=== PATIENT | female | born 1960 | race Caucasian/White ===

== ENCOUNTER 2024-03-28 07:46 | Outpatient (OUT) | payer OTHER, SELFPAY ==
[2024-03-28 08:34] LABS: Basophils Percent Auto 0.3 % (0.2-2.0); Eosinophils Absolute Auto 0.3 10^3/uL (0.0-0.7); Eosinophils Percent Auto 3.8 % (0.9-7.0); Hematocrit 40.8 % (36.0-48.0); Hemoglobin 13.3 g/dL (12.0-16.0); Immature Granulocytes Abs Auto 0.04 10^3/uL (0.00-0.03); Immature Granulocytes Pct Auto 0.6 % (0.0-0.5); Lymphocytes Absolute Auto 1.6 10^3/uL (1.2-3.8); Lymphocytes Percent Auto 22.5 % (20.5-60.0); Mean Corpuscular HGB Conc 32.6 g/dL (29.9-35.2); Mean Corpuscular Hemoglobin 29.2 pg (26.7-34.0); Mean Corpuscular Volume 89.5 fL (81.0-99.0); Mean Platelet Volume 13.5 fL (9.5-13.5); Monocytes Absolute Auto 0.8 10^3/uL (0.3-0.8); Monocytes Percent Auto 11.2 % (1.7-12.0); Neutrophils Absolute Auto 4.4 10^3/uL (1.4-6.5); Neutrophils Percent Auto 61.6 % (43.0-75.0); Platelet Count 144 10^3/uL (150-450); Red Blood Count 4.56 10^6/uL (4.20-5.40); Red Cell Distribution Width 12.7 % (11.0-15.0); White Blood Count 7.1 10^3/uL (4.0-11.0)
[2024-03-28 08:58] LABS: Estimated Average Glucose 120 mg/dL; Glycohemoglobin A1C 5.8 % (4.5-6.2)
[2024-03-28 11:21] LABS: Alanine Aminotransferase 31 U/L (14-59); Albumin Globulin Ratio 0.8; Albumin Level 3.1 g/dL (3.4-5.0); Alkaline Phosphatase 83 U/L (46-116); Anion Gap 10.3; Aspartate Amino Transferase 26 U/L (15-37); BUN Creatinine Ratio 28.1; Bilirubin Total 0.6 mg/dL (0.2-1.0); Calcium 9.2 mg/dL (8.5-10.1); Carbon Dioxide 28.8 mmol/L (21.0-32.0); Chloride 104 mmol/L (98-107); Chol HDL Ratio 3.6; Cholesterol 156 mg/dL (<=200); Estimated GFR (African America >60 (>=60); Estimated GFR (Non-African Ame >60 (>=60); Free T3 1.75 pg/mL (2.18-3.98); Globulin 3.7 g/dL; Glucose 94 mg/dL (74-106); HDL Cholesterol 43 mg/dL (40-60); Potassium 4.1 mmol/L (3.5-5.1); Sodium 139 mmol/L (136-145); Thyroid Stimulating Hormone 0.667 uIU/mL (0.358-3.740); Total Protein 6.8 g/dL (6.4-8.2); Triglycerides 155 mg/dL (<=150)
== END 2024-03-28 07:47 | disposition home or self-care (01) ==
LOC: LAB 07:47
PROVIDERS: PCP Family Medicine; Visit Provider Family Medicine
DX: E78.5 Hyperlipidemia, unspecified (principal); D64.9 Anemia, unspecified; Z12.12 Encounter for screening for malignant neoplasm of rectum; Z79.899 Other long term (current) drug therapy; R53.83 Other fatigue; R73.09 Other abnormal glucose
CPT/HCPCS: 36415; 80053; 80061; 83036; 84436; 84443; 84481; 85025

== ENCOUNTER 2024-09-26 06:50 | Outpatient (OUT) | payer OTHER, SELFPAY ==
--- OUTSIDE RECORDS SUMMARY | 2024-09-26 06:51 | XMS_ITS | CCD ---
Author Organization [facility] Care Team Providers Care Regional Sales Engineer Name Role Phone GITA ., DR MORIN Primary Care Unavailable KARASIK ., DR RAMOS Admitting Unavailabl e KARASIK ., DR RAMOS Attending Unavailabl e KARASIK ., DR RAMOS Consulting Unavailabl e ZIEBER, DR TEE Muller Consulting Unavailable HOY ., DR MORIN Attending Unavailable HOY ., DR MORIN Consulting Unavailable HOY ., DR MORIN Primary Care Unavailable HOY ., DR MORIN Admitting Unavailable HOY ., DR MORIN Attending Unavailable HOY ., DR MORIN Consulting Unavailable HOY ., DR MORIN Primary Care Unavailable HOY ., DR MORIN Admitting Unavailable HOY ., DR MORIN Consulting Unavailable HOY ., DR MORIN Primary Care Unavailable HOY ., DR MORIN Admitting Unavailable HOY ., DR MORIN Attending Unavailable Problems Active Problems Problem Classification Problem Date Documented Da te Episodic/Chronic Nutritional deficiencies (1 source) Vitamin D deficiency, unspecified; Translations: [VITAMIN D DEFICIENCY UNSPECIFIED] Onset: 02-09-2023 Chronic Unclassified (3 sources) COUGH, UNSPECIFIED; Translations: [COUGH, UNSPECIFIED] Onset: 10-27-2022 Unclassified (4 sources) CONTACT W/AND (SUSP) EXPOS COVID-19; Translations: [CONTACT W/AND (SUSP) EXPOS COVID-19] Onset: 07-27-2022 Past or Other Problems Problem Classification Problem Date Documented Da te Episodic/Chronic Other screening for suspected conditions (not mental disorders or infectious disease) (4 sources) Encounter for screening mammogram for malignant neoplasm of breast; Translations: [ENC SCR MAMMO MALIG NEOPLASM BREAST] Onset: 05-09-2022 Episodic Other upper respiratory disease (1 source) Nasal congestion; Translations: [NASAL CONGESTION] Onset: 10-27-2022 Episodic Other upper respiratory infections (1 source) Acute sinusitis, unspecified; Translations: [ACUTE SINUSITIS UNSPECIFIED] Onset: 07-27-2022 Episodic Residual codes; unclassified (1 source) Family history of leukemia; Translations: [FAMILY HISTORY OF LEUKEMIA] Onset: 05-12-2022 Episodic Residual codes; unclassified (1 source) Family history of malignant neoplasm of prostate; Translations: [FAMILY HX MALIG NEOPLASM PROSTATE] Onset: 05-12-2022 Episodic Unclassified (1 source) COUGH, UNSPECIFIED; Translations: [COUGH, UNSPECIFIED] Onset: 10-23-2022 Unclassified (1 source) CONTACT W/AND (SUSP) EXPOS COVID-19; Translations: [CONTACT W/AND (SUSP) EXPOS COVID-19] Onset: 07-26-2022 Results Test Name Value Interpretation Reference Range Facility INSULINon 02-06-2023 Insulin 14.0 uIU/mL Normal 2.6-24.9 [facility] Comment on above: Performed By: #### I NSULIN #### [facility] [address] [place] [address] Dr. Marium Murillo CBC AUTO DIFFon 02-05-2023 BASO # 0.0 103/ul Normal 0.0-0.1 [facility] Comment on above: Performed By: #### C BC #### [facility] [address] [place] [address] Dr. Marium Murillo Basophils/100 WBC (Bld) 0.3 % Normal 0.2-2.0 [facility] Comment on above: Performed By: #### C BC #### [facility] [address] [place] [address] Dr. Marium Murillo EO # 0.2 103/ul Normal 0.0-0.7 [facility] Comment on above: Performed By: #### C BC #### [facility] [address] [place] [address] Dr. Marium Murillo Eosinophils/100 WBC (Bld) 3.5 % Normal 0.9-7.0 [facility] Comment on above: Performed By: #### C BC #### [facility] [address] [place] [address] Dr. Marium Murillo Erythrocyte distribution width (RBC) [Ratio] 13.1 % Normal 11.0-15.0 [facility] Comment on above: Performed By: #### C BC #### [facility] [address] [place] [address] Dr. Marium Murillo Hematocrit (Bld) [Volume fraction] 41.6 % Normal 36.0-48.0 [facility] Comment on above: Performed By: #### C BC #### [facility] [address] [place] [address] Dr. Marium Murillo Hemoglobin (Bld) [Mass/Vol] 13.4 g/dL Normal 12.0-16.0 [facility] Comment on above: Performed By: #### C BC #### [facility] [address] [place] [address] Dr. Marium Murillo IG # 0.03 10e3/ul Normal 0.00-0.03 [facility] Comment on above: Performed By: #### C BC #### [facility] [address] [place] [address] Dr. Marium Murillo IG % 0.5 % Normal 0.0-0.5 [facility] Comment on above: Performed By: #### C BC #### [facility] [address] [place] [address] Dr. Marium Murillo LYMPH # 1.5 103/ul Normal 1.2-3.8 [facility] Comment on above: Performed By: #### C BC #### [facility] [address] [place] [address] Dr. Marium Murillo Lymphocytes/100 WBC (Bld) 23.8 % Normal 20.5-60.0 [facility] Comment on above: Performed By: #### C BC #### [facility] [address] [place] [address] Dr. Marium Murillo MANUAL DIFF REQ NO Normal [facility] Comment on above: Performed By: #### C BC #### [facility] [address] [place] [address] Dr. Marium Murillo MCH (RBC) [Entitic mass] 28.8 pg Normal 26.7-34.0 [facility] Comment on above: Performed By: #### C BC #### [facility] [address] [address] [address] Marium Murillo MCHC (RBC) [Mass/Vol] 32.2 g/dL Normal 29.9-35.2 [facility] Comment on above: Performed By: #### C BC #### [facility] [address] [address] [address] Marium Murillo MCV (RBC) [Entitic vol] 89.3 fL Normal 81.0-99.0 [facility] Comment on above: Performed By: #### C BC #### [facility] [address] [place] [address] Dr. Marium Murillo MONO # 0.8 103/ul Normal 0.3-0.8 [facility] Comment on above: Performed By: #### C BC #### [facility] [address] [place] [address] Dr. Marium Murillo Monocytes/100 WBC (Bld) 12.2 % Critically high 1.7-12.0 [facility] Comment on above: Performed By: #### C BC #### [facility] [address] [place] [address] Dr. Marium Murillo NEUT # 3.8 103/ul Normal 1.4-6.5 [facility] Comment on above: Performed By: #### C BC #### [facility] [address] [place] [address] Dr. Marium Murillo Neutrophils/100 WBC (Bld) 59.7 % Normal 43.0-75.0 [facility] Comment on above: Performed By: #### C BC #### [facility] [address] [address] [address] Marium Murillo Platelet mean volume (Bld) [Entitic vol] 13.3 fL Normal 9.5-13.5 [facility] Comment on above: Performed By: #### C BC #### [facility] [address] [place] [address] Dr. Marium Murillo PLT 172 103/ul Normal 150-450 [facility] Comment on above: Performed By: #### C BC #### [facility] [address] [address] [address] Marium Murillo RBC 4.66 106/ul Normal 4.20-5.40 [facility] Comment on above: Performed By: #### C BC #### [facility] [address] [address] [address] Marium Murillo WBC 6.3 103/ul Normal 4.0-11.0 [facility] Comment on above: Performed By: #### C BC #### [facility] [address] [address] [address] Marium Murillo FREE THYROXINE INDEX T7on FTI 1.51 Normal 1.30-4.50 [facility] Comment on above: Performed By: #### T SH, LIPID, CMP, T7 ####[facility] [address] [address]Dr. Marium Murillo T3U 35.0 % Normal 30.0-39.0 [facility] Comment on above: Performed By: #### T SH, LIPID, CMP, T7 ####[facility] [address] [id number]. Marium Murillo T4 [Mass/Vol] 4.30 ug/dL Critically low 4.80-13.90 [facility] Comment on above: Performed By: #### T SH, LIPID, CMP, T7 ####[facility] [address] [id number]. Marium Murillo GLYCOHEMOGLOBIN A1Con 2022 ADA RECOMMENDATION SEE BELOW Normal [facility] Comment on above: Result Comment: ADA RECOMMENDED LIMIT 4.0 - 6.0 ADA THERAPEUTIC TARGET < 7.0 ACTION SUGGESTED > 7.0 Performed By: #### A 1C #### [facility] [address] [address] [address] Marium Murillo Glucose [Mass/Vol] 111 mg/dL Normal [facility] Comment on above: Performed By: #### A 1C #### [facility] [address] [address] [address] Marium Murillo HbA1c (Bld) [Mass fraction] 5.5 % Normal 4.5-6.2 [facility] Comment on above: Performed By: #### A 1C #### [facility] [address] [address] [address] Marium Murillo IRONon 02-05-2023 Iron [Mass/Vol] 72.0 ug/dL Normal 50.0-170.0 [facility] Comment on above: Performed By: #### V ITAD, IRON #### [facility] [address] [address] [address] Marium Murillo LIPID PROFILEon 02-05-2023 CHOL-HDL RATIO NORM SEE BELOW Normal [facility] Comment on above: Result Comment: 3.3 - 4.4 LOW RISK 4.4 - 7.1 AVERAGE RISK 7.1 - 11.0 MODERATE RISK >11.0 HIGH RISK Performed By: #### T SH, LIPID, CMP, T7 ####[facility] [address] [address]Dr. Marium Murillo Cholesterol [Mass/Vol] 179 mg/dL Normal <=200 [facility] Comment on above: Performed By: #### T SH, LIPID, CMP, T7 ####[facility] [address] [address]Dr. Marium Murillo Cholesterol in HDL [Mass/Vol] 46 mg/dL Normal 40-60 [facility] Comment on above: Performed By: #### T SH, LIPID, CMP, T7 ####[facility] [address] [address]Dr. Marium Murillo Cholesterol in LDL [Mass/Vol] 105.6 mg/dL Normal [facility] Comment on above: Performed By: #### T SH, LIPID, CMP, T7 ####[facility] [address] [id number]. Marium Murillo Cholesterol.total/Ch olesterol in HDL [Mass ratio] 3.9 {ratio} Normal [facility] Comment on above: Performed By: #### T SH, LIPID, CMP, T7 ####[facility] [address] [id number]. Marium Murillo HDL NORMAL > or = 60 mg/dl - LO W CARDIOVASCULAR RISK <40 mg/dl - HIGH CARDIOVASCULAR RISK Normal [facility] Comment on above: Performed By: #### T SH, LIPID, CMP, T7 ####[facility] [address] [address]Dr. Marium Murillo LDL CALC NORMAL SEE BELOW Normal [facility] Comment on above: Result Comment: <100 mg/dl OPTIMAL 100 - 129 mg/dl NEAR OR ABOVE OPTIMAL 130 - 159 mg/dl BORDERLINE HIGH 160 - 189 mg/dl HIGH >190 mg/dl VERY HIGH Performed By: #### T SH, LIPID, CMP, T7 ####[facility] [address] [address]Dr. Marium Murillo Triglyceride [Mass/Vol] 137 mg/dL Normal <=150 [facility] Comment on above: Performed By: #### T SH, LIPID, CMP, T7 ####[facility] [address] [address]Dr. Marium Murillo VLDL CALC 27.4 mg/dL Normal [facility] Comment on above: Performed By: #### T SH, LIPID, CMP, T7 ####[facility] [address] [address]Dr. Marium Murillo PROF 14(COMP METB)on 023 Albumin [Mass/Vol] 3.5 g/dL Normal 3.4-5.0 [facility] Comment on above: Performed By: #### T SH, LIPID, CMP, T7 ####[facility] [address] [address]Dr. Marium Murillo Albumin/Globulin [Mass ratio] 1.0 {ratio} Normal [facility] Comment on above: Performed By: #### T SH, LIPID, CMP, T7 ####[facility] [address] [address]Dr. Marium Murillo ALP [Catalytic activity/Vol] 84 U/L Normal 46-116 [facility] Comment on above: Performed By: #### T SH, LIPID, CMP, T7 ####[facility] [address] [id number]. Marium Murillo ALT [Catalytic activity/Vol] 32 U/L Normal 14-59 [facility] Comment on above: Performed By: #### T SH, LIPID, CMP, T7 ####[facility] [address] [place] [id number]. Marium Murillo Anion gap [Moles/Vol] 8.2 mmol/L Normal [facility] Comment on above: Performed By: #### T SH, LIPID, CMP, T7 ####[facility] [address] [place] [address]Dr. Marium Murillo AST [Catalytic activity/Vol] 27 U/L Normal 15-37 [facility] Comment on above: Performed By: #### T SH, LIPID, CMP, T7 ####[facility] [address] [address]Dr. Marium Murillo Bilirubin [Mass/Vol] 0.4 mg/dL Normal 0.2-1.0 [facility] Comment on above: Performed By: #### T SH, LIPID, CMP, T7 ####[facility] [address] [address]Dr. Marium Murillo Calcium [Mass/Vol] 9.2 mg/dL Normal 8.5-10.1 [facility] Comment on above: Performed By: #### T SH, LIPID, CMP, T7 ####[facility] [address] [address]Dr. Marium Murillo Chloride [Moles/Vol] 107 mmol/L Normal 98-107 [facility] Comment on above: Performed By: #### T SH, LIPID, CMP, T7 ####[facility] [address] [address]Dr. Marium Murillo CO2 [Moles/Vol] 31.9 mmol/L Normal 21.0-32.0 [facility] Comment on above: Performed By: #### T SH, LIPID, CMP, T7 ####[facility] [address] [address]Dr. Marium Murillo Creatinine [Mass/Vol] 0.59 mg/dL Normal 0.55-1.02 [facility] Comment on above: Performed By: #### T SH, LIPID, CMP, T7 ####[facility] [address] [address]Dr. Marium Murillo EGFR-AF KITTITIAN >60 Normal >=60 [facility] Comment on above: Performed By: #### T SH, LIPID, CMP, T7 ####[facility] [address] [address]Dr. Marium Murillo EGFR-NON AF KITTITIAN >60 Normal >=60 [facility] Comment on above: Performed By: #### T SH, LIPID, CMP, T7 ####[facility] [address] [address]Dr. Marium Murillo Globulin (S) [Mass/Vol] 3.6 g/dL Normal [facility] Comment on above: Performed By: #### T SH, LIPID, CMP, T7 ####[facility] [address] [address]Dr. Marium Murillo Glucose [Mass/Vol] 91 mg/dL Normal 74-106 [facility] Comment on above: Performed By: #### T SH, LIPID, CMP, T7 ####[facility] [address] [address]Dr. Marium Murillo Potassium [Moles/Vol] 4.1 mmol/L Normal 3.5-5.1 [facility] Comment on above: Performed By: #### T SH, LIPID, CMP, T7 ####[facility] [address] [address]Dr. Marium Murillo Protein [Mass/Vol] 7.1 g/dL Normal 6.4-8.2 [facility] Comment on above: Performed By: #### T SH, LIPID, CMP, T7 ####[facility] [address] [address]Dr. Marium Murillo Sodium [Moles/Vol] 143 mmol/L Normal 136-145 [facility] Comment on above: Performed By: #### T SH, LIPID, CMP, T7 ####[facility] [address] [place], [place] [address]Xk. Marium Murillo Urea nitrogen [Mass/Vol] 21.0 mg/dL Critically high 7.0-18.0 [facility] Comment on above: Performed By: #### T SH, LIPID, CMP, T7 ####[facility] [address] [place], [place] [address]Gq. Marium Murillo Urea nitrogen/Creatinine [Mass ratio] 35.6 mg/mg Normal [facility] Comment on above: Performed By: #### T SH, LIPID, CMP, T7 ####[facility] [address] [place], [place] [address]Bp. Marium Murillo TSHon 02-05-2023 TSH 0.666 uIU/mL Normal 0.358-3.740 [facility] Comment on above: Performed By: #### T SH, LIPID, CMP, T7 #### [facility] [address] [address] [address] Marium Murillo VITAMIN D 25 OHon 02-05-2023 VIT D 25-OH 26.2 ng/mL Normal [facility] Comment on above: Performed By: #### Patricia [place] IRON #### [facility] [address] [place] [address] Dr. Marium Murillo VIT D RANGES SEE BELOW Normal [facility] Comment on above: Result Comment: <20 ng/mL Vit D deficient 20 - <30 ng/mL Vit D insufficient 30 - 100 ng/mL Vit D sufficient >100 ng/mL Potential Toxicity Performed By: #### Patricia [place], IRON #### [facility] [address] [place] [address] Dr. Marium Murillo Covid-19 PCR ([facility])on 10-05 SARS-CoV-2 (COVID-19) RNA MICHELL+probe Ql (Unsp spec) Not detected Normal NOT DETECTED [facility] Comment on above: Result Comment: When diagnostic testing is negative, the possibility of a false negative should be considered in the context of a patient's recent exposures and the presence of clinical signs and symptoms consistent with SARS-CoV-2. This test is not yet approved or cleared by the [place] FDA. When there are no FDA-approved or cleared tests available, and other criteria are met, FDA can make tests available under an emergency access mechanism called an Emergency Use Authorization (EUA). The EUA for this test is supported by the [place] of Health and Human Service's declaration that circumstances exist to justify the emergency use of in vitro diagnostics for the detection and/or diagnosis of the virus that causes COVID-19. This EUA will remain in effect for the duration of the COVID-19 declaration justifying emergency of IVDs, unless it is terminated or revoked by the FDA (after which the test may no longer be used). Performed By: #### C VDTB #### [facility] [address] [place] [address] Dr. Marium Murillo INFLUENZA A AND B AGon 10-23 INFLUBNEGH SEE BELOW Normal [facility] Comment on above: Result Comment: Nega tive for Flu B protein antigen. Infection due to Flu B cannot be ruled out. Flu B antigen in the sample may be below the detection limit of the test. Performed By: #### I NFLUAB #### [facility] [address] [place] [address] Dr. Marium Murillo INFLUENZA A AG Positive Abnormal NEGATIVE SEE COMMENT [facility] Comment on above: Performed By: #### I NFLUAB #### [facility] [address] [place] [address] Dr. Marium Murillo INFLUENZA B AG Negative Normal NEGATIVE SEE COMMENT [facility] Comment on above: Performed By: #### I NFLUAB #### [facility] [address] [place] [address] Dr. Marium Murillo INFLUPOSH SEE BELOW Normal [facility] Comment on above: Result Comment: NOTE : Live attenuated influenzae vaccine viruses can cause a positive result for a rapid influenza diagnostic test if administered up to 7 days prior to rapid testing. Performed By: #### I NFLUAB #### [facility] [address] [place] [address] Dr. Marium Murillo INTERNAL CONTROLS Within Normal Limits Normal Wi thin Normal Limits [facility] Comment on above: Performed By: #### I NFLUAB #### [facility] [address] [place] [address] Dr. Marium Murillo Covid-19 PCR ([facility])on 07-07 SARS-CoV-2 (COVID-19) RNA MICHELL+probe Ql (Unsp spec) Not detected Normal NOT DETECTED [facility] Comment on above: Result Comment: This test is not yet approved or cleared by the [place] FDA. When there are no FDA-approved or cleared tests available, and other criteria are met, FDA can make tests available under an emergency access mechanism called an Emergency Use Authorization (EUA). The EUA for this test is supported by the [place] [employer] of Health and Human Service's (HHS's) declaration that circumstances exist to justify the emergency use of in vitro diagnostics for the detection and/or diagnosis of the virus that causes COVID-19. This EUA will remain in effect (meaning this test can be used) for the duration of the COVID-19 declaration justifying emergency of IVDs, unless it is terminated or revoked by FDA (after which the test may no longer be used). When diagnostic testing is negative, the possibility of a false negative should be considered in the context of a patient's recent exposures and the presence of clinical signs and symptoms consistent with SARS-CoV-2. Performed By: #### C VDTB #### [facility] [address] [place] [address] Dr. Marium Murillo MG MAMM SCREEN 3D JOSÉ MIGUEL CADon 05-09-2022 MG MAMM SCREEN 3D JOSÉ MIGUEL CAD Patient: EMILY WATKINS Exam Date: 05/09/2022 : 1960 Gender:F Ordering : DR RICHARD FREEMAN . Admission #: [id number] Family : Order #: [id number] CLICK HERE TO VIEW EXAM RADIOLOGY REPORT PROCEDURE: MAMMOGRAM SCREENING 3D BILATERAL CAD COMPARISON: MG MAMM SCREEN 3D JOSÉ MIGUEL CAD, 04/19/2021. MG MAMM SCREEN JOSÉ MIGUEL W CAD, 01/07/2019. INDICATIONS: Screening mammography Calculator Name NCI Breast Cancer Risk Assessment Tool 5 Year Breast Cancer Risk 2.00% Lifetime Breast Cancer Risk 9.70% Personal Breast Cancer No Personal Ovarian Cancer No Treatments None Family Cancers Grandmother-maternal with leukemia cancer at age 80; Grandfather-maternal with prostate cancer at age 50. LOCATION: [facility] BREAST COMPOSITION: Almost entirely fatty. FINDINGS: DIAGNOSTIC CATEGORY 1--NEGATIVE. RIGHT BREAST: No significant suspicious finding. No significant change has occurred. LEFT BREAST: No significant suspicious finding. No significant change has occurred. RECOMMENDATIONS: ROUTINE MAMMOGRAM AND CLINICAL EVALUATION IN 12 MONTHS. PLEASE NOTE: A NORMAL MAMMOGRAM DOES NOT EXCLUDE THE POSSIBILITY OF BREAST CANCER. A CLINICALLY SUSPICIOUS PALPABLE LUMP SHOULD BE BIOPSIED. Dictated by: Tee Price M.D. on 05/11/2022 at 13:23 Approved by: Tee Price M.D. on 05/11/2022 at 13:25 Normal [facility] 07-25-2021 CNPN Telephone ([facility]) EMILY CALLES ([id number]) 1960 F Date Time Provider Department 07/25/21 VINAY HALL [facility] During your visit today, we recorded the following information about you: Chanel Ward 07/25/2021 9:15 AM Signed Additional [place] paperwork from [employer] being faxed for completion. Patient saw Dr. Hall on and was cleared to return to work. However, her employer is redirecting her to [employer] for return clearance. New return to work date on 07/27/2021 Lalitha can be reached at [phone] with any questions. Chanel [facility] Ivnaia Slater MA 07/25/2021 3:41 PM Signed Noted. I will drop off paperwork at [facility] so that Myra can have Dr. Hall sign off on and fax tomorrow. JUVENAL Carrillo MA 07/27/2021 2:46 PM Signed Employer Forms for Patient/Caregiver Time Off of Work Completed, signed by provider, and returned to below contact. Completed copy scanned in [facility] Date of Surgery: 06/24/2021 Estimated RTW date:07/25/2021 Employer: [employer] Date sent to employer: 07/27/2021 Received fax confirmation: YES Allergies As of Date: 07/25/2021 (No Known Allergies) Date Reviewed: 07/21/2021 Reviewed by: Vinay Hall MD - Fully Assessed Reason for Visit: FMLA Paperwork [7993] Prescriptions as of 07/27/2021 - oxyCODONE IR (ROXICODONE) 5 mg immediate release tablet Take 1 tablet by mouth every 6 hours as needed for pain. - neomycin 500 mg tablet Take 2 tablets by mouth as directed. Take 2 tablets at 6 pm, again at 7 pm and at 11 pm the evening prior to surgery - metroNIDAZOLE (FLAGYL) 500 mg tablet Take 1 tablet by mouth as directed. Take 1 tablet at 6 pm, another at 7 pm and again at 11 pm, the evening prior to surgery - citalopram (CELEXA) 20 mg tablet Take 20 mg by mouth once daily. - fluocinonide (LIDEX) 0.05 % cream Apply 1 application to affected area as needed. - liothyronine (CYTOMEL) 5 mcg tablet Take 10 mcg by mouth once daily. - diclofenac, EC, (VOLTAREN) 75 mg EC tablet Take 75 mg by mouth twice daily. - fenofibrate nanocrystallized (TRICOR) 145 mg tablet Take 145 mg by mouth once daily. - multivit with minerals/lutein (MULTIVITAMIN 50 PLUS ORAL) Take 1 tablet by mouth once daily. Problem List As Of Date 07/25/2021 Noted Resolved Colonic mass [K63.89] 06/09/2021 Mixed hyperlipidemia [E78.2] 06/09/2021 Depression [F32.9] 06/09/2021 Diverticula of colon [K57.30] 06/09/2021 IBS (irritable bowel syndrome) [K58.9] Acquired hypothyroidism [E03.9] Morbidly obese (HCC) [E66.01] Encounter Status:Closed by RODRÍGUEZ WILSON on 07/27/21 Normal [facility] CNCOon 07-22-2021 CNCO Letter Text Normal [facility] CNOVon 07-21-2021 CNOV Office Visit (NIRALISAV ) EMILY CALLES ([id number]) 1960 F Date Time Provider Department 07/21/21 11:45 AM VINAY HALL During your visit today, we recorded the following information about you: Pulse Blood pressure Weight 94/minute 97/70 100.7 kg Vinay Hall MD 07/21/2021 12:38 PM Signed COLORECTAL SURGERY July 21, 2021 Emily Haywood 61 year old Chief Complaint: Post-op visit s/p Laparoscopic Proctosigmoidectomy (Low Anterior Resection), Laparoscopic Mobilization of Splenic Flexure, Flexible Sigmoidoscopy, Laparoscopic Omental Pedicle Flap 06/24/21 History of Present Illness: Emily Haywood is a 61 year old female here for post-op visit. Pathology: FINAL DIAGNOSIS 1. Sigmoid colon and rectum, resection (A) - Tubulovillous adenoma with focal high-grade dysplasia (see comment). - Diverticulosis. - Twelve lymph nodes, negative for malignancy (0). 2. Distal donut, excision (B) - Segment of colon with no diagnostic abnormality. She feels well. Constipation at times. No pain. Tolerating a diet PAST MEDICAL HISTORY Diagnosis Date - Acquired hypothyroidism - Generalized anxiety disorder - IBS (irritable bowel syndrome) - Mixed hyperlipidemia - Obesity PAST SURGICAL HISTORY Procedure Laterality Date - COLONOSCOPY 2020 - CYST EXCISION Left foot x 2 - EXTRACTION ERUPTED TOOTH wisdom teeth - ORAL SURGERY PROCEDURE Gum surgery for gingivitis - REVISE MEDIAN N/CARPAL TUNNEL SURG Right - SHOULDER SURGERY HX Right 2019 - SIGMOIDOSCOPY 2020 - TONSILLECTOMY HX 1963 Current Outpatient Medications Medication Sig Dispense Refill - oxyCODONE IR (ROXICODONE) 5 mg immediate release tablet Take 1 tablet by mouth every 6 hours as needed for pain. 25 tablet 0 - neomycin 500 mg tablet Take 2 tablets by mouth as directed. Take 2 tablets at 6 pm, again at 7 pm and at 11 pm the evening prior to surgery 6 tablet 0 - metroNIDAZOLE (FLAGYL) 500 mg tablet Take 1 tablet by mouth as directed. Take 1 tablet at 6 pm, another at 7 pm and again at 11 pm, the evening prior to surgery 3 tablet 0 - citalopram (CELEXA) 20 mg tablet Take 20 mg by mouth once daily. - fluocinonide (LIDEX) 0.05 % cream Apply 1 application to affected area as needed. - liothyronine (CYTOMEL) 5 mcg tablet Take 10 mcg by mouth once daily. - diclofenac, EC, (VOLTAREN) 75 mg EC tablet Take 75 mg by mouth twice daily. - fenofibrate nanocrystallized (TRICOR) 145 mg tablet Take 145 mg by mouth once daily. - multivit with minerals/lutein (MULTIVITAMIN 50 PLUS ORAL) Take 1 tablet by mouth once daily. No current facility-administered medications for this visit. ALLERGIES No Known Allergies FAMILY HISTORY Problem Relation Age of Onset - other (GBS) Mother 40 - Dementia Mother - Heart Father - Vision loss Father Social History Tobacco Use - Smoking status: Former Smoker Packs/day: 0.75 Years: 15.00 Pack years: 11.25 Types: Cigarettes Quit date: 1989 Years since quittin.7 - Smokeless tobacco: Never Used Vaping Use - Vaping Use: Never used Substance Use Topics - Alcohol use: Not Currently - Drug use: Never Physical Exam: BP 97/70 Pulse 94 Wt 100.7 kg (222 lb) BMI 38.11 kg/m? General Appearance: Well appearing, alert, in no acute distress, well-hydrated, well nourished. Abdomen: soft, nontender, incisions well healed Assessment Assessment and Plan: Emily Haywood is a 61 year old female status post laparoscopic LAR for large circumferential rectal polyp. Pathology confirmed tubulovillous adenoma. She will continue use MiraLAX as needed for constipation. She will return to see me as needed. She knows she needs a colonoscopy in 1 year with her endoscopist. Vinay Hall MD Colorectal Surgery Referring Provider: VINAY HALL [[id number]] Allergies As of Date: 07/21/2021 (No Known Allergies) Date Reviewed: 07/21/2021 Reviewed by: Vinay Hall MD - Fully Assessed Reason for Visit: Post Op [174] Primary Visit Diagnosis:Rectal polyp [K62.1] Prescriptions as of 07/21/2021 - oxyCODONE IR (ROXICODONE) 5 mg immediate release tablet Take 1 tablet by mouth every 6 hours as needed for pain. - neomycin 500 mg tablet Take 2 tablets by mouth as directed. Take 2 tablets at 6 pm, again at 7 pm and at 11 pm the evening prior to surgery - metroNIDAZOLE (FLAGYL) 500 mg tablet Take 1 tablet by mouth as directed. Take 1 tablet at 6 pm, another at 7 pm and again at 11 pm, the evening prior to surgery - citalopram (CELEXA) 20 mg tablet Take 20 mg by mouth once daily. - fluocinonide (LIDEX) 0.05 % cream Apply 1 application to affected area as needed. - liothyronine (CYTOMEL) 5 mcg tablet Take 10 mcg by mouth once daily. - diclofenac, EC, (VOLTAREN) 75 mg EC tablet Take 75 mg by mouth twice daily. - fenofibrate nanocrystallized (TRICOR) 145 (more content not included)... Normal [facility] Consultation Noteon 06-29-20 Consultation Note [id number] :127 Normal [facility] EMILY CALLES ([id number]) 1960 F Date Time Provider Department 06/28/21 VINAY HALL [facility] During your visit today, we recorded the following information about you: Chanel Wadr 06/28/2021 9:25 AM Signed Patient called with concerns of a itchy rash on her upper abdomen that has gotten bigger over the last few days. Noticed after her Lovenox injection. Patient can be reached at [phone]. Chanel Orta RN 06/28/2021 10:49 AM Signed Returned call and spoke with patient, S/p Laparoscopic Proctosigmoidectomy (Low Anterior Resection), Laparoscopic Mobilization of Splenic Flexure, Flexible Sigmoidoscopy, Laparoscopic Omental Pedicle Flap 06/24 Cc: rash to torso -pt c/o a red, raised, itchy rash to torso -pt states it was noticed Sunday evening before discharge from [facility] -denies chest pain or shortness of breath -pt states it is not near the incision site, but surrounds it -concerned it is caused by the Lovenox injections -tried disitin for the itching with no relief Encouraged patient to try over the counter Benadryl cream and an ice pack to assist with the discomfort. Explained to continue with the Lovenox injections as this is likely caused by something else (possibly sheets in the hospital or the drape while in surgery). The office will call to scheduled her follow up appointment and she can be assessed at that time. Explained to call the office with persistent or worsening symptoms. Patient is understanding and agreeable with this plan. Allergies As of Date: 06/28/2021 (No Known Allergies) Date Reviewed: 06/25/2021 Reviewed by: Nely Anne RN - Fully Assessed Reason for Visit: Post Op [174] Prescriptions as of 06/28/2021 - enoxaparin (LOVENOX) 40 mg/0.4 mL Inject 0.4 mL subcutaneously once daily for 21 days. - oxyCODONE IR (ROXICODONE) 5 mg immediate release tablet Take 1 tablet by mouth every 6 hours as needed for pain. - neomycin 500 mg tablet Take 2 tablets by mouth as directed. Take 2 tablets at 6 pm, again at 7 pm and at 11 pm the evening prior to surgery - metroNIDAZOLE (FLAGYL) 500 mg tablet Take 1 tablet by mouth as directed. Take 1 tablet at 6 pm, another at 7 pm and again at 11 pm, the evening prior to surgery - citalopram (CELEXA) 20 mg tablet Take 20 mg by mouth once daily. - fluocinonide (LIDEX) 0.05 % cream Apply 1 application to affected area as needed. - liothyronine (CYTOMEL) 5 mcg tablet Take 10 mcg by mouth once daily. - diclofenac, EC, (VOLTAREN) 75 mg EC tablet Take 75 mg by mouth twice daily. - fenofibrate nanocrystallized (TRICOR) 145 mg tablet Take 145 mg by mouth once daily. - multivit with minerals/lutein (MULTIVITAMIN 50 PLUS ORAL) Take 1 tablet by mouth once daily. Problem List As Of Date 06/28/2021 Noted Resolved Colonic mass [K63.89] 06/09/2021 Mixed hyperlipidemia [E78.2] 06/09/2021 Depression [F32.9] 06/09/2021 Diverticula of colon [K57.30] 06/09/2021 IBS (irritable bowel syndrome) [K58.9] Acquired hypothyroidism [E03.9] Morbidly obese (HCC) [E66.01] Encounter Status:Closed by ЮЛИЯ ORTA on 06/28/21 Normal [facility] Telephone ([facility]) EMILY CALLES ([id number]) 1960 F Date Time Provider Department 06/28/21 ESTRELLITA MORA [facility] During your visit today, we recorded the following information about you: Estrellita Mora, Student 06/28/2021 11:19 AM Signed Record ID: [id number] Patient Name: Emily Haywood Hospital: [facility] [place]: [facility] [place] Attending: Vinay Hall Center: Colorectal Surgery INSTRUCTIONS Continue with script and ensure patient has appropriate number for [facility] or Appointment Center according to discharging physician?s specialty and location at end of call SN TRANSFER TO [facility] SURVEY INFORMATION Medical/Nurse Nautical Instrument Mechanic: Luisa Gallagher 1. Your discharge instructions are important in guiding you through the recovery process. Is there anything I could help you clarify on your discharge instructions? (Standard Question) No, no clarification needed 2. We encourage a follow up appointment with your physician. Do you have one scheduled? If not; What is the name of the doctor you should be seeing for your follow-up care? (Standard Question) No, patient prefers to schedule in own time 3. Many patients have concerns about their medications once they are home. Do you have any questions about getting or taking your medications? (Standard Question) No 4. Do you have any new or worsening symptoms? (Standard Question) Yes MA/SN Notes: Rash but Patient been in contact with doctor office about this Allergies As of Date: 06/28/2021 (No Known Allergies) Date Reviewed: 06/25/2021 Reviewed by: Nely Anne RN - Fully Assessed Reason for Visit: Follow Up [171] Cmt: All Clear Prescriptions as of 06/28/2021 - enoxaparin (LOVENOX) 40 mg/0.4 mL Inject 0.4 mL subcutaneously once daily for 21 days. - oxyCODONE IR (ROXICODONE) 5 mg immediate release tablet Take 1 tablet by mouth every 6 hours as needed for pain. - neomycin 500 mg tablet Take 2 tablets by mouth as directed. Take 2 tablets at 6 pm, again at 7 pm and at 11 pm the evening prior to surgery - metroNIDAZOLE (FLAGYL) 500 mg tablet Take 1 tablet by mouth as directed. Take 1 tablet at 6 pm, another at 7 pm and again at 11 pm, the evening prior to surgery - citalopram (CELEXA) 20 mg tablet Take 20 mg by mouth once daily. - fluocinonide (LIDEX) 0.05 % cream Apply 1 application to affected area as needed. - liothyronine (CYTOMEL) 5 mcg tablet Take 10 mcg by mouth once daily. - diclofenac, EC, (VOLTAREN) 75 mg EC tablet Take 75 mg by mouth twice daily. - fenofibrate nanocrystallized (TRICOR) 145 mg tablet Take 145 mg by mouth once daily. - multivit with minerals/lutein (MULTIVITAMIN 50 PLUS ORAL) Take 1 tablet by mouth once daily. Problem List As Of Date 06/28/2021 Noted Resolved Colonic mass [K63.89] 06/09/2021 Mixed hyperlipidemia [E78.2] 06/09/2021 Depression [F32.9] 06/09/2021 Diverticula of colon [K57.30] 06/09/2021 IBS (irritable bowel syndrome) [K58.9] Acquired hypothyroidism [E03.9] Morbidly obese (HCC) [E66.01] Encounter Status:Closed by ESTRELLITA MORA on 8/24/21 Normal [facility] Basic Metabolic Panlon 06-26 Anion gap [Moles/Vol] 9 mmol/L Normal 9-18 [facility] Comment on above: Performed By: #### B LEONCIO, CBCDIF #### [place] [phone] Calcium [Mass/Vol] 8.7 mg/dL Normal 8.5-10.5 [facility] Comment on above: Performed By: #### B LEONCIO, CBCDIF #### [phone] Chloride [Moles/Vol] 109 mmol/L Normal 98-110 [facility] Comment on above: Performed By: #### B LEONCIO, CBCDIF #### [place] [phone] CO2 [Moles/Vol] 25 mmol/L Normal 23-32 [facility] Comment on above: Performed By: #### B LEONCIO, CBCDIF #### [phone] Creatinine [Mass/Vol] 0.54 mg/dL Low 0.70-1.40 [facility] Comment on above: Performed By: #### B LEONCIO, CBCDIF #### [place] [phone] eGFR- Amer. >60 Normal >60 [facility] Comment on above: Performed By: #### B LEONCOI, CBCDIF #### [place] [id number] eGFR-All Other Races >60 Normal >60 [facility] Comment on above: Result Comment: eGFR (Estimated GFR) Units of measure: mL/min/1.73 meters squared eGFR is derived from the reexpressed MDRD Study equation using the following parameters: serum creatinine, age, gender and race. The creatinine assay has been calibrated to be traceable to IDMS. An eGFR <60 mL/min/1.73m2 for >3 months is consistent with chronic kidney disease. Refer to KDOQI guidelines for clinical interpretation. In patients with unstable renal function, e.g. those with acute kidney injury, the eGFR may not accurately reflect actual GFR. Performed By: #### B LEONCIO, CBCDIF #### [phone] Glucose [Mass/Vol] 78 mg/dL Normal 65-100 [facility] Comment on above: Performed By: #### B MP, CBCDIF #### [place] [phone] Potassium [Moles/Vol] 4.1 mmol/L Normal 3.5-5.0 [facility] Comment on above: Performed By: #### B LEONCIO, CBCDIF #### [place] [phone] Sodium [Moles/Vol] 143 mmol/L Normal 132-148 [facility] Comment on above: Performed By: #### B LEONCIO, CBCDIF #### [place] [phone] Urea nitrogen [Mass/Vol] 13 mg/dL Normal 8-25 [facility] Comment on above: Performed By: #### B LEONCIO, CBCDIF #### [place] [phone] CBC and Differentialon 06-26 Abs Baso <0.03 Normal <0.11 [facility] Comment on above: Performed By: #### B LEONCIO, CBCDIF #### [place] [phone] Abs Braxton 0.71 k/uL Normal <0.87 [facility] Comment on above: Performed By: #### B LEONCIO, CBCDIF #### [place] [phone] Abs Neut 4.13 k/uL Normal 1.45-7.50 [facility] Comment on above: Performed By: #### B LEONCIO, CBCDIF #### [place] [phone] Absolute nRBC <0.01 Normal <0.01 [facility] Comment on above: Performed By: #### B MP, CBCDIF #### [address] Basophils/100 WBC (Bld) 0.3 % Normal [facility] Comment on above: Performed By: #### B MP, CBCDIF #### [place] [phone] DTYPE Auto Diff Normal [facility] Comment on above: Performed By: #### B MP, CBCDIF #### [address] Eosinophils (Bld) [#/Vol] 0.13 10*3/uL Normal <0.46 [facility] Comment on above: Performed By: #### B MP, CBCDIF #### [address] Eosinophils/100 WBC (Bld) 2.0 % Normal [facility] Comment on above: Performed By: #### B MP, CBCDIF #### [place] [phone] Erythrocyte distribution width (RBC) [Ratio] 12.6 % Normal 11.5-15.0 [facility] Comment on above: Performed By: #### B MP, CBCDIF #### [address] Hematocrit (Bld) [Volume fraction] 33.7 % Low 36.0-46.0 [facility] Comment on above: Performed By: #### B MP, CBCDIF #### [place] [phone] Hemoglobin (Bld) [Mass/Vol] 11.0 g/dL Low 11.5-15.5 [facility] Comment on above: Performed By: #### B MP, CBCDIF #### [place] [phone] Lymphocytes (Bld) [#/Vol] 1.49 10*3/uL Normal 1.00-4.00 [facility] Comment on above: Performed By: #### B MP, CBCDIF #### [phone] Lymphocytes/100 WBC (Bld) 23.0 % Normal [facility] Comment on above: Performed By: #### B MP, CBCDIF #### [place] [phone] MCH 29.4 pG Normal 26.0-34.0 [facility] Comment on above: Performed By: #### B MP, CBCDIF #### [place] [phone] MCHC (RBC) [Mass/Vol] 32.6 g/dL Normal 30.5-36.0 [facility] Comment on above: Performed By: #### B MP, CBCDIF #### [place] [phone] MCV (RBC) [Entitic vol] 90.1 fL Normal 80.0-100.0 [facility] Comment on above: Performed By: #### B MP, CBCDIF #### [phone] Monocytes/100 WBC (Bld) 11.0 % Normal [facility] Comment on above: Performed By: #### B MP, CBCDIF #### [place] [phone] Neutrophils/100 WBC (Bld) 63.7 % Normal [facility] Comment on above: Performed By: #### B MP, CBCDIF #### [place] [phone] NRBCs 0.0 /100 WBC Normal 0 [facility] Comment on above: Performed By: #### B MP, CBCDIF #### [place] [phone] Platelet mean volume (Bld) [Entitic vol] 13.5 fL High 9.0-12.7 [facility] Comment on above: Performed By: #### B MP, CBCDIF #### [place] [id number] [place] [address] Platelets (Bld) [#/Vol] 127 10*3/uL Low 150-400 [facility] Comment on above: Performed By: #### B MP, CBCDIF #### [place] [phone] RBC (Bld) [#/Vol] 3.74 10*6/uL Low 3.90-5.20 [facility] Comment on above: Performed By: #### B MP, CBCDIF #### [place] [phone] WBC (Bld) [#/Vol] 6.48 10*3/uL Normal 3.70-11.00 [facility] Comment on above: Performed By: #### B MP, CBCDIF #### [place] [address] CNDSon 06-26-2021 CNDS HNO ID: [id number] Author: Naa Garcia MD Service: Colorectal Author Type: Resident Type: Discharge Summary Filed: 06/26/2021 10:04 PM Note Text: Attestation signed by Vinay Hall MD at 06/27/2021 5:21 AM Attending Note I evaluated the patient and personally participated in the sinclair components. I agree with the resident's findings and plan as documented and have discussed the case and management of the patient's care with the resident. Signature: Vinay Hall MD Date: 06/27/2021 Time: 5:21 AM DISCHARGE SUMMARY PATIENT NAME: Emily Haywood ADMISSION DATE: 06/24/2021 DISCHARGE DATE: 06/26/2021 ATTENDING PHYSICIAN: Vinay Hall MD Code Status: Not on file Highest Readmission Risk Score: 10 The 30 day readmissions risk score is derived from an internally validated risk model which evaluates patient level characteristics, utilization history, medication orders and lab results up until the day of discharge. Patients with a score of 40 or above are considered highest risk for readmission. Specific patient level drivers will be listed at the bottom of the summary. CONSULTING TEAMS DURING HOSPITALIZATION: None Treatment Team: Attending Provider: Vinay Hall MD REASON FOR HOSPITALIZATION: Elective laparoscopic low anterior resection DIAGNOSIS: Colon cancer OPERATIONS DURING HOSPITALIZATION: Laparoscopic low anterior resection PROCEDURES DURING HOSPITALIZATION: No procedures performed HOSPITAL COURSE: 60 y/o F with history of villous adenoma of the rectosigmoid junction s/p laparoscopic hand assisted LAR on 06/24. She was sent to the floor to recover after a brief recovery period in the PACU. She was started on a liquid diet on POD1 and the Granado was removed later that day. She was started on GISoft diet on POD2 and since she was tolerating a diet and PO pain medication and had return of bowel function she was deemed fit for discharge on POD 2. Transitions of Care Critical Issues: IMAGING FOLLOW-UP: None LABS AND PROCEDURES PENDING AT DISCHARGE: No pending results. PATIENT CONDITION AT DISCHARGE: Stable DISCHARGE DISPOSITION: Home/Self Care Discharge Physical Exam: VITAL SIGNS: BP 120/57 Pulse 63 Temp 36.9 ?C (98.4 ?F) (Oral) Resp 16 Ht 162.6 cm (5' 4 ) Wt 110.7 kg (244 lb) SpO2 93% BMI 41.88 kg/m? GENERAL: Alert, no distress, cooperative SKIN: Skin color, texture, turgor normal. No rashes or lesions. ABDOMEN: Soft, minimally tender, incisions c/d/i WOUND/SURGICAL SITE CARE: None DIET: Resume pre-hospital diet ACTIVITY: Resume pre-hospital activity ALLERGIES No Known Allergies DISCHARGE MEDICATION: Current Discharge Medication List CONTINUE these medications which have NOT CHANGED neomycin 1,000 mg Take 1,000 mg by mouth as directed. Take 2 tablets at 6 pm, again at 7 pm and at 11 pm the evening prior to surgery Qty: 6 tablet Refills: 0 Associated Diagnoses:Polyp of colon, unspecified part of colon, unspecified type metroNIDAZOLE (FLAGYL) 500 mg Take 500 mg by mouth as directed. Take 1 tablet at 6 pm, another at 7 pm and again at 11 pm, the evening prior to surgery Qty: 3 tablet Refills: 0 Comments: Pre Op for surgery Associated Diagnoses:Polyp of colon, unspecified part of colon, unspecified type citalopram (CeleXA) 20 mg Take 20 mg by mouth once daily. fluocinonide (LIDEX) 1 application Apply 1 application to affected area as needed. liothyronine (CYTOMEL) 10 mcg Take 10 mcg by mouth once daily. diclofenac (EC) (VOLTAREN) 75 mg Take 75 mg by mouth twice daily. fenofibrate nanocrystallized (TRICOR) 145 mg Take 145 mg by mouth once daily. multivit with minerals/lutein (MULTIVITAMIN 50 PLUS ORAL) 1 tablet Take 1 tablet by mouth once daily. FUTURE APPOINTMENTS: No future appointments. The patient's risk for 30-day readmission is determined using the following contributing factors: Pt variables contributing to increased readmission risk: 13 Most Recent BUN Result 13 Active Medication Orders 9.3 First Resulted Calcium During Admission 1 Insurance - Private Coverage 1 Active Anticoagulant TIME OF CARE: Discharge Management: I personally spent less than 30 minutes involved in the discharge management of this patient. SIGNATURE: Joseluis Colvin MD DATE: June 26, 2021 TIME: 8:36 AM Naa Garcia MD 10:04 PM Normal [facility] NURSING PROGon 06-26-2021 NURSING PROG HNO ID: [id number] Author: Mai Stevens RN Service: ? Author Type: Registered Nurse Type: Nursing Progress Note Filed: 06/26/2021 5:48 PM Note Text: Nursing Progress Note Patient Name: Emily Haywood Patient Location: -[id number] Daily Note: 0800: Patient awake in bed AAND0 x3. Lungs clear and on RA. Bowel sounds present, Abdomen slightly tender to touch. Denies any NANDV. Tolerating liquid diet. Patient is passing gas and having BM's. Incisions clean and intact. ODETTE draining serosang. 0800: Dr. Hall present at bedside to discuss plan of care. GI soft diet placed at this time. Order for Lovenox teaching. 0900: Lovenox teaching done at this time Instructed on how to administer injections. Handouts given with instructions. Patient has no further questions at this time. 1430: page sent to surgical team. Patient wondering if she will be discharged today. Patients has over an hour drive. 1730: Resident at bedside to remove drain. Patient okay for discharge. This note was completed by: Mai Herndon [facility] NURSING PROG HNO ID: [id number] Author: Nely Anne RN Service: ? Author Type: Registered Nurse Type: Nursing Progress Note Filed: 06/26/2021 1:16 AM Note Text: Nursing Progress Note Patient Name: Emily Haywood Patient Location: [place] [address] Daily Note:(late entry for 2199) Pt aANDox3 upon assessment. Lungs clear on room air. Bowel sounds present. Pt states she is passing flatus. Lap sites and transverse incision brissa with glue. Pt tolerating limited clears diet, no c/o n/v. Granado draining yellow,clear. PAS stockings on. 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 Safety maintained. Will continue to monitor at this time. 2215: Pt had a BM in the toilet that was mixed with urine. This RN checked pt's granado and it is still intact and still in pt. Text-paged SROC making aware. 2325: Spoke with SROC who advised to monitor pt's granado for now. 0100: Removed pt's granado per order. Hats put in toilet to measure pt's urine output. This note was completed by: Nely Herndon [facility] Basic Metabolic Panlon 06-25 Anion gap [Moles/Vol] 8 mmol/L Low 9-18 [facility] Comment on above: Performed By: #### B LEONCIO, CBCDIF ####[place] [id number] Calcium [Mass/Vol] 9.3 mg/dL Normal 8.5-10.5 [facility] Comment on above: Performed By: #### B LEONCIO, CBCDIF ####[place] [phone] Chloride [Moles/Vol] 108 mmol/L Normal 98-110 [facility] Comment on above: Performed By: #### Rosy FANG, CBCDIF ####[place] [phone] CO2 [Moles/Vol] 25 mmol/L Normal 23-32 [facility] Comment on above: Performed By: #### B LEONCIO, CBCDIF ####[place] [phone] Creatinine [Mass/Vol] 0.52 mg/dL Low 0.70-1.40 [facility] Comment on above: Performed By: #### Rosy FANG, CBCDIF ####[place] [id number] eGFR- Amer. >60 Normal >60 [facility] Comment on above: Performed By: #### Rosy FANG, CBCDIF ####[place] [id number] eGFR-All Other Races >60 Normal >60 [facility] Comment on above: Result Comment: eGFR (Estimated GFR) Units of measure: mL/min/1.73 meters squared eGFR is derived from the reexpressed MDRD Study equation using the following parameters: serum creatinine, age, gender and race. The creatinine assay has been calibrated to be traceable to IDMS. An eGFR <60 mL/min/1.73m2 for >3 months is consistent with chronic kidney disease. Refer to KDOQI guidelines for clinical interpretation. In patients with unstable renal function, e.g. those with acute kidney injury, the eGFR may not accurately reflect actual GFR. Performed By: #### B MP, CBCDIF ####[place] [phone] Glucose [Mass/Vol] 104 mg/dL High 65-100 [facility] Comment on above: Performed By: #### B MP, CBCDIF ####[place] [phone] Potassium [Moles/Vol] 4.3 mmol/L Normal 3.5-5.0 [facility] Comment on above: Performed By: #### B MP, CBCDIF ####[place] [phone] Sodium [Moles/Vol] 141 mmol/L Normal 132-148 [facility] Comment on above: Performed By: #### B MP, CBCDIF ####[place] [phone] Urea nitrogen [Mass/Vol] 11 mg/dL Normal 8-25 [facility] Comment on above: Performed By: #### B MP, CBCDIF ####[facility] [place] [phone] CASE MGT INIT [facility] 2020 CASE MGT INIT [facility] HNO ID: [id number] Author: RAGHAV Hendricks Service: ? 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 Last discharge within 30 days: No Advance Directive: Current Advance Directive: Health Care Power of Manager Servicing In Chart: Yes Up To Date and Valid: Yes Health LiteracyHow often do you need to have someone help you when you read instructions, pamphlets, or other written material from your doctor or pharmacy? : 1 - Never How confident are you filling out medical forms by yourself?: 1 - Extremely Baseline Mental Status Prior to this Illness what was the patient's Baseline Mental Status?: Alert AND Oriented Prior to this illness, has anyone described the patient having any of the following behaviors?: Not Applicable Relationship of the informant to the patient:: Self Functional Status: Independent Does Patient Currently Receive Any Community Services or Home Care?: None Equipment Prior to Admission: None Has the Patient Been in a Usp Facility in the Past 30 days?: No SOCIAL: Living Arrangements: Home Lives With: Spouse Financial Resources: Employed Primary Contact: Extended Emergency Contact Information Primary Emergency Contact: Gerry Haywood [place] [employer] Relation: Spouse Supportive Patient Contact:: Yes Caregiver AssessmentCaregiver is ready, willing and able to meet the patient's needs as recommended by the inter-professional team:: No Caregiver needed Does the patient have an acute stroke diagnosis, or has the patient had a stroke during this admission?: No Patient's transition needs and plan for meeting these needs: anticipate home with no skilled services Patient's perception of need for this admission: s/p colectomy Medication Adherance I am convinced of the importance of my prescription medication: 0 - Agree Completely I worry that my prescription medication will do more harm than good to me : 0 - Disagree Completely I feel financially burdened by my [id number] expenses for my prescription medication:: 0 - Disagree Completely Risk Score: 0 Are you interested in bedside delivery of your medications? No Is Patient Psychosocially Complex?: No ASSESSMENT AND PLAN: Medical Needs: Medical Needs: Two or more chronic diseases Psychosocial Needs: Psychosocial Needs: None FREEDOM OF CHOICE EXPLAINED: [place] of Choice Given: No Reason Not Given: No placements necessary POTENTIAL TRANSITION PLANS Home;To Be Determined SW met with patient at bedside to complete assessments. S/p colectomy 06/24. From home with spouse. Employed. Independent w/ADLs. Still drives. No current active services in home or DME use. Will have transportation home at discharge. Anticipate home with no needs. SIGNATURE: RAGHAV Wilder PATIENT NAME: Emily Haywood DATE: June 25, 2021 TIME: 11:40 AM PAGER/CONTACT #: [phone] Normal [facility] CBC and Differentialon 06-25 Abs Baso <0.03 Normal <0.11 [facility] Comment on above: Performed By: #### Rosy FANG CBCDIF ####[place] [address] Abs Eosin <0.03 Normal <0.46 [facility] Comment on above: Performed By: #### Rosy FANG CBCDIF ####[address] Abs Braxton 1.10 k/uL High <0.87 [facility] Comment on above: Performed By: #### Rosy FANG CBCDIF ####[address] Abs Neut 8.30 k/uL High 1.45-7.50 [facility] Comment on above: Performed By: #### Rosy FANG CBCDIF ####[place] [address] Absolute nRBC <0.01 Normal <0.01 [facility] Comment on above: Performed By: #### Rosy FANG CBCDIF ####[address] Basophils/100 WBC (Bld) 0.1 % [facility] Comment on above: Performed By: #### Rosy FANG CBCDIF ####[address] DTYPE Auto Diff Normal [facility] Comment on above: Performed By: #### B MP, CBCDIF ####[place] [phone] Eosinophils/100 WBC (Bld) 0.0 % Normal [facility] Comment on above: Performed By: #### B MP, CBCDIF ####[place] [phone] Erythrocyte distribution width (RBC) [Ratio] 12.2 % Normal 11.5-15.0 [facility] Comment on above: Performed By: #### B MP, CBCDIF ####[place] [phone] Hematocrit (Bld) [Volume fraction] 35.8 % Low 36.0-46.0 [facility] Comment on above: Performed By: #### B MP, CBCDIF ####[place] [phone] Hemoglobin (Bld) [Mass/Vol] 11.5 g/dL Normal 11.5-15.5 [facility] Comment on above: Performed By: #### B MP, CBCDIF ####[place] [phone] Lymphocytes (Bld) [#/Vol] 0.86 10*3/uL Low 1.00-4.00 [facility] Comment on above: Performed By: #### B MP, CBCDIF ####[place] [phone] Lymphocytes/100 WBC (Bld) 8.4 % Normal [facility] Comment on above: Performed By: #### B MP, CBCDIF ####[place] [phone] MCH 29.0 pG Normal 26.0-34.0 [facility] Comment on above: Performed By: #### B MP, CBCDIF ####[place] [phone] MCHC (RBC) [Mass/Vol] 32.1 g/dL Normal 30.5-36.0 [facility] Comment on above: Performed By: #### B MP, CBCDIF ####[place] [phone] MCV (RBC) [Entitic vol] 90.4 fL Normal 80.0-100.0 [facility] Comment on above: Performed By: #### B MP, CBCDIF ####[phone] Monocytes/100 WBC (Bld) 10.7 % Normal [facility] Comment on above: Performed By: #### B MP, CBCDIF ####[phone] Neutrophils/100 WBC (Bld) 80.8 % Normal [facility] Comment on above: Performed By: #### B MP, CBCDIF ####[place] [phone] NRBCs 0.0 /100 WBC Normal 0 [facility] Comment on above: Performed By: #### B MP, CBCDIF ####[phone] Platelet mean volume (Bld) [Entitic vol] 13.4 fL High 9.0-12.7 [facility] Comment on above: Performed By: #### B MP, CBCDIF ####[place] [phone] Platelets (Bld) [#/Vol] 144 10*3/uL Low 150-400 [facility] Comment on above: Performed By: #### B MP, CBCDIF ####[place] [phone] RBC (Bld) [#/Vol] 3.96 10*6/uL Normal 3.90-5.20 [facility] Comment on above: Performed By: #### B MP, CBCDIF ####[place] [phone] WBC (Bld) [#/Vol] 10.27 10*3/uL Normal 3.70-11.00 [facility] Comment on above: Performed By: #### B LEONCIO, CBCDIF ####[facility] [place], [place] [phone] NURSING PROGon 06-25-2021 NURSING PROG HNO ID: [id number] Author: Fatoumata Goyal RN Service: ? Author Type: Registered Nurse Type: Nursing Progress Note Filed: 06/25/2021 4:41 AM Note Text: Nursing Progress Note Patient Name: Emily Haywood [facility] [place] [address] Transfer Note: 2020 (late entry): Patient transferred into room/unit ST4I-55 in stable condition. Actions taken: No futher actions taken at this time. Will continue to monitor and check with patient. Pt alert and oriented, weaned off O2, satting 96% on RA. Bowel sounds hypoactive x 4 quadrants. Dilaudid HIGH LIFT DRIVER pump at 0.2 6 10. Transverse incision and laparoscopic sites AUTOMOTIVE PARTS COORDINATOR with glue, no drainage. Granado draining clear yellow urine. ODETTE on the Right draining bloody. 0441: Text paged surgery [id number] Emily Calles. Pt automatic BP 95/49 and manual is 99/39. Just wanted to make aware. Thanks. Fatoumata [phone] This note was completed by: Fatoumata Goyal [facility] ANES POSTPROC EVALon 021 ANES POSTPROC EVAL HNO ID: [id number] Author: Chaz Mckeon MD Service: Anesthesiology Author Type: Anesthesiologist Type: Anesthesia Postprocedure Evaluation Filed: 06/24/2021 7:03 PM Note Text: POST ANESTHESIA EVALUATION NOTE : 1960 Procedure Summary Date: 06/24/21 Room / Location: [facility] OR07 / [facility] OR Anesthesia Start: 1325 Anesthesia Stop: 175 Procedure: LAPAROSCOPIC COLECTOMY SIGMOID COLON W/ COLORECTAL ANASTOMOSIS (Left Abdomen) Diagnosis: Mass of colon (Mass of colon [K63.89]) Surgeons: Vinay Hall MD Responsible Provider: Chaz Mckeon MD Anesthesia Type: general ASA Status: 3 Anesthesia Type: general Last vitals Vitals Value Taken Time BP 102/70 06/24/21 1900 Temp 36 ?C (96.8 ?F) 06/24/21 1754 Pulse 76 06/24/21 1903 Resp 13 06/24/21 1903 SpO2 95 % 06/24/211902 Vitals shown include unvalidated device data. Post Anesthesia Patient Status Patient Evaluation: PACU. PACU/ICU Patient Condition: stable. Anticipated Disposition: inpatient floor planned admission. Neurological Status: aware and responsive. Pulmonary Status: breathing comfortably on room air Airway Control: returned to baseline unsupported. Cardiovascular Status: stable. Pain Management: clinically adequate - multimodal analgesia pain management approach Postoperative Hydration: acceptable. Intraoperative Events: no significant anesthesia events Post Operative Nausea/Vomiting Status: no significant post operative nausea or vomiting Anesthetic Observations: Recommendation: continue current plan of care. No complications documented. SIGNATURE: Chaz Mckeon MD PATIENT NAME: Emily Haywood DATE: June 24, 2021 TIME: 7:03 PM CSN: [id number] [facility] ANES PRE-OPon 06-24-2021 ANES PRE-OP HNO ID: [id number] Author: Fidel Grant DO Service: Anesthesiology Author Type: Anesthesiologist Type: Anesthesia Preprocedure Evaluation Filed: 06/24/2021 12:26 PM Note Text: ANESTHESIOLOGY DAY OF SURGERY NOTE : 1960 Procedure(s) (LRB): LAPAROSCOPIC COLECTOMY SIGMOID COLON W/ COLORECTAL ANASTOMOSIS (Left) Surgeon(s): Vinay Hall MD Estimated body mass index is 41.88 kg/m? as calculated from the following: Height as of 06/17/21: 162.6 cm (5' 4 ). Weight as of 06/17/21: 110.7 kg (244 lb). Most recent hematocrit and potassium results: Hematocrit 42.6 06/02/2021 Potassium 4.4 06/02/2021 Relevant Problems ENDO (+) Acquired hypothyroidism I - PHYSICAL EVALUATION AIRWAY Patient intubated: No. Tracheostomy tube not present Mallampati: II. TM distance: >3 FB. Neck ROM: full ROM without neurological symptoms. Mouth opening: adequate. Short neck: no. Thick neck: no DENTAL Dental findings: teeth intact. Additional exam findings: no II - ANESTHESIA PLAN ASA Score: 3 Anesthetic Plan: general Airway type: ETT The patient is not a current smoker. NPO Status: adequate Monitoring plan: standard ASA. Postoperative analgesic plan: multimodal analgesia. Anesthetic Risks, Benefits, Alternatives, Personnel Discussed. Consent obtained from: patient.Patient / Surrogate agrees to blood products: Yes Significant changes in the patient condition since the History and Physical, not otherwise documented in primary service progress note: no. Potential Anesthesia issues that may suggest increased risk of complications or contraindication to planned procedure: none. No vitals data found for the desired time range. No current facility-administered medications on file as of 06/24/2021. Outpatient Medications as of 06/24/2021 Medication Sig - citalopram (CELEXA) 20 mg tablet Take 20 mg by mouth once daily. - liothyronine (CYTOMEL) 5 mcg tablet Take 10 mcg by mouth once daily. - diclofenac, EC, (VOLTAREN) 75 mg EC tablet Take 75 mg by mouth twice daily. - fenofibrate nanocrystallized (TRICOR) 145 mg tablet Take 145 mg by mouth once daily. - multivit with minerals/lutein (MULTIVITAMIN 50 PLUS ORAL) Take 1 tablet by mouth once daily. - fluocinonide (LIDEX) 0.05 % cream Apply 1 application to affected area as needed. I have interviewed and examined the patient. I have reviewed the medical record and/or the pre-anesthesia evaluation, pertinent labs, and test results. This contains updated information obtained within 48 hours of Surgery/Procedure. SIGNATURE: Fidel Grant DO PATIENT NAME: Emily Haywood DATE: June 24, 2021 TIME: 12:25 PM CSN: [id number] [facility] BRIEF OP NOTon 06-24-2021 BRIEF OP NOT HNO ID: [id number] Author: Naa Garcia MD Service: Colorectal Author Type: Resident Type: Brief Op Note Filed: 06/24/2021 5:48 PM Note Text: BRIEF OPERATIVE NOTE - COLORECTAL SURGERY Log ID: [id number] Surgery/Procedure Date: 06/24/2021 Incision/Procedure Start Time: 2:17 PM Incision Close/Procedure End Time: 5:37 PM Surgeon(s) and Nautical Instrument Mechanic(s): Surgeon(s) and Role: * Vinay Hall MD - Primary * Naa Garcia MD - Resident - Assisting No Additional Staff Procedures and Anesthesia: Procedure(s) and Anesthesia Type: Laparoscopic, hand-assisted low anterior resection, omental pedicle flap, mobilization of splenic flexure, flexible sigmoidoscopy Stoma Type: N/A Findings: Tattoo of sigmoid polyp inferior to the peritoneal reflection. Hemostatic anastomosis, negative leak test. Estimated Blood Loss: 50 ml Specimens: Sigmoid colon and rectum, distal anastomotic donut Diagnosis Code(s): Pre-Op Diagnosis Codes: * Mass of colon [K63.89] Postop Diagnosis: Sigmoid mass Drains: Yes, 19fr round adriano in pelvis Wound Classification: Class 3, operative wound contaminated with gross spillage from the gastrointestinal tract Complications: None SIGNATURE: Naa Garcia MD PATIENT NAME: Emily Haywood DATE: June 24, 2021 TIME: 5:43 PM [facility] HISTORY PHYSICALon HISTORY PHYSICAL HNO ID: [id number] Author: Naa Garcia MD Service: Colorectal Author Type: Resident Type: HANDP Filed: 06/24/2021 12:47 PM Note Text: Attestation signed by Vinay Hall MD at 06/24/2021 1:33 PM Attending Note I evaluated the patient and personally participated in the sinclair components. I agree with the resident's findings and plan as documented and have discussed the case and management of the patient's care with the resident. Signature: Vinay Hall MD Date: 06/24/2021 Time: 1:33 PM UPDATED HISTORY AND PHYSICAL EXAMINATION SERVICE DATE: 06/24/2021 SERVICE TIME: 12:44 PM PHYSICAL EXAM MUST BE COMPLETED ON ADMISSION The History and Physical (completed in the past 30 days) has been reviewed and the patient has been examined. The contents accurately reflect the patient's condition with the following additions or revisions since the HANDP was completed. Examination indicates no changes. Denies fevers, chills, chest pain, difficulty breathing, nausea, vomiting, diarrhea, painful urination. Card: Regular rate and rhythm, no murmurs, rubs or gallops. Normal S1/S2. Resp: Breathing comfortably on room air, speaking in full sentences, clear to auscultation bilaterally. This HANDP can be found in the Electronic Medical Record dated 06/02/2021. SIGNATURE: Naa Garcia MD PATIENT NAME: Emily Haywood DATE: June 24, 2021 TIME: 12:44 PM Normal [facility] NURSING PROGon 06-24-2021 NURSING PROG HNO ID: [id number] Author: Silva Hernandez RN Service: Nursing Author Type: Registered Nurse Type: Nursing Progress Note Filed: 06/24/2021 12:20 PM Note Text: PATIENT EDUCATION TOPIC: PROCEDURE / SURGERY: Pre-op Teaching: Surgical Safety Principles PATIENT NAME: Emily Haywood PATIENT LOCATION: [facility] OR POOL/[facility] OR POOL READINESS TO LEARN COGNITIVE ABILITY: Alert and oriented MOTIVATION TO LEARN: Interested FAMILY SUPPORT: Unable to assess - Family not present INSTRUCTION PROVIDED TO: Patient PATIENT LEARNS BEST BY: Multiple Methods FACTORS AFFECTING LEARNING: None PHYSICAL LIMITATIONS AFFECTING LEARNING: None LEARNING RESPONSE DIAGNOSIS: ADULT: Well Adult PATIENT/FAMILY RESPONSE: Verbalizes understanding of: PRE-OPERATIVE INSTRUCTIONS-Correct action to take to follow pre-operative instructions Information received as demonstrated by interest and questions METHOD OF INSTRUCTION: Individual instruction Verbal instruction FOLLOW-UP PLAN: Complete - No need for follow-up INSTRUCTIONAL AIDS USED: NA SUPPLEMENTAL MATERIAL PROVIDED TO PATIENT: None REFERRAL (RECOMMENDATION): None Electronically Signed By: Silva Hernandez [facility] OPERATIVE NOon 06-24-2021 OPERATIVE NO HNO ID: [id number] Author: Vinay Hall MD Service: Colorectal Author Type: Physician Type: Operative Report Filed: 06/24/2021 5:45 PM Note Text: COLON AND RECTAL SURGERY OPERATIVE REPORT PATIENT NAME: Emily Haywood ADMISSION DATE: 06/24/2021 LOG ID: [id number] SURGERY/PROCEDURE DATE: 06/24/2021 INCISION/PROCEDURE START TIME: 2:17 PM INCISION CLOSE/PROCEDURE END TIME: 5:37 PM AGE: [age] year old SEX: female SURGEON(S)/PROCEDURALIS T(S) AND SINGLE FOLD MACHINE OPERATOR(S): Surgeon(s) and Role: * Vinay Hall MD - Primary * Naa Garcia MD - Resident - Assisting No Additional Staff ANESTHESIA: General PREOPERATIVE DIAGNOSIS (ES): Upper rectal polyp POSTOPERATIVE DIAGNOSIS (ES): Upper rectal polyp NAME OF OPERATION: Laparoscopic Proctosigmoidectomy (Low Anterior Resection), Laparoscopic Mobilization of Splenic Flexure, Flexible Sigmoidoscopy, Laparoscopic Omental Pedicle Flap INDICATIONS FOR PROCEDURE: Upper rectal polyp OPERATIVE FINDINGS: Upper rectal tattoo just above peritoneal reflection DESCRIPTION OF PROCEDURE: The patient was brought to the operating room, placed under general anesthesia in the lithotomy position. The abdomen was prepped and draped in normal sterile fashion. The patient received appropriate preop antibiotics and DVT prophylaxis. A surgical time-out was performed. The abdomen was entered through a Pfannenstiel incision. The fascia was incised transversely and the muscle was divided in the midline. A 10 mm supraumbilical trocar was then placed directly onto a hand. The GelPort was placed through the Pfannenstiel incision and the abdomen was insufflated to 15 mmHg. The liver was inspected and there was no evidence of metastatic disease. 5 mm trocars were placed in the left lower quadrant and right mid abdomen. The colonic mobilization was then commenced by incising the right aspect of the rectosigmoid mesentery at the level of the sacral promontory. The retroperitoneal fusion plane was entered and dissection was carried out in this plane laterally. The left ureter was identified and swept out of harm's way. The inferior mesenteric artery was then isolated and divided at its origin with the LigaSure. Prior to dividing the vessel, the left ureter was confirmed to be safe from harm. The inferior mesenteric vein was then dissected away from the 4th portion of the duodenum, and divided at the inferior border of the pancreas with the LigaSure. The remainder of the retroperitoneal dissection was continued laterally out beyond the colon in a cephalad direction above the apex of the left kidney. The lateral attachments of the sigmoid colon and descending colon were divided. The splenic flexure was mobilized. The lesser sac was entered. The distal omental colic attachments were divided to the mid transverse colon. The remainder of the retroperitoneal attachments were divided until the colon was mobilized sufficiently to bring the splenic flexure of the colon down into the pelvis. The retroperitoneum and vascular pedicles were then inspected. Hemostasis was obtained. The GelPort was removed and the abdomen was desufflated. The specimen was delivered out through the GelPort incision. A point was chosen in the distal descending colon as the proximal margin of the specimen. The mesentery was divided between clamps with 0-Vicryl ties. Prior to ligating the marginal vessel, it was flashed and there was pulsatile arterial inflow. The colon was divided and the 28 EEA anvil was secured within the colon using a 2-0 PDS pursestring suture. The rectum was then mobilized. The rectal mobilization was commenced posteriorly in the mesorectal fascia plane, down to and beyond the curve of the sacrum. The lateral attachments of the rectum were then divided. The middle rectal vessels and the lateral ligaments were divided bilaterally. Anteriorly, dissection was taken down to the peritoneal reflection as the tattoo was just above the peritoneal reflection. Once the rectum had been mobilized, the green load TA stapler was then passed across the rectum and it was divided. The specimen was passed off the field. The EEA stapler was passed transanally. The stapler spike was delivered out through the corner of the transverse staple line. The anvil was secured to the stapler. The stapler was closed under direct visualization to ensure that there was no inclusion of any extraneous tissues. The mesentery of the colon was confirmed to be straight with no twists. There was no tension on the mesentery. The stapler was fired. The donuts were inspected and were intact. With saline in the abdomen, the anastomosis was air-leak tested with vigorous rectal insufflation via flexible sigmoidoscopy and there was no evidence of leak. The anastomosis was visualized with flexible sigmoidoscopy and appeared healthy and patent. A 19 Adriano drain was placed in the pelvis. The abdomen was irrig (more content not included)... Normal [facility] SURGICAL PATHOLOGYon 021 SURGICAL PATHOLOGY Specimen originated from [facility] Specimen #: [id number] Submitting Physician: VINAY HALL MD FINAL DIAGNOSIS 1. Sigmoid colon and rectum, resection (A) - Tubulovillous adenoma with focal high-grade dysplasia (see comment). - Diverticulosis. - Twelve lymph nodes, negative for malignancy (0/12). 2. Distal donut, excision (B) - Segment of colon with no diagnostic abnormality. JEL/kll 06/29/2021 COMMENT 1. There is no evidence of invasive adenocarcinoma. The margins are negative for dysplasia. Nelson Krishnamurthy M.D. (Electronic Signature) SPECIMEN SUBMITTED A: SIGMOID COLON AND RECTUM WITH GROSS DISTAL MARGIN B: DISTAL DONUT CLINICAL DATA MASS OF COLON; LAPAROSCOPIC LOW ANTERIOR RESECTION INTRAOPERATIVE CONSULT DIAGNOSIS Part A - Received is a closed segment of bowel measuring 40 cm. There is a rossi mass measuring 4 x 3.4 cm that is 2 cm away from the distal margin. Gross examination only. (Oshilaja) Intraoperative diagnosis performed at [facility], [address], [place] [address] GROSS DESCRIPTION A. Received fresh designated sigmoid colon and rectum with gross distal margin is a segment of large bowel, excised at or above the anterior peritoneal reflection, measuring 40 cm in length. It ranges from 2 to 4.5 cm in circumference. The serosal surface is pink-rossi and smooth with an attached complete posterior mesorectum. The bowel was previously opened in the OR to reveal a rossi exophytic and polypoid lesion that measures 4 x 3.4 x 1.7 cm. The lesion is located entirely above the anterior peritoneal reflection, on the anterior surface, 34 cm from the proximal end, 2 cm from the distal margin, 10 cm from the mesenteric margin, and 5.5 cm from the circumferential margin. The bowel does not extend beyond the muscularis propria. The remaining bowel mucosa is slightly thickened with a wall that measures 0.8 cm. The bowel does lie flat. Mobile [employer] Repairer sections are submitted as follows: A1 proximal margin perpendicular (inked orange), A2 distal margin perpendicular (inked blue), A3-A11 entire lesion submitted in sequential order from proximal to distal, A12 mesenteric margin perpendicular (inked black), A13 circumferential margin perpendicular (inked black), A14 thickened mucosa, A15 four intact possible lymph nodes, A16 four intact possible lymph nodes. GERMÁN/lyla 06/27/2021 B. Received in formalin designated distal donut is a donut that measures 1.5 cm in length x 1.5 cm in diameter. The mucosa is hyperemic. The wall thickness is 0.2 cm. Mobile [employer] Rep[employer]r sections are submitted in one cassette. Deanna 06/27/2021 Gross examination performed at [facility], [address] [place] [address] Date of Report: 06/29/2021 Date of Procedure: 06/24/2021 Date of Receipt: 06/24/2021 Submitted by: VINAY HALL MD Location: [facility] Diagnostic interpretation performed at [facility], [address] [place] [address].CLIA Number: [id number] [facility] Frank 06-23-2021 CNPN Telephone ([facility]) EMILY CALLES ([id number]) 1960 F Date Time Provider Department 06/23/21 VINAY HALL [facility] During your visit today, we recorded the following information about you: Melissa Kimball Pss 06/23/2021 8:52 AM Signed Patient called regarding FMLA return call to [phone] Ivania Slater MA 06/23/2021 9:08 AM Signed Called the patient. Patient wanted to know if FMLA paperwork from [employer] was completed yet and faxed because she is calling [employer] and sending emails and has not received a call or email advising if they received the paperwork. I advised the patient that I completed the paperwork and faxed it to [employer] [phone], 17 pages and confirmation received. Patient verbally understood. If any further problems or questions advised that patient or her HR department can call me. JUVENAL Carrillo [facility] 06/29/2021 11:42 AM Signed Received voicemail from patient. Anamika, at [employer], called patient and needs more information regarding her time off in order to pay her. Anamika can be reached at [phone]. Please call Lalitha after with an update, . Chanel Richard [facility] Ivania Slater MA 06/29/2021 12:11 PM Signed Called Anamika at [employer]. Left a voicemail to return call. Ivania Slater MA 06/29/2021 1:27 PM Signed Return to work date corrected to reflect 08/05/21.Faxed correction to [employer] [phone]. Confirmation received. Scanned to patient chart. Called Anamika at [facility] left a message on her voicemail advising of the above. Called patient Lalitha and left a message on her voicemail advising of the above. Ivania Slater MA Allergies As of Date: 06/23/2021 (No Known Allergies) Date Reviewed: 06/17/2021 Reviewed by: Dawna Leyva APRN.LOSS CLAIM CLERK - Fully Assessed Reason for Visit: FMLA Paperwork [4185] Prescriptions as of 06/29/2021 - enoxaparin (LOVENOX) 40 mg/0.4 mL Inject 0.4 mL subcutaneously once daily for 21 days. - oxyCODONE IR (ROXICODONE) 5 mg immediate release tablet Take 1 tablet by mouth every 6 hours as needed for pain. - neomycin 500 mg tablet Take 2 tablets by mouth as directed. Take 2 tablets at 6 pm, again at 7 pm and at 11 pm the evening prior to surgery - metroNIDAZOLE (FLAGYL) 500 mg tablet Take 1 tablet by mouth as directed. Take 1 tablet at 6 pm, another at 7 pm and again at 11 pm, the evening prior to surgery - citalopram (CELEXA) 20 mg tablet Take 20 mg by mouth once daily. - fluocinonide (LIDEX) 0.05 % cream Apply 1 application to affected area as needed. - liothyronine (CYTOMEL) 5 mcg tablet Take 10 mcg by mouth once daily. - diclofenac, EC, (VOLTAREN) 75 mg EC tablet Take 75 mg by mouth twice daily. - fenofibrate nanocrystallized (TRICOR) 145 mg tablet Take 145 mg by mouth once daily. - multivit with minerals/lutein (MULTIVITAMIN 50 PLUS ORAL) Take 1 tablet by mouth once daily. Problem List As Of Date 06/23/2021 Noted Resolved Colonic mass [K63.89] 06/09/2021 Mixed hyperlipidemia [E78.2] 06/09/2021 Depression [F32.9] 06/09/2021 Diverticula of colon [K57.30] 06/09/2021 IBS (irritable bowel syndrome) [K58.9] Acquired hypothyroidism [E03.9] Morbidly obese (HCC) [E66.01] Encounter Status:Closed by IVANIA SLATER on 06/23/21 Normal [facility] Self Check COVIDon 1 SARS-CoV-2 (COVID-19) RNA MICHELL+probe Ql (Unsp spec) UPPER RESPIRATORY TRACT SWAB Normal [facility] Comment on above: Performed By: #### P REALB #### [address] [place], [place] [address] SARS-CoV-2 (COVID-19) RNA MICHELL+probe Ql (Unsp spec) Negative for COVID19 (SARS CoV2) by RT-PCR or equivalent method. Normal Negative for COVID19 (SARS CoV2) by RT-PCR or equivalent method. [facility] Comment on above: Result Comment: This test was developed and its performance characteristics determined by [facility] [place]. This test has been authorized by FDA under an Emergency Use Authorization (EUA). This test has been validated in accordance with the FDA's Guidance Document Policy for Diagnostics Testing in Laboratories Certified to Perform High Complexity Testing under CLIA prior to Emergency use Authorization for Coronavirus Disease 2019 during the Public Health Emergency issued on January 03, 2020. Test performed by [facility], [facility] [place], [address] [place] [address]. Performed By: #### P REALB #### [place] [address] Confirm Blood Typeon 021 ABO/RH(D) Positive Normal [facility] Comment on above: Performed By: #### C ONABO ####[facility] [place], [place] [phone] HISTORY PHYSICALon HISTORY PHYSICAL HNO ID: [id number] Author: Dawna Leyva APRN.LOSS CLAIM CLERK Service: ? Author Type: Nurse Practitioner Type: HANDP Filed: 06/17/2021 9:12 AM Note Text: HISTORY AND PHYSICAL EXAMINATION SERVICE DATE: 06/17/2021 SERVICE TIME: 8:39 AM PRIMARY CARE PHYSICIAN: Mikel Ruiz MD REASON FOR VISIT: Emily Haywood is a 60 year old female who is scheduled for LAPAROSCOPIC COLECTOMY SIGMOID COLON W/ COLORECTAL ANASTOMOSIS at the request of Dr. Vinay Hall for consultation. My final recommendation will be communicated back to the requesting physician by way of shared medical record or letter. Subjective The patient has the following: ACTIVE PROBLEM LIST Colonic Mass Mixed Hyperlipidemia Depression Diverticula of Colon Ibs (Irritable Bowel Syndrome) Acquired Hypothyroidism Morbidly Obese (Hcc) CHIEF COMPLAINT: Pre-Op Exam HPI: 60 year old female presents with colon mass. Patient started experiencing bright red rectal bleeding about 9 months ago. Her last colonoscopy was about 12 years ago. The most recent colonoscopy done showed a polyp, biopsy was positive for villous adenoma. She has started experiencing a lot of nausea, usually present about an hour after eating. This has been apparent for the past couple of months. She has some fullness/GERD symptoms which occur occasionally; no current medication for symptom management. She has an occasional feeling that her throat is closing up when trying to drink while eating. She has been diagnosed with IBS and diverticulosis. She does notice some urgency with bowel movements. She denies family history of colon cancer, abdominal pain, constipation, diarrhea, vomiting or liver disease. REVIEW OF SYSTEMS: General: No weight loss, malaise or fevers. Neurological: Positive for: impaired sensorium (Carpal tunnel L hand). Negative for: headaches, multiple sclerosis, Parkinson's disease, seizures, TIA and strokes. Respiratory: No history of current cough or dyspnea, or pneumonia in the past 6 weeks. No history of respiratory/pulmonary symptoms or problems. Cardiovascular: Positive for: hyperlipidemia (on Rx) Negative for: arrhythmia, atrial fibrillation, CAD, chest pain, CHF, DVT/PE, hypertension, recent SD and murmur/valvular heart disease. GI: SEE HPI : Positive for: nocturia >1 time per night. Negative for: dysuria, frequent urination, hematuria, nephrolithiasis, renal failure, urgency and urinary tract infection. JEWELSMITH: Negative for abnormal vaginal bleeding, abnormal vaginal discharge. Endocrine: Positive for: hypothyroidism (Recently started on Rx). Negative for: diabetes mellitus and hyperthyroidism. Hematology: No history of bleeding or clotting disorder. Patient is not taking anti-coagulation or platelet medications. No history of hematological symptoms or problems. Oncology: No history of CA metastasis, chemo within 30 days, or radiotherapy within 90 days. No history of oncological symptoms or problems. Psych: Positive for: depression (Stable on Rx). Negative for: anxiety. Musculoskeletal: Positive for: joint pain (Knees especially, Generalized). Negative for: swelling. Skin: Chronic skin issues comment: Lichen Keratosis - No open or draining lesions. PAST MEDICAL HISTORY Diagnosis Date - Acquired hypothyroidism - Generalized anxiety disorder - IBS (irritable bowel syndrome) - Mixed hyperlipidemia - Obesity PAST SURGICAL HISTORY Procedure Laterality Date - COLONOSCOPY 2020 - CYST EXCISION Left foot x 2 - EXTRACTION ERUPTED TOOTH wisdom teeth - ORAL SURGERY PROCEDURE Gum surgery for gingivitis - REVISE MEDIAN N/CARPAL TUNNEL SURG Right - SHOULDER SURGERY HX Right 2019 - SIGMOIDOSCOPY 2020 - TONSILLECTOMY HX 1962 FAMILY HISTORY Problem Relation Age of Onset - other (GBS) Mother 40 - Dementia Mother - Heart Father - Vision loss Father Social History Tobacco Use - Smoking status: Former Smoker Packs/day: 0.75 Years: 15.00 Pack years: 11.25 Types: Cigarettes Quit date: 1989 Years since quittin.6 - Smokeless tobacco: Never Used Vaping Use - Vaping Use: Never used Substance Use Topics - Alcohol use: Not Currently - Drug use: Never Prior to Admission medications as of 06/17/21 0837 Medication Sig Last Dose Taking citalopram (CELEXA) 20 mg tablet Take 20 mg by mouth once daily. Taking Yes fluocinonide (LIDEX) 0.05 % cream Apply 1 application to affected area as needed. Taking Yes liothyronine (CYTOMEL) 5 mcg tablet Take 10 mcg by mouth once daily. Taking Yes diclofenac, EC, (VOLTAREN) 75 mg EC tablet Take 75 mg by mouth twice daily. Taking Yes fenofibrate nanocrystallized (TRICOR) 145 mg tablet Take 145 mg by mouth once daily. Taking Yes multivit with minerals/lutein (MULTIVITAMIN 50 PLUS ORAL) Take 1 tablet by mouth once daily. Taking Yes neomycin 500 mg tablet Take 2 tablets by mouth as directed. Take 2 tablets at 6 pm, again (more content not included)... Normal [facility] Type and SCR (30D)on 021 ABO/RH(D) Positive Normal [facility] Comment on above: Performed By: #### T SCR30 ####[facility] [place], [place] [phone] [facility] 06-13-2021 [facility] Telephone ([facility]) EMILY CALLES ([id number]) 1960 F Date Time Provider Department 06/13/21 VINAY HALL [facility] During your visit today, we recorded the following information about you: Josefa Mancini 06/13/2021 8:22 AM Signed Received FMLA/STD paperwork on 06/13/21 Pending physician signature and completion. Surgeon: Dr. Hall Date of Surgery (if known): 06/24/21 Ivania Slater MA 06/14/2021 12:07 PM Signed FMLA paperwork completed and faxed to [facility] at [phone]. Confirmation received. Scanned to patient chart. JUVENAL Carrillo MA 06/29/2021 8:19 AM Signed Also received FMLA paperwork on 06/28/21 from Zuri Irby at [facility]. . . Employer Forms for Patient/Caregiver Time Off of Work Completed, signed by provider, and returned to below contact. Completed copy scanned in [facility] Date of Surgery: 06/24/21 Estimated RTW date:07/06/21 Employer: [facility] Date sent to employer: 06/29/21 Received fax confirmation: YES Allergies As of Date: 06/13/2021 (No Known Allergies) Date Reviewed: 06/09/2021 Reviewed by: Evangelina Benson RN - Fully Assessed Reason for Visit: FMLA Paperwork [0566] Prescriptions as of 06/29/2021 - enoxaparin (LOVENOX) 40 mg/0.4 mL Inject 0.4 mL subcutaneously once daily for 21 days. - oxyCODONE IR (ROXICODONE) 5 mg immediate release tablet Take 1 tablet by mouth every 6 hours as needed for pain. - neomycin 500 mg tablet Take 2 tablets by mouth as directed. Take 2 tablets at 6 pm, again at 7 pm and at 11 pm the evening prior to surgery - metroNIDAZOLE (FLAGYL) 500 mg tablet Take 1 tablet by mouth as directed. Take 1 tablet at 6 pm, another at 7 pm and again at 11 pm, the evening prior to surgery - citalopram (CELEXA) 20 mg tablet Take 20 mg by mouth once daily. - fluocinonide (LIDEX) 0.05 % cream Apply 1 application to affected area as needed. - liothyronine (CYTOMEL) 5 mcg tablet Take 10 mcg by mouth once daily. - diclofenac, EC, (VOLTAREN) 75 mg EC tablet Take 75 mg by mouth twice daily. - fenofibrate nanocrystallized (TRICOR) 145 mg tablet Take 145 mg by mouth once daily. - multivit with minerals/lutein (MULTIVITAMIN 50 PLUS ORAL) Take 1 tablet by mouth once daily. 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 patient having flex sig today in preparation for colon resection. Patient denies recent illnesses, fevers, chills, cough, SOB, CP, palpitations, or fluttering. PAST ANESTHESIA HISTORY: No history of adverse event PAST MEDICAL HISTORY Diagnosis Date - Generalized anxiety disorder - Mixed hyperlipidemia - Obesity PAST SURGICAL HISTORY Procedure Laterality Date - COLONOSCOPY - PAST SURGICAL HISTORY OF Left shoulder Prior to Admission medications as of 06/02/21 1239 Medication Sig Last Dose Taking neomycin 500 mg tablet Take 2 tablets by mouth as directed. Take 2 tablets at 6 pm, again at 7 pm and at 11 pm the evening prior to surgery metroNIDAZOLE (FLAGYL) 500 mg tablet Take 1 tablet by mouth as directed. Take 1 tablet at 6 pm, another at 7 pm and again at 11 pm, the evening prior to surgery citalopram (CELEXA) 20 mg tablet Take 20 mg by mouth once daily. fluocinonide (LIDEX) 0.05 % cream apply 1 APPLICATION to affected area topically twice a day liothyronine (CYTOMEL) 5 mcg tablet Take 10 mcg by mouth once daily. diclofenac, EC, (VOLTAREN) 75 mg EC tablet Take 75 mg by mouth twice daily. fenofibrate nanocrystallized (TRICOR) 145 mg tablet Take 145 mg by mouth once daily. multivit with minerals/lutein (MULTIVITAMIN 50 PLUS ORAL) Take 1 tablet by mouth once daily. ALLERGIES No Known Allergies Objective PHYSICAL EXAM: The remainder of the physical exam is noncontributory. Temp 36.7 BP 164/95 Pulse 74 Resp 18 AIRWAY: Airway Visualization of Uvula: Yes Mouth opening greater than 2 fingerbreadths: Yes Neck Full Range of Motion: Yes LUNGS: Lungs clear to auscultation, Good diaphragmatic excursion CARDIAC: Normal S1 and S2; no rubs, murmurs, or gallops, RRR Assessment/Plan ASA Class: ASA Class:: Patient with severe systemic disease Active Problems: Colonic mass POA: Unknown Assessment AND Plan: SIGMOIDOSCOPY FLEXIBLE Resolved Problems: * No resolved hospital problems. * Provisional Diagnosis/Treatment Plan: SIGMOIDOSCOPY FLEXIBLE SIGNATURE: Narcisa Prakash PA-C PATIENT NAME: Emily Haywood DATE: June 09, 2021 TIME: 11:56 AM PAGER: Normal [facility] SURGICAL PATHOLOGYon 021 SURGICAL PATHOLOGY Specimen originated from [facility] Specimen #: [id number] Submitting Physician: VINAY HALL MD FINAL DIAGNOSIS Rectosigmoid mass, biopsy - Fragments of tubulovillous adenoma; no evidence of invasive carcinoma. Joshua Cuadra M.D. (Electronic Signature) SPECIMEN SUBMITTED A: RECTO-SIGMOID MASS, BIOPSY CLINICAL DATA COLONIC MASS, LMP: N/A GROSS DESCRIPTION A. Received in formalin are multiple pieces of rossi, soft tissue aggregating to 1.5 x 0.2 x 0.2 cm. Totally submitted in one cassette. Gross examination performed at [facility], [address] [place] [address] TTN 06/09/2021 9:17:28 PM Date of Report: 06/13/2021 Date of Procedure: 06/09/2021 Date of Receipt: 06/09/2021 Submitted by: VINAY HALL MD Location: [facility] Diagnostic interpretation performed at [facility], [address] [place] [address], [place] [address]. CLIA Number: [id number] Normal [facility] Comment on above: Performed By: #### S #### See report for performing lab information. [facility] EMILY CALLES ([id number]) 1960 F Date Time Provider Department 06/03/21 VINAY HALL [facility] During your visit today, we recorded the following information about you: Myra Fuentes RN 06/03/2021 11:08 AM Signed Call placed to patient to schedule surgery and pre op flex sig. Provided pt with some dates of availability. Will return call to confirm. AMBULATORY PATIENT EDUCATION NOTE SURGICAL PREPARATION DIAGNOSIS: Colon mass READINESS TO LEARN COGNITIVE ABILITY: Alert and oriented MOTIVATION TO LEARN: Eager FAMILY SUPPORT: High - Very involved in pt care PHYSICAL LIMITATIONS AFFECTING LEARNING: None METHOD OF INSTRUCTION: Verbal and Written instruction - handouts provided SUPPLEMENTAL MATERIAL: -location of surgery/ date - patient aware date is tentative -PACC appointment needed -bowel preparations prior to surgery -antibiotics preoperatively -Covid 19 testing pre operatively CLEARANCE: n/a WOUND CARE-post operative wound care DIET- Post op diet Patient acknowledges and understands. They have contact phone number for further concerns and for post operative questions. Electronically Signed By: Myra Fuentes RN BSN DDSI Specialty Executive Cyber Leader Myra Fuentes RN 06/03/2021 12:21 PM Signed Addended by: MYRA FUENTES on: 06/03/2021 12:21 PM Modules accepted: Orders Allergies As of Date: 06/03/2021 (No Known Allergies) Date Reviewed: 06/02/2021 Reviewed by: Vinay Hall MD - Fully Assessed Reason for Visit: Pre-Op Teaching [134] Schedule Surgery [1330] Primary Visit Diagnosis:Polyp of colon, unspecified part of colon, unspecified type [K63.5] Order(s):SIGMOIDOSCOPY [5287219] Order #: [id number] FUTURE neomycin 500 mg tabletTake 2 tablets by mouth as directed. Take 2 tablets at 6 pm, again at 7 pm and at 11 pm the evening prior to surgeryDisp: 6 tabletRfl: 0 metroNIDAZOLE (FLAGYL) 500 mg tabletTake 1 tablet by mouth as directed. Take 1 tablet at 6 pm, another at 7 pm and again at 11 pm, the evening prior to surgeryDisp: 3 tabletRfl: 0 Prescriptions as of 06/03/2021 - neomycin 500 mg tablet Take 2 tablets by mouth as directed. Take 2 tablets at 6 pm, again at 7 pm and at 11 pm the evening prior to surgery - metroNIDAZOLE (FLAGYL) 500 mg tablet Take 1 tablet by mouth as directed. Take 1 tablet at 6 pm, another at 7 pm and again at 11 pm, the evening prior to surgery - citalopram (CELEXA) 20 mg tablet Take 20 mg by mouth once daily. - fluocinonide (LIDEX) 0.05 % cream apply 1 APPLICATION to affected area topically twice a day - liothyronine (CYTOMEL) 5 mcg tablet Take 10 mcg by mouth once daily. - diclofenac, EC, (VOLTAREN) 75 mg EC tablet Take 75 mg by mouth twice daily. - fenofibrate nanocrystallized (TRICOR) 145 mg tablet Take 145 mg by mouth once daily. - multivit with minerals/lutein (MULTIVITAMIN 50 PLUS ORAL) Take 1 tablet by mouth once daily. Problem List As Of Date: 06/03/2021 (None) Prescriptions ordered this encounter Disp Refills Start End NEOMYCIN 500 MG TABLET 6 ta* 0 06/03/2021 Route: ORAL Sig: Take 2 tablets by mouth as directed. Take 2 tablets at 6 pm, again at 7 pm and at 11 pm the evening prior to surgery METRONIDAZOLE 500 MG TABLET 3 ta* 0 06/03/2021 Cmt: Pre Op for surgery Route: ORAL Sig: Take 1 tablet by mouth as directed. Take 1 tablet at 6 pm, another at 7 pm and again at 11 pm, the evening prior to surgery Encounter Status:Closed by MYRA FUENTES on 06/03/21 Normal [facility] CBC and Differentialon 06-02 Abs Baso <0.03 Normal <0.11 [facility] Comment on above: Performed By: #### P REALB #### [place] [id number] [place] [phone] Abs Braxton 0.73 k/uL Normal <0.87 [facility] Comment on above: Performed By: #### P REALB #### [place] [phone] Abs Neut 3.93 k/uL Normal 1.45-7.50 [facility] Comment on above: Performed By: #### P REALB #### [place] [phone] Absolute nRBC <0.01 Normal <0.01 [facility] Comment on above: Performed By: #### P REALB #### [place] [phone] Basophils/100 WBC (Bld) 0.3 % Normal [facility] Comment on above: Performed By: #### P REALB #### [place] [phone] DTYPE Auto Diff Normal [facility] Comment on above: Performed By: #### P REALB #### [place] [phone] Eosinophils (Bld) [#/Vol] 0.21 10*3/uL Normal <0.46 [facility] Comment on above: Performed By: #### P REALB #### [place] [id number] [place] [address] Eosinophils/100 WBC (Bld) 3.2 % Normal [facility] Comment on above: Performed By: #### P REALB #### [place] [phone] Erythrocyte distribution width (RBC) [Ratio] 12.5 % Normal 11.5-15.0 [facility] Comment on above: Performed By: #### P REALB #### [place] [phone] Hematocrit (Bld) [Volume fraction] 42.6 % Normal 36.0-46.0 [facility] Comment on above: Performed By: #### P REALB #### [place] [phone] Hemoglobin (Bld) [Mass/Vol] 13.5 g/dL Normal 11.5-15.5 [facility] Comment on above: Performed By: #### P REALB #### [place] [phone] Lymphocytes (Bld) [#/Vol] 1.60 10*3/uL Normal 1.00-4.00 [facility] Comment on above: Performed By: #### P REALB #### [place] [address] Lymphocytes/100 WBC (Bld) 24.6 % Normal [facility] Comment on above: Performed By: #### P REALB #### [place] [phone] MCH 28.9 pG Normal 26.0-34.0 [facility] Comment on above: Performed By: #### P REALB #### [place] [address] MCHC (RBC) [Mass/Vol] 31.7 g/dL Normal 30.5-36.0 [facility] Comment on above: Performed By: #### P REALB #### [facility] [address] [place], [place] [address] MCV (RBC) [Entitic vol] 91.2 fL Normal 80.0-100.0 [facility] Comment on above: Performed By: #### P REALB #### [place] [address] [place], [place] [address] Monocytes/100 WBC (Bld) 11.2 % Normal [facility] Comment on above: Performed By: #### P REALB #### [place] [address] [place], [place] [address] Neutrophils/100 WBC (Bld) 60.7 % Normal [facility] Comment on above: Performed By: #### P REALB #### [place] [address] [place], [place] [address] NRBCs 0.0 /100 WBC Normal 0 [facility] Comment on above: Performed By: #### P REALB #### [place] [address] [place], [place] [address] Platelet mean volume (Bld) [Entitic vol] 12.7 fL Normal 9.0-12.7 [facility] Comment on above: Performed By: #### P REALB #### [place] [address] [place], [place] [address] Platelets (Bld) [#/Vol] 171 10*3/uL Normal 150-400 [facility] Comment on above: Performed By: #### P REALB #### [place] [address] [place], [place] [address] RBC (Bld) [#/Vol] 4.67 10*6/uL Normal 3.90-5.20 [facility] Comment on above: Performed By: #### P REALB #### [facility] [address] [place], [place] [address] WBC (Bld) [#/Vol] 6.51 10*3/uL Normal 3.70-11.00 [facility] Comment on above: Performed By: #### P REALB #### [facility] [address] [place], [place] [address] CNOVon 06-02-2021 CNOV Office Visit (CORSAV ) JAIME HAYWOODFLAQUITOEMILY Nima ([id number]) 1960 F Date Time Provider Department 06/02/21 11:30 AM VINAY HALL During your visit today, we recorded the following information about you: Pulse Blood pressure Weight 62/minute 139/80 111.1 kg Vinay Hall MD 06/02/2021 12:44 PM Signed COLORECTAL SURGERY June 02, 2021 Emily Haywood 60 year old This consult was requested by Dr. Terrence Ferro / Jenna and my final recommendations will be communicated to the requesting health care provider by way of the shared medical record for internal providers or letter via the [employer] for external providers. Chief Complaint: colon mass History of Present Illness: Emily Haywood is a 60 year old female presents with colon mass Colonoscopy with Dr David Ferro - 05/04/21-colorectal screening --moderate descending and sigmoid diverticulitis, biopsied --circumferential polypoid mass, non obstructing, beginning at 20 cm extending to 15 cm PATH -rectosigmoid junction mass biopsy: superficial fragments of villous adenoma -distal sigmoid inflammation biopsy: colonic mucosa with surface erosion, dense chronic inflammation Colonoscopy was done because she was having some change in bowel habits. Results as above No past medical history on file. No past surgical history on file. No current outpatient medications on file. No current facility-administered medications for this visit. ALLERGIES Not on File No family history on file. Social History Tobacco Use - Smoking status: Not on file Substance Use Topics - Alcohol use: Not on file - Drug use: Not on file Physical Exam: BP 139/80 Pulse 62 Wt 111.1 kg (245 lb) General Appearance: Well appearing, alert, in no acute distress, well-hydrated, well nourished. Abdomen: soft, nontender Assessment Assessment and Plan: Emily Haywood is a 60 year old female with colonoscopy revealing sigmoid/rectosigmoid polypoid mass and biopsy showed villous adenoma. I will repeat a flexible sigmoidoscopy with tattoo so I can plan my surgical resection site. I will also repeat biopsies to ensure there is no cancer within. After this we can likely plan for surgical intervention. Consent obtained for laparoscopic low anterior resection, depending on location we may opt for robotic. Potential need for ostomy discussed. If cancer is found she would need staging CT scans/CEA and possible MRI depending on location Medical Decision Making: Data Reviewed: - Tests AND Documents Reviewed/ordered: Review of prior notes from Dr. Ferro - Review of Pathology - Review of Labs: CBC, BMP - Review of Procedures / Tests: Colonoscopy - Additional testing or imaging to be ordered: Flexible sigmoidoscopy Risk of morbidity, mortality and/or complications of treatment plan: high Vinay Hall MD Colorectal Surgery Referring Provider: TERRENCE FERRO [[id number]] Allergies As of Date: 06/02/2021 (No Known Allergies) Date Reviewed: 06/02/2021 Reviewed by: Vinay Hall MD - Fully Assessed Reason for Visit: New Patient [172] Primary Visit Diagnosis:Polyp of colon, unspecified part of colon, unspecified type [K63.5] Order(s):CBC + DIFF [SQCBCDIF] Order #: [id number] FUTURE COMP METABOLIC PANEL [SQCMP] Order #: [id number] FUTURE PREALBUMIN BLD [SQPREALB] Order #: [id number] FUTURE ECG COMPLETE [ECG01] Order #: [id number] FUTURE Prescriptions as of 06/28/2021 - enoxaparin (LOVENOX) 40 mg/0.4 mL Inject 0.4 mL subcutaneously once daily for 21 days. - oxyCODONE IR (ROXICODONE) 5 mg immediate release tablet Take 1 tablet by mouth every 6 hours as needed for pain. - neomycin 500 mg tablet Take 2 tablets by mouth as directed. Take 2 tablets at 6 pm, again at 7 pm and at 11 pm the evening prior to surgery - metroNIDAZOLE (FLAGYL) 500 mg tablet Take 1 tablet by mouth as directed. Take 1 tablet at 6 pm, another at 7 pm and again at 11 pm, the evening prior to surgery - citalopram (CELEXA) 20 mg tablet Take 20 mg by mouth once daily. - fluocinonide (LIDEX) 0.05 % cream Apply 1 application to affected area as needed. - liothyronine (CYTOMEL) 5 mcg tablet Take 10 mcg by mouth once daily. - diclofenac, EC, (VOLTAREN) 75 mg EC tablet Take 75 mg by mouth twice daily. - fenofibrate nanocrystallized (TRICOR) 145 mg tablet Take 145 mg by mouth once daily. - multivit with minerals/lutein (MULTIVITAMIN 50 PLUS ORAL) Take 1 tablet by mouth once daily. Problem List As Of Date: 06/02/2021 (None) Letter Text Encounter Status:Closed by VINAY HALL on 06/02/21 Normal [facility] Comp Metabolic Panelon 06-02 Albumin [Mass/Vol] 4.2 g/dL Normal 3.9-4.9 [facility] Comment on above: Performed By: #### P REALB #### [facility] [address] [place], [place] [address] ALP [Catalytic activity/Vol] 75 U/L Normal 34-123 [facility] Comment on above: Performed By: #### P REALB #### [facility] [address] [place], [place] [address] ALT [Catalytic activity/Vol] 26 U/L Normal 7-38 [facility] Comment on above: Performed By: #### P REALB #### [facility] [address] [place], [place] [address] Anion gap [Moles/Vol] 8 mmol/L Low 9-18 [facility] Comment on above: Performed By: #### P REALB #### [facility] [address] [place] [address] AST [Catalytic activity/Vol] 31 U/L Normal 13-35 [facility] Comment on above: Performed By: #### P REALB #### [facility] [place] [address] Bilirubin [Mass/Vol] 0.5 mg/dL Normal 0.2-1.3 [facility] Comment on above: Performed By: #### P REALB #### [place] [address] Calcium [Mass/Vol] 10.0 mg/dL Normal 8.5-10.2 [facility] Comment on above: Performed By: #### P REALB #### [place] [address] Chloride [Moles/Vol] 103 mmol/L Normal 97-105 [facility] Comment on above: Performed By: #### P REALB #### [facility] [address] [place] [address] CO2 [Moles/Vol] 26 mmol/L Normal 22-30 [facility] Comment on above: Performed By: #### P REALB #### [address] [address] Creatinine [Mass/Vol] 0.54 mg/dL Low 0.58-0.96 [facility] Comment on above: Performed By: #### P REALB #### [facility] [place] [id number] eGFR- Amer. >60 Normal [facility] Comment on above: Performed By: #### P REALB #### [facility] [address] [place], [place] [id number] eGFR-All Other Races >60 Normal [facility] Comment on above: Result Comment: eGFR (Estimated GFR) Units of measure: mL/min/1.73 meters squared eGFR is derived from the reexpressed MDRD Study equation using the following parameters: serum creatinine, age, gender and race. The creatinine assay has been calibrated to be traceable to IDMS. An eGFR <60 mL/min/1.73m2 for >3 months is consistent with chronic kidney disease. Refer to KDOQI guidelines for clinical interpretation. In patients with unstable renal function, e.g. those with acute kidney injury, the eGFR may not accurately reflect actual GFR. Performed By: #### P REALB #### [facility] [address] [place], [place] [address] Glucose [Mass/Vol] 91 mg/dL Normal 74-99 [facility] Comment on above: Result Comment: The [place] Diabetes Association (ADA) provides guidance for cutoff values for fasting glucose and random glucose. The ADA defines fasting as no caloric intake for at least 8 hours. Fasting plasma glucose results between 100 to 125 mg/dL indicate increased risk for diabetes (prediabetes). Fasting plasma glucose results greater than or equal to 126 mg/dL meet the criteria for diagnosis of diabetes. In the absence of unequivocal hyperglycemia, results should be confirmed by repeat testing. In a patient with classic symptoms of hyperglycemia or hyperglycemic crisis, random plasma glucose results greater than or equal to 200 mg/dL meet the criteria for diagnosis of diabetes. Reference: Standards of Medical Care in Diabetes 2016, [place] [employer]. Diabetes Care. 2016.39(Suppl 1). Performed By: #### P REALB #### [facility] [address] [place], [place] [address] Potassium [Moles/Vol] 4.4 mmol/L Normal 3.7-5.1 [facility] Comment on above: Performed By: #### P REALB #### [facility] [address] [place], [place] [address] Protein [Mass/Vol] 7.0 g/dL Normal 6.3-8.0 [facility] Comment on above: Performed By: #### P REALB #### [facility] [address] [place], [place] [address] Sodium [Moles/Vol] 137 mmol/L Normal 136-144 [facility] Comment on above: Performed By: #### P REALB #### [facility] [address] [place], [place] [address] Urea nitrogen [Mass/Vol] 16 mg/dL Normal 7-21 [facility] Comment on above: Performed By: #### P REALB #### [facility] [address] [place], [place] [address] Prealbuminon 06-02-2021 Prealbumin [Mass/Vol] 22 mg/dL Normal 17-36 [facility] Comment on above: Performed By: #### P REALB #### [facility] [address] [place], [place] [address] Ambulatory Clinical Summaryo n 05-18-2021 Ambulatory Clinical Summary {[id number]}CD:[id number] Normal [facility] General Surgery Office/Clini c Noteon 05-17-2021 General Surgery Office/Clinic Note Chief Complaint post operative follow up HPI Staff 13 day post operative follow up post colonoscopy with biopsy from sigmoid and rectosigmoid junction mass. History of Present Illness 2 weeks s/p colonoscopy for colorectal screening; patient found to have distal sigmoid colitis, bx revealed surface erosion, dense chronic inflammation with prominent lymphoid aggregates, no granulomata; possible IBD; also found to have large villous lesion at rectosigmoid junction, encompassed 3/4 of the circumference of the colon; biopsies just revealed villous adenoma, but appeared superficial. patient denies abdominal pain or blood in stools; no h/o IBD. Review of Systems ROS - Provider Constitutional: no fever, no sweats, no weight loss. Eyes: no glasses, no blurred vision, no visual loss. ENMT: no dentures, no hoarseness, no swallowing difficulties, no hearing loss, no ear infection(s), no nose bleeds. Cardiovascular: normal blood pressure, no chest pain, regular heartbeat, no heart murmur. Respiratory: no shortness of breath, no cough, no asthma, no wheezing. Gastrointestinal: no nausea, no vomiting, no diarrhea, no constipation, no blood in stool, no change in bowel habits, no abdominal pain, no hepatitis. Genitourinary: no kidney stones, no urine infection, no dysuria. Musculoskeletal: moderate pain, no weakness. Skin: no changing moles, no rash, no skin lumps. Neurologic: no seizures, no epilepsy, no headache. Psychiatric: no emotional or psychiatric problem. Heme/Lymph: no bleeding problems, no anemia, no blood clots, no transfusions. Allergy/Immunologic: no swollen lymph nodes/glands, no IV drug abuse. Other: Additional ROS info: Except as noted in the above Review of Systems and in the History of Present Illness, all other systems have been reviewed and are negative or noncontributory. Physical Exam Vitals & Measurements T: 37.0 ?C (Temporal Artery) Assessment/Plan 1. Villous adenoma of colon (D37.4: Neoplasm of uncertain behavior of colon) involving 3/4 of bowel wall circumference; will likely require surgical resection, will progress to cancer if not already present; possible associated IBD in distal sigmoid; will refer to colorectal surgery for recommendations and treatment, patient prefers [facility]; call sooner if problems/questions. Ordered: [facility] External Ambulatory Referral 2. Left sided colitis without complications (K51.50: Left sided colitis without complications) see # 1 Ordered: [facility] External Ambulatory Referral Follow-up No qualifying data available Problem List/Past Medical History Ongoing Arthralgia BMI 40.0-44.9, adult Cervical spondylosis Chronic low back pain Colitis determined by colorectal biopsy Colon polyps Dyshidrotic eczema Eczema Fatigue Hypertriglyceridemia Keratosis Knee osteoarthritis Neuropathic pain Obesity Pain in right hip Paresthesia of upper limb Screening for malignant neoplasm of colon Shoulder impingement syndrome Thyromegaly Villous adenoma of colon Historical No qualifying data Procedure/Surgical History Colonoscopy (05/04/2021), Colonoscopy (11/05/2007), Carpal tunnel syndrome of right wrist, Cataract extraction, Right shoulder. Medications citalopram 20 mg Tab diclofenac sodium 75 mg Oral EC Tab fenofibrate 145 mg Tab mupirocin Top 2% Oint Vitamin D3 1000 intl units oral tablet, 1000 International_Unit= 1 tab(s), Oral, Daily Zyrtec Dissolve 10 mg oral tablet, dispersible, 10 mg= 1 tab(s), Oral, Daily, PRN Allergies No Known Allergies Social History Tobacco Former smoker, quit more than 30 days ago Tobacco Use:. Never Smokeless Tobacco Use:., 05/17/2021 Family History Heart disease: Father. Immunizations Vaccine Date Status SARS-CoV-2 (COVID-19) mRNA BNT-162b2 vax 01/06/2021 Recorded Normal [facility] Comment on above: Result Comment: Elec tronically Signed By: ROSA ISELA PALMER, Terrence Muller\derek\Date and Time Signed: 05/17/21 16:31 EDT Outside Colonoscopyon 2020 Outside Colonoscopy [id number] D:127 Normal [facility] Pathology Noteon 05-10-2021 Pathology Note [id number] CD:127 Normal [facility] Lab Reportson 05-03-2021 Lab Reports [id number] D:127 Normal [facility] Provider Letter FTon 03-28 Provider Letter [facility] (Inserted Image. Un able to display) Mikel Ruiz, [address] [facility] [place] [address] [place] [address] Re: EMILY HAYWOOD Date of : 1960 Thank you for your referral of Emily Haywood who was seen on consultation for colonoscopy. A colonoscopy is planned. I have enclosed my consultation notes for your review. I will be happy to follow Emily. Sincerely, Terrence Ferro MD General Surgery [facility] Consent for Procedure/Surger yon 03-24-2021 Consent for Procedure/Surgery [id number] D:127 [facility] Historical Records Officeon 03-24-2021 Historical Records Office [id number] D:127 Normal [facility] Ambulatory Clinical Summaryo n 03-23-2021 Ambulatory Clinical Summary {[id number]}CD:[id number] [facility] Patient Educationon 03-23-20 Patient Education Colonoscopy A colonoscopy is an exam to evaluate your entire colon. In this exam, your colon is cleansed. A long fiberoptic tube is inserted through your rectum and into your colon. The fiberoptic scope (endoscope ) is a long bundle of enclosed and very flexible fibers. These fibers transmit light to the area examined and send images from that area to your caregiver. Discomfort is usually minimal. You may be given a drug to help you sleep (sedative ) during or prior to the procedure. This exam helps to detect lumps (tumors ), polyps, inflammation, and areas of bleeding. Your caregiver may also take a small piece of tissue (biopsy ) that will be examined under a microscope. LET YOUR CAREGIVER KNOW ABOUT: ? Allergies to food or medicine. ? Medicines taken, including vitamins, herbs, eyedrops, gflc-itl-ajmstuc medicines, and creams. ? Use of steroids (by mouth or creams). ? Previous problems with anesthetics or numbing medicines. ? History of bleeding problems or blood clots. ? Previous surgery. ? Other health problems, including diabetes and kidney problems. ? Possibility of , if this applies. BEFORE THE PROCEDURE ? A clear liquid diet may be required for 2 days before the exam. ? Ask your caregiver about changing or stopping your regular medications. ? Liquid injections (enemas ) or laxatives may be required. ? A large amount of electrolyte solution may be given to you to drink over a short period of time. This solution is used to clean out your colon. ? You should be present 60 minutes prior to your procedure or as directed by your caregiver. AFTER THE PROCEDURE ? If you received a sedative or pain relieving medication, you will need to arrange for someone to drive you home. ? Occasionally, there is a little blood passed with the first bowel movement. Do not be concerned. FINDING OUT THE RESULTS OF YOUR TEST Not all test results are available during your visit. If your test results are not back during the visit, make an appointment with your caregiver to find out the results. Do not assume everything is normal if you have not heard from your caregiver or the medical facility. It is important for you to follow up on all of your test results. HOME CARE INSTRUCTIONS ? It is not unusual to pass moderate amounts of gas and experience mild abdominal cramping following the procedure. This is due to air being used to inflate your colon during the exam. Walking or a warm pack on your belly (abdomen ) may help. ? You may resume all normal meals and activities after sedatives and medicines have worn off. ? Only take ougi-xhs-ogglxsw or prescription medicines for pain, discomfort, or fever as directed by your caregiver. Do not use aspirin or blood thinners if a biopsy was taken. Consult your caregiver for medicine usage if biopsies were taken. SEEK IMMEDIATE MEDICAL CARE IF: ? You have a fever. ? You pass large blood clots or fill a toilet with blood following the procedure. This may also occur 10 to 14 days following the procedure. This is more likely if a biopsy was taken. ? You develop abdominal pain that keeps getting worse and cannot be relieved with medicine. Document Released: 10/19/2001 Document Revised: 01/13/2013 Document Reviewed: 06/03/2009 ExitCare? Patient Information ?2013 [employer]. Physical Medicine and Rehabilitation Exercising to Lose Weight Exercise is structured, repetitive physical activity to improve fitness and health. Getting regular exercise is important for everyone. It is especially important if you are overweight. Being overweight increases your risk of heart disease, stroke, diabetes, high blood pressure, and several types of cancer. Reducing your calorie intake and exercising can help you lose weight. Exercise is usually categorized as moderate or vigorous intensity. To lose weight, most people need to do a certain amount of moderate-intensity or vigorous-intensity exercise each week. Moderate-intensity exercise Moderate-intensity exercise is any activity that gets you moving enough to burn at least three times more energy (calories) than if you were sitting. Examples of moderate exercise include: ? Walking a mile in 15 minutes. ? Doing light yard work. ? Biking at an easy pace. Most people should get at least 150 minutes (2 hours and 30 minutes) a week of moderate-intensity exercise to maintain their body weight. Vigorous-intensity exercise Vigorous-intensity exercise is any activity that gets you moving enough to burn at least six times more calories than if you were sitting. When you exercise at this intensity, you should be working hard enough that you are not able to carry on a conversation. Examples of vigorous exercise include: ? Running. ? Playing a team sport, such as football, basketball, and soccer. ? Jumping rope. Most people should get at least 75 minutes (1 hour and 15 minutes) a week of vig (more content not included)... Normal [facility] Physician Referralon 021 Physician Referral [id number] D:127 Normal [facility] Patient Correspondenceon Patient Correspondence [id number] D:127 Normal [facility] Physician Referralon 021 Physician Referral [id number] :127 Normal [facility] Physician Referralon 020 Physician Referral [id number] :127 Normal [facility] Encounters Encounter Date Encounter Type Care Provider Facility Start: 02-09-2023 Encounter for genera l adult medical examination without abnormal findings DR MIKEL RUIZ . [facility] Start: 02-05-2023 End: 02-06-[address] MIKEL RUIZ . Facility[facility] Start: 02-05-2023 End: 02-06-2023 Encounter for general adult medical examination without abnormal findings DR MIKEL RUIZ . Facility:[facility] Start: 10-23-2022 End: 10-23-[address] MIKEL RUIZ . Facility:[facility] Start: 07-26-2022 End: 07-26-[address] MIKEL RUIZ . Facility:[facility] Start: 05-09-2022 End: 05-10-[address] MIKEL RUIZ . Facility:[facility] Procedures Date Procedure Procedure Detail Performing Clinician Start: 06-17-2021 Antibody screen Comment on above: Performed By: #### T [id number] ####[facility] [place], [place] [id number] Payers Date Payer Category Payer Unknown [id number] 2.16.84 [id number] 1960 Unknown [id number] 2.16.84 [id number] 1960 Unknown [id number] 2.16.84 [id number] 1960 Unknown [id number] 2.16.84 [id number] 1959 Unknown [id number] Unknown [id number] Progress note 07-21-2021 Note Date & Type Note Facility 07-21-2021 Note HNO ID: [id number] Author: Vinay Hall MD Service: ? Author Type: Physician Type: Progress Notes Filed: 07/21/2021 12:38 PM Note Text: COLORECTAL SURGERY July 21, 2021 Emily Haywood 61 year old Chief Complaint: Post-op visit s/p Laparoscopic Proctosigmoidectomy (Low Anterior Resection), Laparoscopic Mobilization of Splenic Flexure, Flexible Sigmoidoscopy, Laparoscopic Omental Pedicle Flap 06/24/21 History of Present Illness: Emily Haywood is a 61 year old female here for post-op visit. Pathology: FINAL DIAGNOSIS 1. Sigmoid colon and rectum, resection (A) - Tubulovillous adenoma with focal high-grade dysplasia (see comment). - Diverticulosis. - Twelve lymph nodes, negative for malignancy (0/12). 2. Distal donut, excision (B) - Segment of colon with no diagnostic abnormality. She feels well. Constipation at times. No pain. Tolerating a diet PAST MEDICAL HISTORY Diagnosis Date - Acquired hypothyroidism - Generalized anxiety disorder - IBS (irritable bowel syndrome) - Mixed hyperlipidemia - Obesity PAST SURGICAL HISTORY Procedure Laterality Date - COLONOSCOPY 2020 - CYST EXCISION Left foot x 2 - EXTRACTION ERUPTED TOOTH wisdom teeth - ORAL SURGERY PROCEDURE Gum surgery for gingivitis - REVISE MEDIAN N/CARPAL TUNNEL SURG Right - SHOULDER SURGERY HX Right 2019 - SIGMOIDOSCOPY 2020 - TONSILLECTOMY HX 1963 Current Outpatient Medications Medication Sig Dispense Refill - oxyCODONE IR (ROXICODONE) 5 mg immediate release tablet Take 1 tablet by mouth every 6 hours as needed for pain. 25 tablet 0 - neomycin 500 mg tablet Take 2 tablets by mouth as directed. Take 2 tablets at 6 pm, again at 7 pm and at 11 pm the evening prior to surgery 6 tablet 0 - metroNIDAZOLE (FLAGYL) 500 mg tablet Take 1 tablet by mouth as directed. Take 1 tablet at 6 pm, another at 7 pm and again at 11 pm, the evening prior to surgery 3 tablet 0 - citalopram (CELEXA) 20 mg tablet Take 20 mg by mouth once daily. - fluocinonide (LIDEX) 0.05 % cream Apply 1 application to affected area as needed. - liothyronine (CYTOMEL) 5 mcg tablet Take 10 mcg by mouth once daily. - diclofenac, EC, (VOLTAREN) 75 mg EC tablet Take 75 mg by mouth twice daily. - fenofibrate nanocrystallized (TRICOR) 145 mg tablet Take 145 mg by mouth once daily. - multivit with minerals/lutein (MULTIVITAMIN 50 PLUS ORAL) Take 1 tablet by mouth once daily. No current facility-administered medications for this visit. ALLERGIES No Known Allergies FAMILY HISTORY Problem Relation Age of Onset - other (GBS) Mother 40 - Dementia Mother - Heart Father - Vision loss Father Social History Tobacco Use - Smoking status: Former Smoker Packs/day: 0.75 Years: 15.00 Pack years: 11.25 Types: Cigarettes Quit date: 1989 Years since quittin. - Smokeless tobacco: Never Used Vaping Use - Vaping Use: Never used Substance Use Topics - Alcohol use: Not Currently - Drug use: Never Physical Exam: BP 97/70 Pulse 94 Wt 100.7 kg (222 lb) BMI 38.11 kg/m? General Appearance: Well appearing, alert, in no acute distress, well-hydrated, well nourished. Abdomen: soft, nontender, incisions well healed Assessment Assessment and Plan: Emily Haywood is a 61 year old female status post laparoscopic LAR for large circumferential rectal polyp. Pathology confirmed tubulovillous adenoma. She will continue use MiraLAX as needed for constipation. She will return to see me as needed. She knows she needs a colonoscopy in 1 year with her endoscopist. Vinay Hall MD Colorectal Surgery [facility] Progress note 06-26-2021 Note Date & Type Note Facility 06-26-2021 Note HNO ID: [id number] Author: Naa Garcia MD Service: Colorectal Author Type: Resident Type: Progress Notes Filed: 06/26/2021 10:38 PM Note Text: ODETTE DRAIN REMOVAL ? After proper patient identification, ODETTE?drain was removed at the bedside. Drain isolated, suction removed, suture cut. Recovered whole and intact. Dry gauze dressing applied. The patient tolerated the procedure well. ? Naa Garcia MD [facility] Progress note 06-26-2021 Note Date & Type Note Facility 06-26-2021 Note HNO ID: [id number] Author: Naa Garcia MD Service: Colorectal Author Type: Resident Type: Progress Notes Filed: 06/26/2021 11:54 AM Note Text: General Surgery Progress Note Service Date: June 26, 2021 Patient Name: Emily Haywood Assessment and Plan: Emily Haywood is a 60 year old female with history of villous adenoma of the rectosigmoid junction s/p laparoscopic hand assisted LAR on 06/24. 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 Plan to remove ODETTE prior to discharge Renal: Strict I/Os. Granado removed overnight POD 1 Heme/DVT PPx: ICDs, Lovenox 40mg daily and plan for homegoing Wound/ID: No abx Dispo: Continue RNF. Possible discharge home today vs. Tomorrow. Naa Garcia MD June 26, 2021 7:39 AM Subjective: No acute events overnight. Pain controlled, denies nausea/vomiting. Started to pass gas and had a bowel movement overnight. Voiding around granado, so it was removed overnight. Physical Exam: BP 120/57 Pulse 63 Temp 36.9 ?C (98.4 ?F) (Oral) Resp 16 Ht 162.6 cm (5' 4 ) Wt 110.7 kg (244 lb) SpO2 93% BMI 41.88 kg/m? GENERAL/NEURO: Awake, Alert CHEST: Unlabored breathing ABDOMEN: Obese, soft, Non-tender, Non-Distended, Incisions clean/dry/intact. ODETTE SS EXTREMITIES: warm, well perfused Labs: CBC, Coags, BMP, Mg, Phos Recent Labs 06/25/21 0659 WBC 10.27 HB 11.5 HCT 35.8* PLT 144* NA 141 K 4.3 CHLOR 108 CO2 25 BUN 11 CREAT 0.52* GLUC 104* CA 9.3 Liver Function, Amylase, AND Lipase Intake and Output: Date 06/25/21 07 - 06/26/21 0659 06/26/21 0700 - 06/27/21 0659 Shift 1102-9263 1146-0249 5147-6618 24 Hour Total 9095-7234 2634-6184 7202-8603 24 Hour Total INTAKE PO 100 150 250 PO 100 150 250 Shift Total 100 150 250 OUTPUT Urine 882 528 8146 2150 Void (ml) 800 800 Output ([REMOVED] Indwelling Urinary Catheter 06/24/21 1409 Granado 16 Fr 06/26/21 0100) 300 190 283 3610 Tubes 90 90 50 230 Drain/Tube Output (Drain/Tube 06/24/21 1713 Jose Manuel Burton Right Lower Quadrant) 90 90 50 230 # of BMs Stool Incontinence 1 x 1 x Number of BMs 1 x 1 x 4 x 6 x Shift Total 428 200 4554 2380 Weight (kg) 110.7 110.7 110.7 110.7 110.7 110.7 110.7 110.7 Current Medications: Current Facility-Administered Medications Medication Dose Route Frequency - Fenofibrate 160 mg (LOFIBRA) 160 mg ORAL DAILY - citalopram 20 mg tab(s) (CeleXA) 20 mg ORAL DAILY - lactated ringers iv infusion 75 mL/hr INTRAVENOUS CONTINUOUS - alvimopan 12 mg cap(s) (ENTEREG) 12 mg ORAL BID - ondansetron (PF) 4 mg injection (ZOFRAN) 4 mg INTRAVENOUS q 6 H PRN - acetaminophen 1,000 mg tab(s) (TYLENOL) 1,000 mg ORAL q 6 H - gabapentin 300 mg cap(s) (NEURONTIN) 300 mg ORAL q 8 H - keTORolac 15 mg injection (TORADOL) 15 mg INTRAVENOUS q 6 H Followed by - ibuprofen 800 mg tab(s) (MOTRIN) 800 mg ORAL q 8 H - enoxaparin 40 mg injection (LOVENOX) 40 mg SUBCUTANEOUS DAILY - NaCl 0.9% iv flush bag 20 mL INTRAVENOUS PRN - sodium chloride 0.9 % (flush) 3-5 mL (BD POSIFLUSH) 3-5 mL INTRAVENOUS q 12 H - HYDROmorphone HIGH LIFT DRIVER 0.5 mg/mL in NaCl 0.9% 100 mL INTRAVENOUS CONTINUOUS - lactobacillus rhamnosus 10 billion cell (CULTURELLE) capsule 1 capsule ORAL DAILY Prior to Admission Medications: neomycin 500 mg tablet Take 2 tablets by mouth as directed. Take 2 tablets at 6 pm, again at 7 pm and at 11 pm the evening prior to surgery metroNIDAZOLE (FLAGYL) 500 mg tablet Take 1 tablet by mouth as directed. Take 1 tablet at 6 pm, another at 7 pm and again at 11 pm, the evening prior to surgery citalopram (CELEXA) 20 mg tablet Take 20 mg by mouth once daily. fluocinonide (LIDEX) 0.05 % cream Apply 1 application to affected area as needed. liothyronine (CYTOMEL) 5 mcg tablet Take 10 mcg by mouth once daily. diclofenac, EC, (VOLTAREN) 75 mg EC tablet Take 75 mg by mouth twice daily. fenofibrate nanocrystallized (TRICOR) 145 mg tablet Take 145 mg by mouth once daily. multivit with minerals/lutein (MULTIVITAMIN 50 PLUS ORAL) Take 1 tablet by mouth once daily. Patient Active Hospital Problem List: Colonic mass (06/09/2021) [facility] Progress note 06-25-2021 Note Date & Type Note Facility 06-25-2021 Note HNO ID: [id number] Author: Joseluis Colvin MD Service: Colorectal Author Type: Resident Type: Progress Notes Filed: 06/25/2021 7:43 AM Note Text: General Surgery Progress Note Service Date: June 25, 2021 Patient Name: Emily Haywood Assessment and Plan: Emily Haywood is a 60 year old female with history of villous adenoma of the rectosigmoid junction s/p laparoscopic hand assisted LAR on 06/24. 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 Continue Granado (to be removed on POD3 if no issues) Heme/DVT PPx: ICDs, Lovenox OD Wound/ID: No abx Dispo: Continue RNF Joseluis Colvin MD June 25, 2021 7:39 AM Subjective: No acute events overnight. Pain controlled, denies nausea/vomiting. No bowel function at this time Physical Exam: BP (!) 110/46 Pulse 65 Temp 37.1 ?C (98.7 ?F) (Oral) Resp 18 Ht 162.6 cm (5' 4 ) Wt 110.7 kg (244 lb) SpO2 95% BMI 41.88 kg/m? GENERAL/NEURO: Awake, Alert CHEST: Unlabored breathing ABDOMEN: Soft, Non-tender, Non-Distended, Incisions clean/dry/intact. ODETTE SS EXTREMITIES: warm, well perfused Labs: CBC, Coags, BMP, Mg, Phos Liver Function, Amylase, AND Lipase Intake and Output: Date 06/24/21 07 - 06/25/21 0659 06/25/21 07 - 06/26/21 0659 Shift 7447-6022 6398-5318 6296-3712 24 Hour Total 9907-1766 5702-3922 3471-8000 24 Hour Total INTAKE PO 50 50 PO 50 50 IV 2500 1146 3646 Volume (mL) (lactated ringers iv infusion) 1000 1000 Volume (mL) (lactated ringers iv infusion) 1500 1500 Volume (mL) (lactated ringers iv infusion) 1146 1146 Shift Total 2550 1146 3696 OUTPUT Urine 75 865 043 7011 Void (ml) 0 0 OR Urine Output 75 460 535 Output ( Indwelling Urinary Catheter 06/24/21 1409 Granado 16 Fr) 150 500 650 Emesis 0 0 Emesis (ml) 0 0 Tubes 140 70 210 Drain/Tube Output (Drain/Tube 06/24/21 1713 Jose Manuel Burton Right Lower Quadrant) 140 70 210 # of BMs Number of BMs 0 x 0 x Blood 50 50 Estimated Blood loss 50 50 Shift Total 75 944 823 5268 Weight (kg) 110.7 110.7 110.7 110.7 110.7 110.7 110.7 Current Medications: Current Facility-Administered Medications Medication Dose Route Frequency - Fenofibrate 160 mg (LOFIBRA) 160 mg ORAL DAILY - citalopram 20 mg tab(s) (CeleXA) 20 mg ORAL DAILY - lactated ringers iv infusion 75 mL/hr INTRAVENOUS CONTINUOUS - alvimopan 12 mg cap(s) (ENTEREG) 12 mg ORAL BID - ondansetron (PF) 4 mg injection (ZOFRAN) 4 mg INTRAVENOUS q 6 H PRN - acetaminophen 1,000 mg tab(s) (TYLENOL) 1,000 mg ORAL q 6 H - gabapentin 300 mg cap(s) (NEURONTIN) 300 mg ORAL q 8 H - keTORolac 15 mg injection (TORADOL) 15 mg INTRAVENOUS q 6 H Followed by - [START ON 06/26/2021] ibuprofen 800 mg tab(s) (MOTRIN) 800 mg ORAL q 8 H - enoxaparin 40 mg injection (LOVENOX) 40 mg SUBCUTANEOUS DAILY - NaCl 0.9% iv flush bag 20 mL INTRAVENOUS PRN - sodium chloride 0.9 % (flush) 3-5 mL (BD POSIFLUSH) 3-5 mL INTRAVENOUS q 12 H - HYDROmorphone HIGH LIFT DRIVER 0.5 mg/mL in NaCl 0.9% 100 mL INTRAVENOUS CONTINUOUS - lactobacillus rhamnosus 10 billion cell (CULTURELLE) capsule 1 capsule ORAL DAILY Prior to Admission Medications: neomycin 500 mg tablet, Take 2 tablets by mouth as directed. Take 2 tablets at 6 pm, again at 7 pm and at 11 pm the evening prior to surgery metroNIDAZOLE (FLAGYL) 500 mg tablet, Take 1 tablet by mouth as directed. Take 1 tablet at 6 pm, another at 7 pm and again at 11 pm, the evening prior to surgery citalopram (CELEXA) 20 mg tablet, Take 20 mg by mouth once daily. fluocinonide (LIDEX) 0.05 % cream, Apply 1 application to affected area as needed. liothyronine (CYTOMEL) 5 mcg tablet, Take 10 mcg by mouth once daily. diclofenac, EC, (VOLTAREN) 75 mg EC tablet, Take 75 mg by mouth twice daily. fenofibrate nanocrystallized (TRICOR) 145 mg tablet, Take 145 mg by mouth once daily. multivit with minerals/lutein (MULTIVITAMIN 50 PLUS ORAL), Take 1 tablet by mouth once daily. Patient Active Hospital Problem List: Colonic mass (06/09/2021) [facility] Plan of care note 06-25-2021 Note Date & Type Note Facility 06-25-2021 Note HNO ID: [id number] Author: John Ma MD Service: Colorectal Author Type: Resident Type: Plan of Care Filed: 06/24/2021 11:37 PM Note Text: POST OPERATIVE CHECK Patient Name: Emily Haywood Date:June 24, 2021 Time:11:35 PM Procedure: Laparoscopic, hand-assisted low anterior resection, omental pedicle flap, mobilization of splenic flexure, flexible sigmoidoscopy Findings:Tattoo of sigmoid polyp inferior to the peritoneal reflection. Hemostatic anastomosis, negative leak test. EBL:50 mLs Interval: Arrived to [facility]. No nausea or vomiting. NPO. Pain Well-controlled. NO CP or SOB. Pt sleeping well and comfortable. Pain Meds: Tylenol q6h, Hydromorphone HIGH LIFT DRIVER, ketorolac q6h IVF: LR 75 mL/hr PHYSICAL EXAMINATION: BP 102/62 Pulse 78 Temp 37.1 ?C (98.7 ?F) (Oral) Resp 16 Ht 162.6 cm (5' 4 ) Wt 110.7 kg (244 lb) SpO2 95% BMI 41.88 kg/m? General: Awake and alert. Found resting in bed. Cards: RRR per auscultation Lungs: Breathing comfortably with no accessory muscle use on room air Abdomen: Soft, appropriately tender with no distention, ODETTE bloody output 50 mL Extremities: WWP, no edema Neuro: Follows commands and moves all limbs spontaneously Wound: Incision c/d/i, with no erythema. Surgical glue in place Labs: CBC:No results for input(s): WBC, HB, HCT, PLT in the last 168 hours. COAG: No results for input(s): APTT, INR in the last 168 hours. BMP: No results for input(s): GLUC, NA, K, CHLOR, CO2, ANION, BUN, CREAT in the last 168 hours. CHEM: No results for input(s): ALB, TPROT, CA, MG in the last 168 hours. HEPATIC: No results for input(s): ALKPHOS, ALT, AST, TBILI, LIPASE in the last 168 hours. Invalid input(s): AMYLASE John Ma MD Resident General Surgery PGY-1 Personal Pager: [phone] For calls on nights and weekends, please page the gen surg pager: [phone] 11:35 PM, 06/24/2021 [facility] Clinical Note 06-24-2021 Note Date & Type Note Facility 06-24-2021 Note HNO ID: [id number] Author: Regi De Leon APRN.BRAND ADVISOR Service: Anesthesiology Author Type: Nurse Librarian Assistant Type: Anesthesia Procedure Notes Filed: 06/24/2021 2:11 PM Note Text: ANESTHESIOLOGY PROCEDURE NOTE PIV General Information Procedure Start Time/Medication Administration: 06/24/2021 1:34 PM Patient Location: OR Staffing Anesthesiologist: Fidel Grant DO Performed by: anesthesiologist Preparation Sterility Preparation: hand hygiene performed prior to procedure Procedure prep: alcohol swab. Procedure Details Indication: need for IV access Needle Size/Type: 18 gauge angiocath (attempt x 1) Orientation: Right Location: Hand SIGNATURE: Regi De Leon APRN.CRNA PATIENT NAME: Emily Haywood DATE: June 24, 2021 TIME: 2:11 PM CSN: [id number] [facility] Clinical Note 06-24-2021 Note Date & Type Note Facility 06-24-2021 Note HNO ID: [id number] Author: Regi De Leon APRN.CRNA Service: Anesthesiology Author Type: Nurse Librarian Assistant Type: Anesthesia Procedure Notes Filed: 06/24/2021 2:11 PM Note Text: ANESTHESIOLOGY PROCEDURE NOTE Airway General Information Procedure Start Time/Medication Administration: 06/24/2021 1:36 PM Patient location during procedure: OR Staffing Anesthesiologist: Fidel Grant DO BRAND ADVISOR: Regi De Leon APRN.BRAND ADVISOR Performed by: NISHI Indications and Patient Condition Preoxygenated: yes Difficult Mask: No Indications for airway management: anesthesia anesthesia circuit Method: asleep Final Airway Details Final airway type: endotracheal airway Final Endotracheal Airway: ETT Cuffed: yes Successful intubation technique: direct laryngoscopy Endotracheal tube insertion site: oral Blade: Lelo Blade size: #4 ETT size (mm): 7.0 Measured from: lips Measurement (cm): 21 Placement verified by: chest auscultation and capnometry Cormack-Lehane Classification: grade I - full view of glottis Number of attempts at approach: 1 Airway not difficult Comments Atraumatic, lips and teeth in preanesthetic condition SIGNATURE: Regi De Leon APRN.CRNA PATIENT NAME: Emily Haywood DATE: June 24, 2021 TIME: 2:10 PM CSN: [id number] [facility] Progress note 06-02-2021 Note Date & Type Note Facility 06-02-2021 Note HNO ID: [id number] Author: Vinay Hall MD Service: ? Author Type: Physician Type: Progress Notes Filed: 06/02/2021 12:44 PM Note Text: COLORECTAL SURGERY June 02, 2021 Emily Haywood 60 year old This consult was requested by Dr. Terrence Ferro / Jenna and my final recommendations will be communicated to the requesting health care provider by way of the shared medical record for internal providers or letter via the [employer] for external providers. Chief Complaint: colon mass History of Present Illness: Emily Haywood is a 60 year old female presents with colon mass Colonoscopy with Dr David Ferro - 05/04/21-colorectal screening --moderate descending and sigmoid diverticulitis, biopsied --circumferential polypoid mass, non obstructing, beginning at 20 cm extending to 15 cm PATH -rectosigmoid junction mass biopsy: superficial fragments of villous adenoma -distal sigmoid inflammation biopsy: colonic mucosa with surface erosion, dense chronic inflammation Colonoscopy was done because she was having some change in bowel habits. Results as above No past medical history on file. No past surgical history on file. No current outpatient medications on file. No current facility-administered medications for this visit. ALLERGIES Not on File No family history on file. Social History Tobacco Use - Smoking status: Not on file Substance Use Topics - Alcohol use: Not on file - Drug use: Not on file Physical Exam: BP 139/80 Pulse 62 Wt 111.1 kg (245 lb) General Appearance: Well appearing, alert, in no acute distress, well-hydrated, well nourished. Abdomen: soft, nontender Assessment Assessment and Plan: Emily Haywood is a 60 year old female with colonoscopy revealing sigmoid/rectosigmoid polypoid mass and biopsy showed villous adenoma. I will repeat a flexible sigmoidoscopy with tattoo so I can plan my surgical resection site. I will also repeat biopsies to ensure there is no cancer within. After this we can likely plan for surgical intervention. Consent obtained for laparoscopic low anterior resection, depending on location we may opt for robotic. Potential need for ostomy discussed. If cancer is found she would need staging CT scans/CEA and possible MRI depending on location Medical Decision Making: Data Reviewed: - Tests AND Documents Reviewed/ordered: Review of prior notes from Dr. Ferro - Review of Pathology - Review of Labs: CBC, BMP - Review of Procedures / Tests: Colonoscopy - Additional testing or imaging to be ordered: Flexible sigmoidoscopy Risk of morbidity, mortality and/or complications of treatment plan: high Vinay Hall MD Colorectal Surgery [facility] Clinical Note 03-23-2021 Note Date & Type Note Facility 03-23-2021 Note Chief Complaint Consultation for Colonoscopy HPI Staff 60 year old female referred by Dr Ruiz on consultation of Colonoscopy. Previous Colonoscopy completed at [facility] [address] Hall. Denies symptoms of rectal pain, bleeding, constipation, or diarrhea. Has daily BMs. No family history of colon cancer. Taking Diclofenac for arthritis BID. History of Present Illness 60 yo female referred for colorectal screening; denies change in bms or blood in stools, no abdominal complaints; on diclofenac prn, no asa, no SBE prophylaxis; last colonoscopy 2007 with small ulcerations on ileocecal valve, no evidence of IBD; no previous abdominal operations; no fmhx of GI malignancy or IBD. Review of Systems ROS - Provider Constitutional: no fever, no sweats, no weight loss. Eyes: no glasses, no blurred vision, no visual loss. ENMT: no dentures, no hoarseness, no swallowing difficulties, no hearing loss, no ear infection(s), no nose bleeds. Cardiovascular: normal blood pressure, no chest pain, regular heartbeat, no heart murmur. Respiratory: no shortness of breath, no cough, no asthma, no wheezing. Gastrointestinal: no nausea, no vomiting, no diarrhea, no constipation, no blood in stool, no change in bowel habits, no abdominal pain, no hepatitis. Genitourinary: no kidney stones, no urine infection, no dysuria. Musculoskeletal: moderate pain, no weakness. Skin: no changing moles, no rash, no skin lumps. Neurologic: no seizures, no epilepsy, no headache. Psychiatric: no emotional or psychiatric problem. Heme/Lymph: no bleeding problems, no anemia, no blood clots, no transfusions. Allergy/Immunologic: no swollen lymph nodes/glands, no IV drug abuse. Other: Additional ROS info: Except as noted in the above Review of Systems and in the History of Present Illness, all other systems have been reviewed and are negative or noncontributory. Physical Exam Vitals & Measurements BP: 128/80 HT: 163.2 cm HT: 163.19 cm WT: 112.1 kg WT: 110.1 kg BMI: 41.34 HEENT: normal conjunctiva, sclera clear, no scleral icterus, EOM intact, PERRLA, oral mucosa moist without lesions. Neck: trachea midline, no mass, symmetric, no thyromegaly or nodules, no adenopathy Respiratory: lungs CTA, respirations non labored. Cardiovascular: regular rate and rhythm, no murmur, no pedal edema or varicosities. Gastrointestinal: obese, soft, non distended, no tenderness, no masses, no palpable hernias, diastasis recti no, no hepatosplenomegaly; normal bs Lymphatic: no cervical adenopathy, no axillary adenopathy, Musculoskeletal: normal gait, digits and nails without infection, nodes, cyanosis, clubbing. Skin: no rashes, no lesions, no ulcers, no subcutaneous nodules, induration. Psychiatric/Neuro: oriented to time, place, person, judgement normal, affect appropriate for age, insight intact, no focal deficits. Tests: review of old records completed, Discussed surgical options, risks, and possible complications with patient. Assessment/Plan 1. Screening for malignant neoplasm of colon (Z12.11: Encounter for screening for malignant neoplasm of colon) plan colonoscopy under anesthesia, informed consent obtained. 2. BMI 40.0-44.9, adult (Z68.41: Body mass index [BMI]40.0-44.9, adult) recommend diet and exercise. Follow-up No qualifying data available Patient Education Colonoscopy Exercising to Lose Weight Problem List/Past Medical History Ongoing Arthralgia BMI 40.0-44.9, adult Cervical spondylosis Chronic low back pain Colon polyps Dyshidrotic eczema Eczema Fatigue Hypertriglyceridemia Keratosis Knee osteoarthritis Neuropathic pain Obesity Pain in right hip Paresthesia of upper limb Screening for malignant neoplasm of colon Shoulder impingement syndrome Thyromegaly Historical No qualifying data Procedure/Surgical History Colonoscopy (11/05/2007), Carpal tunnel syndrome of right wrist, Cataract extraction, Right shoulder. Medications citalopram 20 mg Tab diclofenac sodium 75 mg Oral EC Tab fenofibrate 145 mg Tab mupirocin Top 2% Oint Vitamin D3 1000 intl units oral tablet, 1000 International_Unit= 1 tab(s), Oral, Daily Zyrtec Dissolve 10 mg oral tablet, dispersible, 10 mg= 1 tab(s), Oral, Daily, PRN Allergies No Known Allergies Social History Tobacco Former smoker, quit more than 30 days ago Tobacco Use:. Never Smokeless Tobacco Use:., 03/23/2021 Family History Heart disease: Father. Immunizations Vaccine Date Status SARS-CoV-2 (COVID-19) mRNA BNT-162b2 vax 01/06/2021 Recorded [facility] Comment on above: Result Comment: Elec tronically Signed By: ROSA ISELA PALMER, Terrence Koenig\Date and Time Signed: 03/23/21 15:53 EDT Summary Purpose Family History No Family History Records FoundNo Family History Records FoundNo Family History Records FoundNo Family History Records FoundNo Family History Records FoundNo Family History Records FoundNo Family History Records Found Advance Directives No Advanced Directives Records FoundNo Advanced Directives Records FoundNo Advanced Directives Records FoundNo Advanced Directives Records FoundNo Advanced Directives Records FoundNo Advanced Directives Records FoundNo Advanced Directives Records Found Additional Source Comments INFORMATION SOURCE (unrecogn ized section and content) DATE CREATED AUTHOR 06/14/2021 [facility] DATE CREATED AUTHOR AUTHOR'S ORGANIZ ATION 06/14/2021 [facility] DATE CREATED AUTHOR AUTHOR'S ORGANIZ ATION 06/18/2021 [facility] DATE CREATED AUTHOR AUTHOR'S ORGANIZ ATION 06/29/2021 [facility] DATE CREATED AUTHOR AUTHOR'S ORGANIZ ATION 06/30/2021 [facility] DATE CREATED AUTHOR AUTHOR'S ORGANIZ ATION 12/08/2021 [facility] DATE CREATED AUTHOR AUTHOR'S ORGANIZ ATION 02/10/2023 [facility] FOR RECORDS PERTAINING TO PATIENTS WHO ARE OR HAVE BEEN ENROLLED IN A CHEMICAL DEPENDENCY/SUBSTANCEABUSE PROGRAM, SOME INFORMATION MAY BE OMITTED. This clinical summary was aggregated from multiple sources. Caution should be exercised in using it in the provision of clinical care. This summary normalizes information from multiple sources, and as a consequence, information in this document may materially change the coding, format and clinical context of patient data. In addition, data may be omitted in some cases. CLINICAL DECISIONS SHOULD BE BASED ON THE PRIMARY CLINICAL RECORDS. [facility]. provides no warranty or guarantee of the accuracy or completeness of information in this document.
--- NOTE | 2024-09-26 06:54 | MM_ITS ---
Patient Name: EMILY LAWTON MR#: [id number] : 1960 Exam Date: 09/26/2024 Ordering Doctor: DR Camron Ruiz . RADIOLOGY REPORT PROCEDURE: MM TOMOSYNTHESIS SCREENING BI COMPARISON: MG MAMM SCREEN 3D JOSÉ MIGUEL CAD, 05/09/2022. MG MAMM SCREEN 3D JOSÉ MIGUEL CAD, 04/19/2021. MG MAMM SCREEN JOSÉ MIGUEL W CAD, 01/07/2019. MAMMO SCREEN DIG JOSÉ MIGUEL, 06/25/2012. INDICATIONS: Screening Calculator Name NCI Breast Cancer Risk Assessment Tool 5 Year Breast Cancer Risk 2.20% Lifetime Breast Cancer Risk 8.90% Personal Breast Cancer No Personal Ovarian Cancer No Treatments None Family Cancers Grandmother-maternal with leukemia cancer at age 80; Grandfather-maternal with prostate cancer at age 50. LOCATION: [facility] BREAST COMPOSITION: The breasts are almost entirely fatty. FINDINGS: DIAGNOSTIC CATEGORY 1--NEGATIVE. RIGHT BREAST: No significant suspicious finding. No significant change has occurred. LEFT BREAST: No significant suspicious finding. No significant change has occurred. RECOMMENDATIONS: ROUTINE MAMMOGRAM AND CLINICAL EVALUATION IN 12 MONTHS. PLEASE NOTE: A NORMAL MAMMOGRAM DOES NOT EXCLUDE THE POSSIBILITY OF BREAST CANCER. A CLINICALLY SUSPICIOUS PALPABLE LUMP SHOULD BE BIOPSIED. Dictated by: Tee Price M.D. on 09/26/2024 at 11:39 Approved by: Tee Price M.D. on 09/26/2024 at 11:44
== END 2024-09-26 06:51 | disposition home or self-care (01) ==
LOC: MAMMO 06:50
PROVIDERS: PCP Family Medicine; Visit Provider Family Medicine
DX: Z12.31 Encounter for screening mammogram for malignant neoplasm of breast (principal); Z80.6 Family history of leukemia; Z80.42 Family history of malignant neoplasm of prostate
CPT/HCPCS: 77063; 77067

== ENCOUNTER 2024-10-14 08:33 | Outpatient (OUT) | payer OTHER, SELFPAY ==
[2024-10-14 09:23] LABS: Free T3 2.03 pg/mL (2.18-3.98); Thyroid Stimulating Hormone 0.122 uIU/mL (0.358-3.740)
== END 2024-10-14 08:34 | disposition home or self-care (01) ==
LOC: LAB 08:34
PROVIDERS: PCP Family Medicine; Visit Provider Family Medicine
DX: E03.9 Hypothyroidism, unspecified (principal)
CPT/HCPCS: 36415; 84436; 84443; 84481

== ENCOUNTER 2025-02-04 12:24 | Outpatient (OUT) | payer OTHER, SELFPAY ==
--- NOTE | 2025-02-04 12:33 | XR_ITS ---
The [place] [id number] Patient Name: EMILY LAWTON MRN: [id number] date: 1960 Sex: F Assigned Patient Location: [facility] Current Patient Location: [facility] Accession/Order Number: [id number] Exam Date: 02/04/2025 13:40 Report Date: 02/04/2025 13:45 At the request of: MIKEL PELAYO MD Procedure: XR lumbar spine 2-3V 2 view Lumbar Spine HISTORY: Low back and hip pain. COMPARISON: None POSTSURGICAL CHANGES: None BONY ALIGNMENT: Mild scoliosis. Mild straightening HYPERMOBILITY:No bending imaging. LISTHESIS:Mild degenerative listhesis FRACTURE: None DEGENERATIVE CHANGES: Extensive multilevel lumbar spondylosis. Extensive multilevel facet degeneration SOFT TISSUES: Unremarkable BONY MINERALIZATION:Adequate XR/XR lumbar spine 2-3V IMPRESSION: Extensive degenerative changes. Scoliosis. No acute fracture. Impression dictated by: Shade Srinivasan M.D.02/04/2025 1:45 PM Dictation Location: [facility] Electronically authenticated by: [id number] Y Date: 02/04/2025 13:45
--- NOTE | 2025-02-04 12:33 | XR_ITS ---
[place] [id number] Patient Name: EMILY LAWTON MRN: [id number] date: 1960 Sex: F Assigned Patient Location: [facility] Current Patient Location: [facility] Accession/Order Number: [id number] Exam Date: 02/04/2025 13:20 Report Date: 02/04/2025 13:22 At the request of: MIKEL PELAYO MD Procedure: XR hip RT min 2V 2 views right plain film COMPARISON: 10/21/2020 HISTORY: Low back pain ACUTE FINDINGS: None DEGENERATIVE CHANGE: Unremarkable SOFT TISSUE FINDINGS: Unremarkable JOINT EFFUSION: None POSTOP CHANGES: None BONY MINERALIZATION: Adequate XR/XR hip RT min 2V IMPRESSION: Stable hip without significant degeneration or acute bony findings. Impression dictated by: Shade Srinivasan M.D.02/04/2025 1:22 PM Dictation Location: [place] [address] Electronically authenticated by: [id number] Y Date: 02/04/2025 13:22
== END 2025-02-04 12:25 | disposition home or self-care (01) ==
LOC: RAD 12:26
PROVIDERS: PCP Family Medicine; Visit Provider Family Medicine
DX: M54.50 Low back pain, unspecified (principal); M51.369 Other intervertebral disc degeneration, lumbar region without mention of lumbar back pain or lower extremity pain
CPT/HCPCS: 72100; 73502

== ENCOUNTER 2025-02-19 09:18 | Outpatient (OUT) | payer OTHER, SELFPAY ==
--- NOTE | 2025-02-19 09:22 | MR_ITS ---
[address] [address] Patient Name: EMILY LAWTON MRN: [id number] date: 1960 Sex: F Assigned Patient Location: MRI Current Patient Location: MRI Accession/Order Number: [id number] Exam Date: 02/19/2025 14:11 Report Date: 02/19/2025 14:17 At the request of: MIKEL PELAYO MD Procedure: MR lumbar spine wo con MRI Lumbar Spine withoutcontrast TECHNIQUE: Multiplanar T1 and T2-weighted imaging of lumbar spine obtained without contrast. HISTORY: Chronic back pain COMPARISON: Plain film 02/04/2025 The last fully segmented vertebral pair is operationally defined as L5/S1. POST SURGERY CHANGES: None BONE MARROW INFILTRATION: None BONE MARROW EDEMA: None BONY ALIGNMENT: Mild straightening with scoliosis SPINAL CANAL: Multilevel LUMBAR FRACTURE: None BONY LESIONS: None KIDNEYS: No hydronephrosis is identified. AORTA: No aortic aneurysm is seen. CONUS MEDULLARIS : The distal spinal cord is in adequate position without abnormality. Additional findings CONJOINED NERVE ROOT: None Lower thoracic level: Mild spondylosis. Mild diffuse disc bulges. L1-2 :Mild disc space narrowing. Diffuse disc bulge. Mild to moderate central canal stenosis. Posterior element hypertrophy. Mild bilateral neural foraminal narrowing L2-3: Marked disc space narrowing and endplate spurring. Diffuse disc bulge and left paracentral disc protrusion moderate to severe central canal stenosis. Posterior element hypertrophy. Moderate bilateral neural foraminal narrowing L3-4: Marked disc space narrowing. Endplate changes. Endplate spurring. Diffuse disc bulge. Severe central canal stenosis. Posterior element hypertrophy. Moderate to severe right and moderate left neural foraminal narrowing L4-5: Moderate disc space narrowing. Diffuse disc bulge. Moderate to severe central canal stenosis. Posterior element hypertrophy. Marked bilateral neural foraminal narrowing. L5-S1: Mild disc space narrowing. Diffuse disc bulge. Mild central canal stenosis. Posterior element hypertrophy. Mild bilateral neural foraminal narrowing MR/MR lumbar spine wo con IMPRESSION: Multilevel discovertebral degenerative changes. Moderate to severe central canal stenoses as above. Neural foraminal narrowing as above. Pre-MRI plain film assessment: None Impression dictated by: Shade Srinivasan M.D.02/19/2025 2:17 PM Dictation Location: [place] [address] Electronically authenticated by: [id number] Y Date: 02/19/2025 14:17
--- OUTSIDE RECORDS SUMMARY | 2025-02-19 09:25 | XMS_ITS | CCD ---
Author Organization [facility] Care Team Providers Care Community Relations Coordinator Name Role Phone GITA ., DR MORIN [...] INSULINon 02-06-2023 Insulin 14.0 uIU/mL Normal 2.6-24.9 [facility] Comment on above: Performed By: #### I NSULIN #### [facility] [address] [place] [address] Dr. Marium Murillo CBC AUTO DIFFon 02-05-2023 BASO # 0.0 103/ul Normal 0.0-0.1 [facility] Comment on above: Performed By: #### C BC #### [facility] [address] [place] [address] Dr. Marium Murillo Basophils/100 WBC (Bld) 0.3 % Normal 0.2-2.0 [facility] Comment on above: Performed By: #### C BC #### [facility] [address] [place] [address] Dr. Marium Murillo EO # 0.2 103/ul Normal 0.0-0.7 [facility] Comment on above: Performed By: #### C BC #### [facility] [address] [place] [address] Dr. Marium Murillo Eosinophils/100 WBC (Bld) 3.5 % Normal 0.9-7.0 [facility] Comment on above: Performed By: #### C BC #### [facility] [address] [place] [address] Dr. Marium Murillo Erythrocyte distribution width (RBC) [Ratio] 13.1 % Normal 11.0-15.0 [facility] Comment on above: Performed By: #### C BC #### [facility] [address] [place] [address] Dr. Marium Murillo Hematocrit (Bld) [Volume fraction] 41.6 % Normal 36.0-48.0 [facility] Comment on above: Performed By: #### C BC #### [facility] [address] [place] [address] Dr. Marium Murillo Hemoglobin (Bld) [Mass/Vol] 13.4 g/dL Normal 12.0-16.0 [facility] Comment on above: Performed By: #### C BC #### [facility] [address] [place] [address] Dr. Marium Murillo IG # 0.03 10e3/ul Normal 0.00-0.03 [facility] Comment on above: Performed By: #### C BC #### [facility] [address] [place] [address] Dr. Marium Murillo IG % 0.5 % Normal 0.0-0.5 [facility] Comment on above: Performed By: #### C BC #### [facility] [address] [place] [address] Dr. Marium Murillo LYMPH # 1.5 103/ul Normal 1.2-3.8 [facility] Comment on above: Performed By: #### C BC #### [facility] [address] [place] [address] Dr. Marium Murillo Lymphocytes/100 WBC (Bld) 23.8 % Normal 20.5-60.0 [facility] Comment on above: Performed By: #### C BC #### [facility] [address] [place] [address] Dr. Marium Murillo MANUAL DIFF REQ NO Normal [facility] Comment on above: Performed By: #### C BC #### [facility] [address] [place] [address] Dr. Marium Murillo MCH (RBC) [Entitic mass] 28.8 pg Normal 26.7-34.0 [facility] Comment on above: Performed By: #### C BC #### [facility] [address] [address] [address] Marium Murillo MCHC (RBC) [Mass/Vol] 32.2 g/dL Normal 29.9-35.2 [facility] Comment on above: Performed By: #### C BC #### [facility] [address] [address] [address] Marium Murillo MCV (RBC) [Entitic vol] 89.3 fL Normal 81.0-99.0 [facility] Comment on above: Performed By: #### C BC #### [facility] [address] [place] [address] Dr. Marium Murillo MONO # 0.8 103/ul Normal 0.3-0.8 [facility] Comment on above: Performed By: #### C BC #### [facility] [address] [place] [address] Dr. Marium Murillo Monocytes/100 WBC (Bld) 12.2 % Critically high 1.7-12.0 [facility] Comment on above: Performed By: #### C BC #### [facility] [address] [place] [address] Dr. Marium Murillo NEUT # 3.8 103/ul Normal 1.4-6.5 [facility] Comment on above: Performed By: #### C BC #### [facility] [address] [place] [address] Dr. Marium Murillo Neutrophils/100 WBC (Bld) 59.7 % Normal 43.0-75.0 [facility] Comment on above: Performed By: #### C BC #### [facility] [address] [address] [address] Marium Murillo Platelet mean volume (Bld) [Entitic vol] 13.3 fL Normal 9.5-13.5 [facility] Comment on above: Performed By: #### C BC #### [facility] [address] [place] [address] Dr. Marium Murillo PLT 172 103/ul Normal 150-450 [facility] Comment on above: Performed By: #### C BC #### [facility] [address] [address] [address] Marium Murillo RBC 4.66 106/ul Normal 4.20-5.40 [facility] Comment on above: Performed By: #### C BC #### [facility] [address] [address] [address] Marium Murillo WBC 6.3 103/ul Normal 4.0-11.0 [facility] Comment on above: Performed By: #### C BC #### [facility] [address] [address] [address] Marium Murillo FREE THYROXINE INDEX T7on FTI 1.51 Normal 1.30-4.50 [facility] Comment on above: Performed By: #### T SH, LIPID, CMP, T7 ####[facility] [address] [address]Dr. Marium Murillo T3U 35.0 % Normal 30.0-39.0 [facility] Comment on above: Performed By: #### T SH, LIPID, CMP, T7 ####[facility] [address] [address]Dr. Marium Murillo T4 [Mass/Vol] 4.30 ug/dL Critically low 4.80-13.90 [facility] Comment on above: Performed By: #### T SH, LIPID, CMP, T7 ####[facility] [address] [address]Dr. Marium Murillo GLYCOHEMOGLOBIN A1Con 2022 ADA RECOMMENDATION SEE BELOW Normal [facility] Comment on above: Result Comment: ADA RECOMMENDED LIMIT 4.0 - 6.0 ADA THERAPEUTIC TARGET < 7.0 ACTION SUGGESTED > 7.0 Performed By: #### A 1C #### [facility] [address] [address] [address] Marium Murillo Glucose [Mass/Vol] 111 mg/dL Normal [facility] Comment on above: Performed By: #### A 1C #### [facility] [address] [address] [address] Marium Murillo HbA1c (Bld) [Mass fraction] 5.5 % Normal 4.5-6.2 [facility] Comment on above: Performed By: #### A 1C #### [facility] [address] [address] [address] Marium Murillo IRONon 02-05-2023 Iron [Mass/Vol] 72.0 ug/dL Normal 50.0-170.0 [facility] Comment on above: Performed By: #### V ITAD, IRON #### [facility] [address] [address] [address] Marium Murillo LIPID PROFILEon 02-05-2023 CHOL-HDL RATIO NORM SEE BELOW Normal [facility] Comment on above: Result Comment: 3.3 - 4.4 LOW RISK 4.4 - 7.1 AVERAGE RISK 7.1 - 11.0 MODERATE RISK >11.0 HIGH RISK Performed By: #### T SH, LIPID, CMP, T7 ####[facility] [address] [address]Dr. Marium Murillo Cholesterol [Mass/Vol] 179 mg/dL Normal <=200 [facility] Comment on above: Performed By: #### T SH, LIPID, CMP, T7 ####[facility] [address] [address]Dr. Marium Murillo Cholesterol in HDL [Mass/Vol] 46 mg/dL Normal 40-60 [facility] Comment on above: Performed By: #### T SH, LIPID, CMP, T7 ####[facility] [address] [address]Dr. Marium Murillo Cholesterol in LDL [Mass/Vol] 105.6 mg/dL Normal [facility] Comment on above: Performed By: #### T SH, LIPID, CMP, T7 ####[facility] [address] [address]Dr. Marium Murillo Cholesterol.total/Ch olesterol in HDL [Mass ratio] 3.9 {ratio} Normal [facility] Comment on above: Performed By: #### T SH, LIPID, CMP, T7 ####[facility] [address] [address]Dr. Marium Murillo HDL NORMAL > or = 60 mg/dl - LO W CARDIOVASCULAR RISK <40 mg/dl - HIGH CARDIOVASCULAR RISK Normal [facility] Comment on above: Performed By: #### T SH, LIPID, CMP, T7 ####[facility] [address] [address]Dr. Marium Murillo LDL CALC NORMAL SEE BELOW Normal [facility] Comment on above: Result Comment: <100 mg/dl OPTIMAL 100 - 129 mg/dl NEAR OR ABOVE OPTIMAL 130 - 159 mg/dl BORDERLINE HIGH 160 - 189 mg/dl HIGH >190 mg/dl VERY HIGH Performed By: #### T SH, LIPID, CMP, T7 ####[facility] [address] [address]Dr. Marium Murillo Triglyceride [Mass/Vol] 137 mg/dL Normal <=150 [facility] Comment on above: Performed By: #### T SH, LIPID, CMP, T7 ####[facility] [address] [address]Dr. Marium Murillo VLDL CALC 27.4 mg/dL Normal [facility] Comment on above: Performed By: #### T SH, LIPID, CMP, T7 ####[facility] [address] [address]Dr. Marium Murillo PROF 14(COMP METB)on 023 Albumin [Mass/Vol] 3.5 g/dL Normal 3.4-5.0 [facility] Comment on above: Performed By: #### T SH, LIPID, CMP, T7 ####[facility] [address] [address]Dr. Marium Murillo Albumin/Globulin [Mass ratio] 1.0 {ratio} Normal [facility] Comment on above: Performed By: #### T SH, LIPID, CMP, T7 ####[facility] [address] [address]Dr. Marium Murillo ALP [Catalytic activity/Vol] 84 U/L Normal 46-116 [facility] Comment on above: Performed By: #### T SH, LIPID, CMP, T7 ####[facility] [address] [address]Dr. Marium Murillo ALT [Catalytic activity/Vol] 32 U/L Normal 14-59 [facility] Comment on above: Performed By: #### T SH, LIPID, CMP, T7 ####[facility] [address] [address]Dr. Marium Murillo Anion gap [Moles/Vol] 8.2 mmol/L Normal [facility] Comment on above: Performed By: #### T SH, LIPID, CMP, T7 ####[facility] [address] [address]Dr. Marium Murillo AST [Catalytic activity/Vol] 27 U/L Normal 15-37 [facility] Comment on above: Performed By: #### T SH, LIPID, CMP, T7 ####[facility] [address] [address]Dr. Marium uMrillo Bilirubin [Mass/Vol] 0.4 mg/dL Normal 0.2-1.0 [facility] Comment on above: Performed By: #### T SH, LIPID, CMP, T7 ####[facility] [address] [address]Dr. Marium Murillo Calcium [Mass/Vol] 9.2 mg/dL Normal 8.5-10.1 [facility] Comment on above: Performed By: #### T SH, LIPID, CMP, T7 ####[facility] [address] [address]Dr. Marium Murillo Chloride [Moles/Vol] 107 mmol/L Normal 98-107 [facility] Comment on above: Performed By: #### T SH, LIPID, CMP, T7 ####[facility] [address] [address]Dr. Marium Murillo CO2 [Moles/Vol] 31.9 mmol/L Normal 21.0-32.0 [facility] Comment on above: Performed By: #### T SH, LIPID, CMP, T7 ####[facility] [address] [address]Dr. Marium Murillo Creatinine [Mass/Vol] 0.59 mg/dL Normal 0.55-1.02 [facility] Comment on above: Performed By: #### T SH, LIPID, CMP, T7 ####[facility] [address] [address]Dr. Marium Murillo EGFR-AF PAKISTANI >60 Normal >=60 [facility] Comment on above: Performed By: #### T SH, LIPID, CMP, T7 ####[facility] [address] [address]Dr. Marium Murillo EGFR-NON AF PAKISTANI >60 Normal >=60 [facility] Comment on above: Performed By: #### T SH, LIPID, CMP, T7 ####[facility] [address] [address]Dr. Marium Murillo Globulin (S) [Mass/Vol] 3.6 g/dL Normal [facility] Comment on above: Performed By: #### T SH, LIPID, CMP, T7 ####[facility] [address] [address]Dr. Marium Murillo Glucose [Mass/Vol] 91 mg/dL Normal 74-106 [facility] Comment on above: Performed By: #### T SH, LIPID, CMP, T7 ####[facility] [address] [address]Dr. Marium Murillo Potassium [Moles/Vol] 4.1 mmol/L Normal 3.5-5.1 [facility] Comment on above: Performed By: #### T SH, LIPID, CMP, T7 ####[facility] [address] [address]Dr. Marium Murillo Protein [Mass/Vol] 7.1 g/dL Normal 6.4-8.2 [facility] Comment on above: Performed By: #### T SH, LIPID, CMP, T7 ####[facility] [address] [address]Dr. Marium Murillo Sodium [Moles/Vol] 143 mmol/L Normal 136-145 [facility] Comment on above: Performed By: #### T SH, LIPID, CMP, T7 ####[facility] [address] [place], [place] [address]Mz. Marium Murillo Urea nitrogen [Mass/Vol] 21.0 mg/dL Critically high 7.0-18.0 [facility] Comment on above: Performed By: #### T SH, LIPID, CMP, T7 ####[facility] [address] [place], [place] [address]Aq. Marium Murillo Urea nitrogen/Creatinine [Mass ratio] 35.6 mg/mg Normal [facility] Comment on above: Performed By: #### T SH, LIPID, CMP, T7 ####[facility] [address] [place], [place] [address]Fn. Marium Murillo TSHon 02-05-2023 TSH 0.666 uIU/mL Normal 0.358-3.740 [facility] Comment on above: Performed By: #### T SH, LIPID, CMP, T7 #### [facility] [address] [address] [address] Marium Murillo VITAMIN D 25 OHon 02-05-2023 VIT D 25-OH 26.2 ng/mL Normal [facility] Comment on above: Performed By: #### Patricia CLEVELAND IRON #### [facility] [address] [place] [address] Dr. Marium Murillo VIT D RANGES SEE BELOW Normal [facility] Comment on above: Result Comment: <20 ng/mL Vit D deficient 20 - <30 ng/mL Vit D insufficient 30 - 100 ng/mL Vit D sufficient >100 ng/mL Potential Toxicity Performed By: #### Patricia CLEVELAND, IRON #### [facility] [address] [place] [address] Dr. Marium Murillo Covid-19 PCR ([facility])on 10-05 SARS-CoV-2 (COVID-19) RNA MICHELL+probe Ql (Unsp spec) Not detected Normal NOT DETECTED [facility] Comment on above: Result Comment: When diagnostic [...] for this test is supported by the Ambulance Operations Supervisor of Health and Human Service's declaration that [...] used). Performed By: #### C VDTB #### [facility] [address] [place] [address] Dr. Marium Murillo INFLUENZA A AND B AGon 10-23 INFLUBNEGH SEE BELOW Normal [facility] Comment on above: Result Comment: Nega tive for Flu B protein antigen. Infection due to Flu B cannot be ruled out. Flu B antigen in the sample may be below the detection limit of the test. Performed By: #### I NFLUAB #### [facility] [address] [place] [address] Dr. Marium Murillo INFLUENZA A AG Positive Abnormal NEGATIVE SEE COMMENT [facility] Comment on above: Performed By: #### I NFLUAB #### [facility] [address] [place] [address] Dr. Marium Murillo INFLUENZA B AG Negative Normal NEGATIVE SEE COMMENT [facility] Comment on above: Performed By: #### I NFLUAB #### [facility] [address] [place] [address] Dr. Marium Murillo INFLUPOSH SEE BELOW Normal [facility] Comment on above: Result Comment: NOTE : Live attenuated influenzae vaccine viruses can cause a positive result for a rapid influenza diagnostic test if administered up to 7 days prior to rapid testing. Performed By: #### I NFLUAB #### [facility] [address] [place] [address] Dr. Marium Murillo INTERNAL CONTROLS Within Normal Limits Normal Wi thin Normal Limits [facility] Comment on above: Performed By: #### I NFLUAB #### [facility] [address] [place] [address] Dr. Marium Murillo Covid-19 PCR ([facility])on 07-07 SARS-CoV-2 (COVID-19) RNA MICHELL+probe Ql (Unsp spec) Not detected Normal NOT DETECTED [facility] Comment on above: Result Comment: This test is not yet approved or cleared by the [place] FDA. When there are no FDA-approved or cleared tests available, and other criteria are met, FDA can make tests available under an emergency access mechanism called an Emergency Use Authorization (EUA). The EUA for this test is supported by the [place] of Health and Human Service's (HHS's) declaration [...] SARS-CoV-2. Performed By: #### C VDTB #### [facility] [address] [place] [address] Dr. Marium Murillo MG MAMM SCREEN 3D JOSÉ MIGUEL CADon 05-09-2022 MG MAMM SCREEN 3D JOSÉ MIGUEL CAD Patient: EMILY WATKINS Exam Date: 05/09/2022 : 1960 Gender:F Ordering : DR RICHARD FREEMAN . Admission #: [id number] Family : Order #: [id number] CLICK HERE TO VIEW EXAM RADIOLOGY REPORT [...] prostate cancer at age 50. LOCATION: [facility] BREAST COMPOSITION: Almost entirely fatty. FINDINGS: DIAGNOSTIC [...] Price M.D. on 05/11/2022 at 13:25 Normal [facility] 07-25-2021 CNPN Telephone ([facility]) EMILY CALLES ([id number]) 1960 F Date Time Provider Department 07/25/21 VINAY HALL [facility] During your visit today, we recorded the following information about you: Chanel Ward 07/25/2021 9:15 AM Signed Additional [place] paperwork from [employer] being faxed for completion. Patient saw Dr. Hall on and was cleared to return to work. However, her employer is redirecting her to [employer] for return clearance. New return to work date on 07/27/2021 Lalitha can be reached at [phone] with any questions. Chanel Richard [facility] Ivania Slater MA 07/25/2021 3:41 PM Signed Noted. I will drop off paperwork at [facility] so that Myra can have Dr. Hall sign off on and fax tomorrow. JUVENAL Carrillo MA 07/27/2021 2:46 PM Signed Employer Forms for Patient/Caregiver Time Off of Work Completed, signed by provider, and returned to below contact. Completed copy scanned in [facility] Date of Surgery: 06/24/2021 Estimated RTW date:07/25/2021 Employer: [employer] Date sent to employer: 07/27/2021 Received fax confirmation: YES Allergies As of Date: 07/25/2021 (No Known Allergies) Date Reviewed: 07/21/2021 Reviewed by: Vinay Hall MD - Fully Assessed Reason for Visit: FMLA Paperwork [9000] Prescriptions as of 07/27/2021 - oxyCODONE IR [...] Status:Closed by RODRÍGUEZ WILSON on 07/27/21 Normal [facility] CNCOon 07-22-2021 CNCO Letter Text Normal [facility] CNOVon 07-21-2021 CNOV Office Visit ([facility] ) EMILY CALLES ([id number]) 1960 F Date Time Provider Department 07/21/21 [...] MD Colorectal Surgery Referring Provider: VINAY HALL [[id number]] Allergies As of Date: 07/21/2021 (No Known [...] (TRICOR) 145 (more content not included)... Normal [facility] Consultation Noteon 06-29-20 Consultation Note [id number] :127 Normal [facility] EMILY CALLES ([id number]) 1960 F Date Time Provider Department 06/28/21 VINAY HALL [facility] During your visit today, we recorded the following information about you: Chanel Ward 06/28/2021 9:25 AM Signed Patient called with concerns of a itchy rash on her upper abdomen that has gotten bigger over the last few days. Noticed after her Lovenox injection. Patient can be reached at [phone]. Chanel Orta RN 06/28/2021 10:49 AM Signed Returned call and spoke with patient, S/p Laparoscopic Proctosigmoidectomy (Low Anterior Resection), Laparoscopic Mobilization of Splenic Flexure, Flexible Sigmoidoscopy, Laparoscopic Omental Pedicle Flap 06/24 Cc: rash to torso -pt c/o a red, raised, itchy rash to torso -pt states it was noticed Sunday evening before discharge from [facility] -denies chest pain or shortness of breath [...] Status:Closed by ЮЛИЯ ORTA on 06/28/21 Normal [facility] Telephone ([facility]) EMILY CALLES ([id number]) 1960 F Date Time Provider Department 06/28/21 ESTRELLITA MORA [facility] During your visit today, we recorded the following information about you: Estrellita Mora, Student 06/28/2021 11:19 AM Signed Record ID: [id number] Patient Name: [facility]: [facility] [place]: [facility] [place] Attending: Vinay Hall Center: Colorectal Surgery INSTRUCTIONS Continue with script and ensure patient has appropriate number for [facility] or Appointment Center according to discharging physician?s specialty and location at end of call SN TRANSFER TO [facility] SURVEY INFORMATION Medical/Nurse Carpenter Labor Supervisor: Luisa Gallagher 1. Your discharge instructions are [...] Status:Closed by ESTRELLITA MORA on 8/24/21 Normal [facility] Basic Metabolic Panlon 06-26 Anion gap [Moles/Vol] 9 mmol/L Normal 9-18 [facility] Comment on above: Performed By: #### B LEONCIO, CBCDIF #### [place] [phone] Calcium [Mass/Vol] 8.7 mg/dL Normal 8.5-10.5 [facility] Comment on above: Performed By: #### B LEONCIO, CBCDIF #### [phone] Chloride [Moles/Vol] 109 mmol/L Normal 98-110 [facility] Comment on above: Performed By: #### B LEONCIO, CBCDIF #### [place] [phone] CO2 [Moles/Vol] 25 mmol/L Normal 23-32 [facility] Comment on above: Performed By: #### B LEONCIO, CBCDIF #### [phone] Creatinine [Mass/Vol] 0.54 mg/dL Low 0.70-1.40 [facility] Comment on above: Performed By: #### B LEONCIO, CBCDIF #### [place] [phone] eGFR- Amer. >60 Normal >60 [facility] Comment on above: Performed By: #### B LEONCIO, CBCDIF #### [place] [phone] eGFR-All Other Races >60 Normal >60 [facility] Comment on above: Result Comment: eGFR [...] Performed By: #### B LEONCIO, CBCDIF #### [phone] Glucose [Mass/Vol] 78 mg/dL Normal 65-100 [facility] Comment on above: Performed By: #### B MP, CBCDIF #### [place] [phone] Potassium [Moles/Vol] 4.1 mmol/L Normal 3.5-5.0 [facility] Comment on above: Performed By: #### B LEONCIO, CBCDIF #### [place] [phone] Sodium [Moles/Vol] 143 mmol/L Normal 132-148 [facility] Comment on above: Performed By: #### B LEONCIO, CBCDIF #### [place] [phone] Urea nitrogen [Mass/Vol] 13 mg/dL Normal 8-25 [facility] Comment on above: Performed By: #### B LEONCIO, CBCDIF #### [place] [phone] CBC and Differentialon 06-26 Abs Baso <0.03 Normal <0.11 [facility] Comment on above: Performed By: #### B LEONCIO, CBCDIF #### [place] [phone] Abs [place] 0.71 k/uL Normal <0.87 [facility] Comment on above: Performed By: #### B LEONCIO, CBCDIF #### [place] [phone] Abs Neut 4.13 k/uL Normal 1.45-7.50 [facility] Comment on above: Performed By: #### B LEONCIO, CBCDIF #### [place] [phone] Absolute nRBC <0.01 Normal <0.01 [facility] Comment on above: Performed By: #### B MP, CBCDIF #### [address] Basophils/100 WBC (Bld) 0.3 % Normal [facility] Comment on above: Performed By: #### B MP, CBCDIF #### [place] [phone] DTYPE Auto Diff Normal [facility] Comment on above: Performed By: #### B MP, CBCDIF #### [address] Eosinophils (Bld) [#/Vol] 0.13 10*3/uL Normal <0.46 [facility] Comment on above: Performed By: #### B MP, CBCDIF #### [address] Eosinophils/100 WBC (Bld) 2.0 % Normal [facility] Comment on above: Performed By: #### B MP, CBCDIF #### [place] [phone] Erythrocyte distribution width (RBC) [Ratio] 12.6 % Normal 11.5-15.0 [facility] Comment on above: Performed By: #### B MP, CBCDIF #### [address] Hematocrit (Bld) [Volume fraction] 33.7 % Low 36.0-46.0 [facility] Comment on above: Performed By: #### B MP, CBCDIF #### [place] [phone] Hemoglobin (Bld) [Mass/Vol] 11.0 g/dL Low 11.5-15.5 [facility] Comment on above: Performed By: #### B MP, CBCDIF #### [place] [phone] Lymphocytes (Bld) [#/Vol] 1.49 10*3/uL Normal 1.00-4.00 [facility] Comment on above: Performed By: #### B MP, CBCDIF #### [phone] Lymphocytes/100 WBC (Bld) 23.0 % Normal [facility] Comment on above: Performed By: #### B MP, CBCDIF #### [place] [phone] MCH 29.4 pG Normal 26.0-34.0 [facility] Comment on above: Performed By: #### B MP, CBCDIF #### [place] [phone] MCHC (RBC) [Mass/Vol] 32.6 g/dL Normal 30.5-36.0 [facility] Comment on above: Performed By: #### B MP, CBCDIF #### [place] [phone] MCV (RBC) [Entitic vol] 90.1 fL Normal 80.0-100.0 [facility] Comment on above: Performed By: #### B MP, CBCDIF #### [phone] Monocytes/100 WBC (Bld) 11.0 % Normal [facility] Comment on above: Performed By: #### B MP, CBCDIF #### [place] [phone] Neutrophils/100 WBC (Bld) 63.7 % Normal [facility] Comment on above: Performed By: #### B MP, CBCDIF #### [place] [phone] NRBCs 0.0 /100 WBC Normal 0 [facility] Comment on above: Performed By: #### B MP, CBCDIF #### [place] [phone] Platelet mean volume (Bld) [Entitic vol] 13.5 fL High 9.0-12.7 [facility] Comment on above: Performed By: #### B MP, CBCDIF #### [place] [id number] [place] [address] Platelets (Bld) [#/Vol] 127 10*3/uL Low 150-400 [facility] Comment on above: Performed By: #### B MP, CBCDIF #### [place] [phone] RBC (Bld) [#/Vol] 3.74 10*6/uL Low 3.90-5.20 [facility] Comment on above: Performed By: #### B MP, CBCDIF #### [place] [phone] WBC (Bld) [#/Vol] 6.48 10*3/uL Normal 3.70-11.00 [facility] Comment on above: Performed By: #### B MP, CBCDIF #### [place] [address] CNDSon 06-26-2021 CNDS HNO ID: [id number] Author: Naa Garcia MD Service: Colorectal Author [...] AM Naa Garcia MD 10:04 PM Normal [facility] NURSING PROGon 06-26-2021 NURSING PROG HNO ID: [id number] Author: Mai Stevens RN Service: ? Author Type: Registered Nurse Type: Nursing Progress Note Filed: 06/26/2021 5:48 PM Note Text: Nursing Progress Note Patient Name: Emily Haywood Patient Location: -[id number] Daily Note: 0800: Patient awake in bed [...] This note was completed by: Mai Herndon [facility] NURSING PROG HNO ID: [id number] Author: Nely Anne RN Service: ? Author Type: Registered Nurse Type: Nursing Progress Note Filed: 06/26/2021 1:16 AM Note Text: Nursing Progress Note Patient Name: Emily Haywood Patient Location: [place] [address]-07 Daily Note:(late entry for 2199) Pt aANDox3 upon assessment. Lungs clear on room air. Bowel sounds present. Pt states she is passing flatus. Lap sites and transverse incision brissa with glue. Pt tolerating limited clears diet, no c/o n/v. Granado draining yellow,clear. PAS stockings on. Using dilaudid ANALYSIS MANAGER for pain. Safety maintained. Will continue to [...] This note was completed by: Nely Herndon [facility] Basic Metabolic Panlon 06-25 Anion gap [Moles/Vol] 8 mmol/L Low 9-18 [facility] Comment on above: Performed By: #### B LEONCIO, CBCDIF ####[place] [phone] Calcium [Mass/Vol] 9.3 mg/dL Normal 8.5-10.5 [facility] Comment on above: Performed By: #### B LEONCIO, CBCDIF ####[place] [phone] Chloride [Moles/Vol] 108 mmol/L Normal 98-110 [facility] Comment on above: Performed By: #### Rosy FANG, CBCDIF ####[place] [phone] CO2 [Moles/Vol] 25 mmol/L Normal 23-32 [facility] Comment on above: Performed By: #### B LEONCIO, CBCDIF ####[place] [phone] Creatinine [Mass/Vol] 0.52 mg/dL Low 0.70-1.40 [facility] Comment on above: Performed By: #### Rosy FANG, CBCDIF ####[place] [phone] eGFR- Amer. >60 Normal >60 [facility] Comment on above: Performed By: #### Rosy FANG, CBCDIF ####[place] [phone] eGFR-All Other Races >60 Normal >60 [facility] Comment on above: Result Comment: eGFR [...] GFR. Performed By: #### B MP, CBCDIF ####[place] [phone] Glucose [Mass/Vol] 104 mg/dL High 65-100 [facility] Comment on above: Performed By: #### B MP, CBCDIF ####[place] [phone] Potassium [Moles/Vol] 4.3 mmol/L Normal 3.5-5.0 [facility] Comment on above: Performed By: #### B MP, CBCDIF ####[place] [phone] Sodium [Moles/Vol] 141 mmol/L Normal 132-148 [facility] Comment on above: Performed By: #### B MP, CBCDIF ####[place] [phone] Urea nitrogen [Mass/Vol] 11 mg/dL Normal 8-25 [facility] Comment on above: Performed By: #### B MP, CBCDIF ####[facility] [place] [phone] CASE MGT INIT [facility] 2020 CASE MGT INIT [facility] HNO ID: [id number] Author: RAGHAV Hendricks Service: ? Author Type: Vp Corporate Development Type: Care Mgt Initial Assessment Filed: 06/25/2021 11:47 AM Note Text: CARE MANAGEMENT: ASSESSMENT AND DISCHARGE PLAN SERVICE DATE: June 25, 2021 SERVICE TIME: 11:42 AM PRIMARY CARE PHYSICIAN: Mikel Ruiz MD ADMISSION STATUS: Inpatient Needs Prior to Discharge: To Be Determined MEDICAL: [facility] CHOICE PLUS NETWORK GENERIC Patient/Refueling Rampman Stated Goals: To have reduction in symptoms;To have reduction in pain;To return home to life as it was Health Insurance: [facility] Health Issues Impacting Discharge Plan: Chronic (s/p laparoscopic hand assisted LAR) Chronic: sigmoid mass, hypothyroidism, IBD, mixed HLD, depression, morbid obese Last Discharge Date: 06/09/21 Is this Within the Past 30 days? Last discharge within 30 days: No Advance Directive: Current Advance Directive: Health Care Power of Manager Of Administration In Chart: Yes Up To Date and [...] None Has the Patient Been in a Chcf Facility in the Past 30 days?: No SOCIAL: Living Arrangements: Home Lives With: Spouse Financial Resources: Employed Primary Contact: Extended Emergency Contact Information Primary Emergency Contact: Gerry Hayowod [place] [employer] Relation: Spouse Supportive Patient Contact:: Yes [...] Completely I feel financially burdened by my [id number] expenses for my prescription medication:: 0 - Disagree Completely Risk Score: 0 Are you interested in bedside delivery of your medications? No Is Patient Psychosocially Complex?: No ASSESSMENT AND PLAN: Medical Needs: Medical Needs: Two or more chronic diseases Psychosocial Needs: Psychosocial Needs: None FREEDOM OF CHOICE EXPLAINED: [place] of Choice Given: No Reason Not Given: [...] 25, 2021 TIME: 11:40 AM PAGER/CONTACT #: [phone] Normal [facility] CBC and Differentialon 06-25 Abs Baso <0.03 Normal <0.11 [facility] Comment on above: Performed By: #### Rosy FANG CBCDIF ####[place] [address] Abs Eosin <0.03 Normal <0.46 [facility] Comment on above: Performed By: #### Rosy FANG CBCDIF ####[address] Abs [place] 1.10 k/uL High <0.87 [facility] Comment on above: Performed By: #### Rosy FANG CBCDIF ####[address] Abs Neut 8.30 k/uL High 1.45-7.50 [facility] Comment on above: Performed By: #### Rosy FANG CBCDIF ####[place] [address] Absolute nRBC <0.01 Normal <0.01 [facility] Comment on above: Performed By: #### Rosy FANG CBCDIF ####[address] Basophils/100 WBC (Bld) 0.1 % [facility] Comment on above: Performed By: #### Rosy FANG CBCDIF ####[address] DTYPE Auto Diff Normal [facility] Comment on above: Performed By: #### B MP, CBCDIF ####[place] [phone] Eosinophils/100 WBC (Bld) 0.0 % Normal [facility] Comment on above: Performed By: #### B MP, CBCDIF ####[place] [phone] Erythrocyte distribution width (RBC) [Ratio] 12.2 % Normal 11.5-15.0 [facility] Comment on above: Performed By: #### B MP, CBCDIF ####[place] [phone] Hematocrit (Bld) [Volume fraction] 35.8 % Low 36.0-46.0 [facility] Comment on above: Performed By: #### B MP, CBCDIF ####[place] [phone] Hemoglobin (Bld) [Mass/Vol] 11.5 g/dL Normal 11.5-15.5 [facility] Comment on above: Performed By: #### B MP, CBCDIF ####[place] [phone] Lymphocytes (Bld) [#/Vol] 0.86 10*3/uL Low 1.00-4.00 [facility] Comment on above: Performed By: #### B MP, CBCDIF ####[place] [phone] Lymphocytes/100 WBC (Bld) 8.4 % Normal [facility] Comment on above: Performed By: #### B MP, CBCDIF ####[place] [phone] MCH 29.0 pG Normal 26.0-34.0 [facility] Comment on above: Performed By: #### B MP, CBCDIF ####[place] [phone] MCHC (RBC) [Mass/Vol] 32.1 g/dL Normal 30.5-36.0 [facility] Comment on above: Performed By: #### B MP, CBCDIF ####[place] [phone] MCV (RBC) [Entitic vol] 90.4 fL Normal 80.0-100.0 [facility] Comment on above: Performed By: #### B MP, CBCDIF ####[phone] Monocytes/100 WBC (Bld) 10.7 % Normal [facility] Comment on above: Performed By: #### B MP, CBCDIF ####[phone] Neutrophils/100 WBC (Bld) 80.8 % Normal [facility] Comment on above: Performed By: #### B MP, CBCDIF ####[place] [phone] NRBCs 0.0 /100 WBC Normal 0 [facility] Comment on above: Performed By: #### B MP, CBCDIF ####[phone] Platelet mean volume (Bld) [Entitic vol] 13.4 fL High 9.0-12.7 [facility] Comment on above: Performed By: #### B MP, CBCDIF ####[place] [phone] Platelets (Bld) [#/Vol] 144 10*3/uL Low 150-400 [facility] Comment on above: Performed By: #### B MP, CBCDIF ####[place] [phone] RBC (Bld) [#/Vol] 3.96 10*6/uL Normal 3.90-5.20 [facility] Comment on above: Performed By: #### B MP, CBCDIF ####[place] [phone] WBC (Bld) [#/Vol] 10.27 10*3/uL Normal 3.70-11.00 [facility] Comment on above: Performed By: #### B LEONCIO, CBCDIF ####[facility] [place], [place] [phone] NURSING PROGon 06-25-2021 NURSING PROG HNO ID: [id number] Author: Fatoumata Goyal RN Service: ? Author Type: Registered Nurse Type: Nursing Progress Note Filed: 06/25/2021 4:41 AM Note Text: Nursing Progress Note Patient Name: Emily Haywood [facility] [place] [address] Transfer Note: 2020 (late entry): Patient transferred into room/unit AD6P-61 in stable condition. Actions taken: No futher actions taken at this time. Will continue to monitor and check with patient. Pt alert and oriented, weaned off O2, satting 96% on RA. Bowel sounds hypoactive x 4 quadrants. Dilaudid ANALYSIS MANAGER pump at 0.2 6 10. Transverse incision and laparoscopic sites BRISSA with glue, no drainage. Granado draining clear yellow urine. ODETTE on the Right draining bloody. 0441: Text paged surgery [id number] Emily Calles. Pt automatic BP 95/49 and manual is 99/39. Just wanted to make aware. Thanks. Fatoumata [phone] This note was completed by: Fatoumata Goyal [facility] ANES POSTPROC EVALon 021 ANES POSTPROC EVAL HNO ID: [id number] Author: Chaz Mckeon MD Service: Anesthesiology Author [...] June 24, 2021 TIME: 7:03 PM CSN: [id number] [facility] ANES PRE-OPon 06-24-2021 ANES PRE-OP HNO ID: [id number] Author: Fidel Grant DO Service: Anesthesiology Author [...] June 24, 2021 TIME: 12:25 PM CSN: [id number] [facility] BRIEF OP NOTon 06-24-2021 BRIEF OP NOT HNO ID: [id number] Author: Naa Garcia MD Service: Colorectal Author Type: Resident Type: Brief Op Note Filed: 06/24/2021 5:48 PM Note Text: BRIEF OPERATIVE NOTE - COLORECTAL SURGERY Log ID: [id number] Surgery/Procedure Date: 06/24/2021 Incision/Procedure Start Time: 2:17 PM Incision Close/Procedure End Time: 5:37 PM Surgeon(s) and Carpenter Labor Supervisor(s): Surgeon(s) and Role: * Vinay Hall MD [...] DATE: June 24, 2021 TIME: 5:43 PM [facility] HISTORY PHYSICALon HISTORY PHYSICAL HNO ID: [id number] Author: Naa Garcia MD Service: Colorectal Author [...] June 24, 2021 TIME: 12:44 PM Normal [facility] NURSING PROGon 06-24-2021 NURSING PROG HNO ID: [id number] Author: Silva Hernandez RN Service: Nursing Author [...] (RECOMMENDATION): None Electronically Signed By: Silva Hernandez [facility] OPERATIVE NOon 06-24-2021 OPERATIVE NO HNO ID: [id number] Author: Vinay Hall MD Service: Colorectal Author Type: Physician Type: Operative Report Filed: 06/24/2021 5:45 PM Note Text: COLON AND RECTAL SURGERY OPERATIVE REPORT PATIENT NAME: Emily Haywood ADMISSION DATE: 06/24/2021 LOG ID: [id number] SURGERY/PROCEDURE DATE: 06/24/2021 INCISION/PROCEDURE START TIME: 2:17 PM INCISION CLOSE/PROCEDURE END TIME: 5:37 PM AGE: [age] year old SEX: female SURGEON(S)/PROCEDURALIS T(S) AND MOLDING ENGINEER(S): Surgeon(s) and Role: * Vinay Hall MD [...] was irrig (more content not included)... Normal [facility] SURGICAL PATHOLOGYon 021 SURGICAL PATHOLOGY Specimen originated from [facility] Specimen #: [id number] Submitting Physician: VINAY HALL MD FINAL DIAGNOSIS [...] examination only. (Oshilaja) Intraoperative diagnosis performed at [facility], [address] [address], [place] [address] GROSS DESCRIPTION A. Received fresh designated sigmoid [...] 0.8 cm. The bowel does lie flat. Refueling Rampman sections are submitted as follows: A1 proximal [...] hyperemic. The wall thickness is 0.2 cm. Refueling Rampman sections are submitted in one cassette. Deanna 06/27/2021 Gross examination performed at [facility], [address] [place] [address] Date of Report: 06/29/2021 Date of Procedure: 06/24/2021 Date of Receipt: 06/24/2021 Submitted by: VINAY HALL MD Location: [facility] Diagnostic interpretation performed at [facility], [address] [place] [address].CLIA Number: [id number] [facility] Frank 06-23-2021 CNPN Telephone ([facility]) EMILY CALLES ([id number]) 1960 F Date Time Provider Department 06/23/21 VINAY HALL [facility] During your visit today, we recorded the following information about you: Melissa Kimball Pss 06/23/2021 8:52 AM Signed Patient called regarding FMLA return call to [phone] Ivania Slater MA 06/23/2021 9:08 AM Signed Called the patient. Patient wanted to know if FMLA paperwork from [employer] was completed yet and faxed because she is calling [employer] and sending emails and has not received a call or email advising if they received the paperwork. I advised the patient that I completed the paperwork and faxed it to [employer] [phone], 17 pages and confirmation received. Patient verbally understood. If any further problems or questions advised that patient or her HR department can call me. JUVENAL Carrillo [facility] 06/29/2021 11:42 AM Signed Received voicemail from patient. Anamika, at [employer], called patient and needs more information regarding her time off in order to pay her. Anamika can be reached at [phone]. Please call Lalitha after with an update, . Chanel Richard [facility] Ivania Slater MA 06/29/2021 12:11 PM Signed Called Anamika at [employer]. Left a voicemail to return call. Ivania Slater MA 06/29/2021 1:27 PM Signed Return to work date corrected to reflect 08/05/21.Faxed correction to [employer] [phone]. Confirmation received. Scanned to patient chart. Called Anamika at [facility] left a message on her voicemail advising of the above. Called patient Lalitha and left a message on her voicemail advising of the above. Ivania Slater MA Allergies As of Date: 06/23/2021 (No Known Allergies) Date Reviewed: 06/17/2021 Reviewed by: Dawna Leyva APRN.TRANSCRIBING OPERATOR HEAD - Fully Assessed Reason for Visit: FMLA [...] Status:Closed by IVANIA SLATER on 06/23/21 Normal [facility] Self Check COVIDon 1 SARS-CoV-2 (COVID-19) RNA MICHELL+probe Ql (Unsp spec) UPPER RESPIRATORY TRACT SWAB Normal [facility] Comment on above: Performed By: #### P REALB #### [address] [place], [place] [address] SARS-CoV-2 (COVID-19) RNA MICHELL+probe Ql (Unsp spec) Negative for COVID19 (SARS CoV2) by RT-PCR or equivalent method. Normal Negative for COVID19 (SARS CoV2) by RT-PCR or equivalent method. [facility] Comment on above: Result Comment: This test was developed and its performance characteristics determined by [facility] [place]. This test has been authorized by FDA under an Emergency Use Authorization (EUA). This test has been validated in accordance with the FDA's Guidance Document Policy for Diagnostics Testing in Laboratories Certified to Perform High Complexity Testing under CLIA prior to Emergency use Authorization for Coronavirus Disease 2019 during the Public Health Emergency issued on January 03, 2020. Test performed by [facility], [facility] [place], [address] [place] [address]. Performed By: #### P REALB #### [place] [address] Confirm Blood Typeon 021 ABO/RH(D) Positive Normal [facility] Comment on above: Performed By: #### C ONABO ####[facility] [place], [place] [phone] HISTORY PHYSICALon HISTORY PHYSICAL HNO ID: [id number] Author: Dawna Leyva APRN.TRANSCRIBING OPERATOR HEAD Service: ? Author Type: Nurse Practitioner Type: [...] CAD, chest pain, CHF, DVT/PE, hypertension, recent ID and murmur/valvular heart disease. GI: SEE HPI : Positive for: nocturia >1 time per night. Negative for: dysuria, frequent urination, hematuria, nephrolithiasis, renal failure, urgency and urinary tract infection. PERSONAL VEHICLE ADVISOR: Negative for abnormal vaginal bleeding, abnormal vaginal [...] again (more content not included)... Normal [facility] Type and SCR (30D)on 021 ABO/RH(D) Positive Normal [facility] Comment on above: Performed By: #### T SCR30 ####[facility] [place], [place] [phone] [facility] 06-13-2021 [facility] Telephone ([facility]) EMILY CALLES ([id number]) 1960 F Date Time Provider Department 06/13/21 VINAY HALL [facility] During your visit today, we recorded the following information about you: Josefa Mancini 06/13/2021 8:22 AM Signed Received FMLA/STD paperwork on 06/13/21 Pending physician signature and completion. Surgeon: Dr. Hall Date of Surgery (if known): 06/24/21 Ivania Slater MA 06/14/2021 12:07 PM Signed FMLA paperwork completed and faxed to [facility] at [phone]. Confirmation received. Scanned to patient chart. JUVENAL Carrillo MA 06/29/2021 8:19 AM Signed Also received FMLA paperwork on 06/28/21 from Zuri Irby at [employer]. . . Employer Forms for Patient/Caregiver Time Off of Work Completed, signed by provider, and returned to below contact. Completed copy scanned in [facility] Date of Surgery: 06/24/21 Estimated RTW date:07/06/21 Employer: [facility] [facility] Date sent to employer: 06/29/21 Received fax confirmation: YES Allergies As of Date: 06/13/2021 (No Known Allergies) Date Reviewed: 06/09/2021 Reviewed by: Evangelina Benson RN - Fully Assessed Reason for Visit: FMLA Paperwork [8651] Prescriptions as of 06/29/2021 - enoxaparin (LOVENOX) [...] Status:Closed by IVANIA SLATER on 06/14/21 Normal [facility] HISTORY PHYSICALon HISTORY PHYSICAL HNO ID: [id number] Author: Narcisa Prakash PA-C Service: Orthopaedic Surgery Author Type: Physician Carpenter Labor Supervisor Type: HANDP Filed: 06/09/2021 12:02 PM Note [...] 09, 2021 TIME: 11:56 AM PAGER: Normal [facility] SURGICAL PATHOLOGYon 021 SURGICAL PATHOLOGY Specimen originated from [facility] Specimen #: [id number] Submitting Physician: VINAY HALL MD FINAL DIAGNOSIS [...] in one cassette. Gross examination performed at [facility], [address] [place] [address] TTN 06/09/2021 9:17:28 PM Date of Report: 06/13/2021 Date of Procedure: 06/09/2021 Date of Receipt: 06/09/2021 Submitted by: VINAY HALL MD Location: [facility] Diagnostic interpretation performed at [facility], [address] [place] [address], [place] [address]. CLIA Number: [id number] Normal [facility] Comment on above: Performed By: #### S #### See report for performing lab information. [facility] EMILY CALLES ([id number]) 1960 F Date Time Provider Department 06/03/21 VINAY HALL [facility] During your visit today, we recorded [...] By: Myra Fuentes RN BSN DDSI Specialty Data Entry Specialist Myra Fuentes RN 06/03/2021 12:21 PM Signed Addended by: MYRA FUENTES on: 06/03/2021 12:21 PM Modules accepted: Orders Allergies As of Date: 06/03/2021 (No Known Allergies) Date Reviewed: 06/02/2021 Reviewed by: Vinay Hall MD - Fully Assessed Reason for Visit: Pre-Op Teaching [134] Schedule Surgery [1330] Primary Visit Diagnosis:Polyp of colon, unspecified part of colon, unspecified type [K63.5] Order(s):SIGMOIDOSCOPY [2369673] Order #: [id number] FUTURE neomycin 500 mg tabletTake 2 tablets [...] Status:Closed by MYRA FUENTES on 06/03/21 Normal [facility] CBC and Differentialon 06-02 Abs Baso <0.03 Normal <0.11 [facility] Comment on above: Performed By: #### P REALB #### [place] [address] [place] [phone] Abs [place] 0.73 k/uL Normal <0.87 [facility] Comment on above: Performed By: #### P REALB #### [place] [phone] Abs Neut 3.93 k/uL Normal 1.45-7.50 [facility] Comment on above: Performed By: #### P REALB #### [place] [phone] Absolute nRBC <0.01 Normal <0.01 [facility] Comment on above: Performed By: #### P REALB #### [place] [phone] Basophils/100 WBC (Bld) 0.3 % Normal [facility] Comment on above: Performed By: #### P REALB #### [place] [phone] DTYPE Auto Diff Normal [facility] Comment on above: Performed By: #### P REALB #### [place] [phone] Eosinophils (Bld) [#/Vol] 0.21 10*3/uL Normal <0.46 [facility] Comment on above: Performed By: #### P REALB #### [place] 4[address] [place] [address] Eosinophils/100 WBC (Bld) 3.2 % Normal [facility] Comment on above: Performed By: #### P REALB #### [place] [phone] Erythrocyte distribution width (RBC) [Ratio] 12.5 % Normal 11.5-15.0 [facility] Comment on above: Performed By: #### P REALB #### [place] [phone] Hematocrit (Bld) [Volume fraction] 42.6 % Normal 36.0-46.0 [facility] Comment on above: Performed By: #### P REALB #### [place] [phone] Hemoglobin (Bld) [Mass/Vol] 13.5 g/dL Normal 11.5-15.5 [facility] Comment on above: Performed By: #### P REALB #### [place] [phone] Lymphocytes (Bld) [#/Vol] 1.60 10*3/uL Normal 1.00-4.00 [facility] Comment on above: Performed By: #### P REALB #### [place] [address] Lymphocytes/100 WBC (Bld) 24.6 % Normal [facility] Comment on above: Performed By: #### P REALB #### [place] [phone] MCH 28.9 pG Normal 26.0-34.0 [facility] Comment on above: Performed By: #### P REALB #### [place] [address] MCHC (RBC) [Mass/Vol] 31.7 g/dL Normal 30.5-36.0 [facility] [facility] Comment on above: Performed By: #### P REALB #### [facility] [address] [place], [place] [address] MCV (RBC) [Entitic vol] 91.2 fL Normal 80.0-100.0 [facility] Comment on above: Performed By: #### P REALB #### [place] [address] [place], [place] [address] Monocytes/100 WBC (Bld) 11.2 % Normal [facility] Comment on above: Performed By: #### P REALB #### [address] [place], [place] [address] Neutrophils/100 WBC (Bld) 60.7 % Normal [facility] Comment on above: Performed By: #### P REALB #### [address] [place], [place] [address] NRBCs 0.0 /100 WBC Normal 0 [facility] Comment on above: Performed By: #### P REALB #### [address] [address] [place], [place] [address] Platelet mean volume (Bld) [Entitic vol] 12.7 fL Normal 9.0-12.7 [facility] Comment on above: Performed By: #### P REALB #### [place] [place], [place] [address] Platelets (Bld) [#/Vol] 171 10*3/uL Normal 150-400 [facility] Comment on above: Performed By: #### P REALB #### [address] [place], [place] [address] RBC (Bld) [#/Vol] 4.67 10*6/uL Normal 3.90-5.20 [facility] Comment on above: Performed By: #### P REALB #### [facility] [address] [place], [place] [address] WBC (Bld) [#/Vol] 6.51 10*3/uL Normal 3.70-11.00 [facility] Comment on above: Performed By: #### P REALB #### [facility] [place] [address] [place], [place] [address] CNOVon 06-02-2021 CNOV Office Visit (CORSAV ) JAIME HAYWOODFLAQUITOEMILY Nima ([id number]) 1960 F Date Time Provider Department 06/02/21 [...] internal providers or letter via the [employer] for external providers. Chief Complaint: [...] MD Colorectal Surgery Referring Provider: TERRENCE FERRO [[id number]] Allergies As of Date: 06/02/2021 (No Known Allergies) Date Reviewed: 06/02/2021 Reviewed by: Vinay Hall MD - Fully Assessed Reason for Visit: New Patient [172] Primary Visit Diagnosis:Polyp of colon, unspecified part of colon, unspecified type [K63.5] Order(s):CBC + DIFF [SQCBCDIF] Order #: [id number] FUTURE COMP METABOLIC PANEL [SQCMP] Order #: [id number] FUTURE PREALBUMIN BLD [SQPREALB] Order #: [id number] FUTURE ECG COMPLETE [ECG01] Order #: [id number] FUTURE Prescriptions as of 06/28/2021 - enoxaparin [...] Status:Closed by VINAY HALL on 06/02/21 Normal [facility] Comp Metabolic Panelon 06-02 Albumin [Mass/Vol] 4.2 g/dL Normal 3.9-4.9 [facility] Comment on above: Performed By: #### P REALB #### [facility] [employer] [place] [address] [place], [place] [address] ALP [Catalytic activity/Vol] 75 U/L Normal 34-123 [facility] Comment on above: Performed By: #### P REALB #### [facility] [employer] [place] [address] [place], [place] [address] ALT [Catalytic activity/Vol] 26 U/L Normal 7-38 [facility] Comment on above: Performed By: #### P REALB #### [facility] [place] [address] [place], [place] [address] Anion gap [Moles/Vol] 8 mmol/L Low 9-18 [facility] Comment on above: Performed By: #### P REALB #### [facility] [place] [address] [place] [address] AST [Catalytic activity/Vol] 31 U/L Normal 13-35 [facility] Comment on above: Performed By: #### P REALB #### [facility] [place] [facility] [place] [address] Bilirubin [Mass/Vol] 0.5 mg/dL Normal 0.2-1.3 [facility] Comment on above: Performed By: #### P REALB #### [place] [address] Calcium [Mass/Vol] 10.0 mg/dL Normal 8.5-10.2 [facility] Comment on above: Performed By: #### P REALB #### [place] [address] Chloride [Moles/Vol] 103 mmol/L Normal 97-105 [facility] Comment on above: Performed By: #### P REALB #### [facility] [place] [address] [place] [address] CO2 [Moles/Vol] 26 mmol/L Normal 22-30 [facility] Comment on above: Performed By: #### P REALB #### [address] [address] Creatinine [Mass/Vol] 0.54 mg/dL Low 0.58-0.96 [facility] Comment on above: Performed By: #### P REALB #### [facility] [place] [facility] [place] [id number] eGFR- Amer. >60 Normal [facility] Comment on above: Performed By: #### P REALB #### [facility] [place] [address] [place], [place] [address] eGFR-All Other Races >60 Normal [facility] Comment on above: Result Comment: eGFR [...] GFR. Performed By: #### P REALB #### [facility] [place] [address] [place], [place] [address] Glucose [Mass/Vol] 91 mg/dL Normal 74-99 [facility] Comment on above: Result Comment: The [place] Diabetes Association (ADA) provides guidance for cutoff [...] Standards of Medical Care in Diabetes 2016, [place] Diabetes Association. Diabetes Care. 2016.39(Suppl 1). Performed By: #### P REALB #### [facility] [place] [address] [place], [place] [address] Potassium [Moles/Vol] 4.4 mmol/L Normal 3.7-5.1 [facility] Comment on above: Performed By: #### P REALB #### [facility] [employer] [place] [address] [place], [place] [address] Protein [Mass/Vol] 7.0 g/dL Normal 6.3-8.0 [facility] Comment on above: Performed By: #### P REALB #### [facility] [place] [address] [place], [place] [address] Sodium [Moles/Vol] 137 mmol/L Normal 136-144 [facility] Comment on above: Performed By: #### P REALB #### [facility] [place] [address] [place], [place] [address] Urea nitrogen [Mass/Vol] 16 mg/dL Normal 7-21 [facility] Comment on above: Performed By: #### P REALB #### [facility] [place] [address] [place], [place] [address] Prealbuminon 06-02-2021 Prealbumin [Mass/Vol] 22 mg/dL Normal 17-36 [facility] Comment on above: Performed By: #### P REALB #### [facility] [employer] [place] [address] [place], [place] [address] Ambulatory Clinical Summaryo n 05-18-2021 Ambulatory Clinical Summary {[id number]}CD:[id number] Normal [facility] General Surgery Office/Clini c Noteon 05-17-2021 [...] [facility]; call sooner if problems/questions. Ordered: [facility] External Ambulatory Referral 2. Left sided colitis without complications (K51.50: Left sided colitis without complications) see # 1 Ordered: [facility] External Ambulatory Referral Follow-up No qualifying data [...] (COVID-19) mRNA BNT-162b2 vax 01/06/2021 Recorded Normal [facility] Comment on above: Result Comment: Elec tronically Signed By: ROSA ISELA PALMER, Terrence Muller\derek\Date and Time Signed: 05/17/21 16:31 EDT Outside Colonoscopyon 2020 Outside Colonoscopy [id number] D:127 Normal [facility] Pathology Noteon 05-10-2021 Pathology Note [id number] CD:127 Normal [facility] Lab Reportson 05-03-2021 Lab Reports [id number] D:127 Normal [facility] Provider Letter FTon 03-28 Provider Letter [facility] (Inserted Image. Un able to display) Mikel Ruiz, [address] [place] [address] Re: EMILY HAYWOOD Date of : 1960 Thank you for your referral of Emily Haywood who was seen on consultation for colonoscopy. A colonoscopy is planned. I have enclosed my consultation notes for your review. I will be happy to follow Emily. Sincerely, Terrence Ferro MD General Surgery [facility] Consent for Procedure/Surger yon 03-24-2021 Consent for Procedure/Surgery [id number] D:127 [facility] Historical Records Officeon 03-24-2021 Historical Records Office [id number]#1.00C D:127 Normal [facility] Ambulatory Clinical Summaryo n 03-23-2021 Ambulatory Clinical Summary {[id number]}CD:[id number] Katrina Tejeda [facility] Patient Educationon 03-23-20 Patient Education Colonoscopy A [...] ? Medicines taken, including vitamins, herbs, eyedrops, vkwo-cqj-vvdyxne medicines, and creams. ? Use of steroids [...] medicines have worn off. ? Only take yvkr-nga-onoolgi or prescription medicines for pain, discomfort, or [...] Document Reviewed: 06/03/2009 ExitCare? Patient Information ?2013 [employer]. Physical Medicine and Rehabilitation Exercising to Lose [...] of vig (more content not included)... Normal [facility] Physician Referralon 021 Physician Referral [id number] D:127 Normal [facility] Patient Correspondenceon Patient Correspondence [id number] D:127 Normal [facility] Physician Referralon 021 Physician Referral [id number] :127 Normal [facility] Physician Referralon 020 Physician Referral [id number] [id number] :127 Normal [facility] Encounters Encounter Date Encounter Type Care Provider Facility Start: 02-09-2023 Encounter for genera l adult medical examination without abnormal findings DR MIKEL RUIZ . [facility] Start: 02-05-2023 End: 02-06-[address] MIKEL [...] on above: Performed By: #### T SCR30 ####[facility] [place], [place] [phone] Payers Date Payer Category Payer Unknown [id number] 2.16.84 [id number] 1960 Unknown [id number] 2.16.84 [id number] 1960 Unknown [id number] 2.16.84 [id number] 1960 Unknown [id number] 2.16.84 [id number] 1959 Unknown [id number] Unknown [id number] Progress note 07-21-2021 Note Date & Type Note Facility 07-21-2021 Note HNO ID: [id number] Author: Vinay Hall MD Service: ? Author [...] her endoscopist. Vinay Hall MD Colorectal Surgery [facility] Progress note 06-26-2021 Note Date & Type Note Facility 06-26-2021 Note HNO ID: [id number] Author: Naa Garcia MD Service: Colorectal Author Type: Resident Type: Progress Notes Filed: 06/26/2021 10:38 PM Note Text: ODETTE DRAIN REMOVAL ? After proper patient identification, ODETTE?drain was removed at the bedside. Drain isolated, suction removed, suture cut. Recovered whole and intact. Dry gauze dressing applied. The patient tolerated the procedure well. ? Naa Garcia MD [facility] Progress note 06-26-2021 Note Date & Type Note Facility 06-26-2021 Note HNO ID: [id number] Author: Naa Garcia MD Service: Colorectal Author Type: Resident Type: Progress Notes Filed: 06/26/2021 11:54 AM Note Text: General Surgery Progress Note Service Date: June 26, 2021 Patient Name: Emily Haywood Assessment and Plan: Emily Haywood is a 60 year old female with history of villous adenoma of the rectosigmoid junction s/p laparoscopic hand assisted LAR on 06/24. Neuro/Pain: Stop ANALYSIS MANAGER and start oxycodone Cardio/Resp: Incentive spirometry FEN/GI: [...] 0659 06/26/21 0700 - 06/27/21 0659 Shift 2485-3671 0265-4814 0618-1968 24 Hour Total 5393-1944 4416-8243 1589-5470 24 Hour Total INTAKE PO 100 150 250 PO 100 150 250 Shift Total 100 150 250 OUTPUT Urine 901 661 0900 2150 Void (ml) 800 800 Output ([REMOVED] Indwelling Urinary Catheter 06/24/21 1409 [place]ado 16 Fr 06/26/21 0100) 300 262 280 4199 Tubes 90 90 50 230 Drain/Tube Output (Drain/Tube 06/24/21 1713 Jose Manuel Burton Right Lower Quadrant) 90 90 50 230 # of BMs Stool Incontinence 1 x 1 x Number of BMs 1 x 1 x 4 x 6 x Shift Total 780 506 9343 2380 Weight (kg) 110.7 110.7 110.7 110.7 [...] mL INTRAVENOUS q 12 H - HYDROmorphone ANALYSIS MANAGER 0.5 mg/mL in NaCl 0.9% 100 mL [...] Active Hospital Problem List: Colonic mass (06/09/2021) [facility] Progress note 06-25-2021 Note Date & Type Note Facility 06-25-2021 Note HNO ID: [id number] Author: Joseluis Colvin MD Service: Colorectal Author Type: Resident Type: Progress Notes Filed: 06/25/2021 7:43 AM Note Text: General Surgery Progress Note Service Date: June 25, 2021 Patient Name: Emily Haywood Assessment and Plan: Emily Haywood is a 60 year old female with history of villous adenoma of the rectosigmoid junction s/p laparoscopic hand assisted LAR on 06/24. Neuro/Pain: Continue ANALYSIS MANAGER and appreciate APMS input Cardio/Resp: Incentive spirometry [...] 0659 06/25/21 07 - 06/26/21 0659 Shift 7258-7757 1417-6786 9860-3999 24 Hour Total 2323-1897 9150-9414 7097-1695 24 Hour Total INTAKE PO 50 50 PO 50 50 IV 2500 1146 3646 Volume (mL) (lactated ringers iv infusion) 1000 1000 Volume (mL) (lactated ringers iv infusion) 1500 1500 Volume (mL) (lactated ringers iv infusion) 1146 1146 Shift Total 2550 1146 3696 OUTPUT Urine 75 394 195 2677 Void (ml) 0 0 OR Urine Output [...] Blood loss 50 50 Shift Total 75 563 522 8835 Weight (kg) 110.7 110.7 110.7 110.7 110.7 [...] mL INTRAVENOUS q 12 H - HYDROmorphone ANALYSIS MANAGER 0.5 mg/mL in NaCl 0.9% 100 mL [...] Active Hospital Problem List: Colonic mass (06/09/2021) [facility] Plan of care note 06-25-2021 Note Date & Type Note Facility 06-25-2021 Note HNO ID: [id number] Author: John Ma MD Service: Colorectal Author [...] leak test. EBL:50 mLs Interval: Arrived to [facility]. No nausea or vomiting. NPO. Pain Well-controlled. NO CP or SOB. Pt sleeping well and comfortable. Pain Meds: Tylenol q6h, Hydromorphone ANALYSIS MANAGER, ketorolac q6h IVF: LR 75 mL/hr PHYSICAL [...] MD Resident General Surgery PGY-1 Personal Pager: [phone] For calls on nights and weekends, please page the gen surg pager: [phone] 11:35 PM, 06/24/2021 [facility] Clinical Note 06-24-2021 Note Date & Type Note Facility 06-24-2021 Note HNO ID: [id number] Author: Regi De Leon APRN.SERVICENOW ADMINISTRATOR Service: Anesthesiology Author Type: Nurse Support Specialist Type: Anesthesia Procedure Notes Filed: 06/24/2021 2:11 [...] June 24, 2021 TIME: 2:11 PM CSN: [id number] [facility] Clinical Note 06-24-2021 Note Date & Type Note Facility 06-24-2021 Note HNO ID: [id number] Author: Regi De Leon APRN.CRNA Service: Anesthesiology Author Type: Nurse Support Specialist Type: Anesthesia Procedure Notes Filed: 06/24/2021 2:11 PM Note Text: ANESTHESIOLOGY PROCEDURE NOTE Airway General Information Procedure Start Time/Medication Administration: 06/24/2021 1:36 PM Patient location during procedure: OR Staffing Anesthesiologist: Fidel Grant DO SERVICENOW ADMINISTRATOR: Regi De Leon APRN.SERVICENOW ADMINISTRATOR Performed by: NISHI Indications and Patient Condition [...] June 24, 2021 TIME: 2:10 PM CSN: [id number] [facility] Progress note 06-02-2021 Note Date & Type Note Facility 06-02-2021 Note HNO ID: [id number] Author: Vinay Hall MD Service: ? Author [...] for internal providers or letter via the [employer] Postal Service for external providers. Chief Complaint: [...] plan: high Vinay Hall MD Colorectal Surgery [facility] Clinical Note 03-23-2021 Note Date & Type Note Facility 03-23-2021 Note Chief Complaint Consultation for Colonoscopy HPI Staff 60 year old female referred by Dr Ruiz on consultation of Colonoscopy. Previous Colonoscopy completed at [facility] [address] Hall. Denies symptoms of [...] SARS-CoV-2 (COVID-19) mRNA BNT-162b2 vax 01/06/2021 Recorded [facility] Comment on above: Result Comment: Elec [...] section and content) DATE CREATED AUTHOR 06/14/2021 [facility] DATE CREATED AUTHOR AUTHOR'S ORGANIZ ATION 06/14/2021 [facility] DATE CREATED AUTHOR AUTHOR'S ORGANIZ ATION 06/18/2021 [facility] DATE CREATED AUTHOR AUTHOR'S ORGANIZ ATION 06/29/2021 [facility] DATE CREATED AUTHOR AUTHOR'S ORGANIZ ATION 06/30/2021 [facility] DATE CREATED AUTHOR AUTHOR'S ORGANIZ ATION 12/08/2021 [facility] DATE CREATED AUTHOR AUTHOR'S ORGANIZ ATION 02/10/2023 [facility] FOR RECORDS PERTAINING TO PATIENTS WHO [...] BE BASED ON THE PRIMARY CLINICAL RECORDS. [facility]. provides no warranty or guarantee of the accuracy or completeness of information in this document.
== END 2025-02-19 09:19 | disposition home or self-care (01) ==
LOC: MRI 09:18
PROVIDERS: PCP Family Medicine; Visit Provider Family Medicine
DX: M54.50 Low back pain, unspecified (principal); M51.369 Other intervertebral disc degeneration, lumbar region without mention of lumbar back pain or lower extremity pain; M48.062 Spinal stenosis, lumbar region with neurogenic claudication
CPT/HCPCS: 72148

== ENCOUNTER 2025-10-31 10:18 | Outpatient (OUT) | payer OTHER, SELFPAY ==
--- OUTSIDE RECORDS SUMMARY | 2025-10-30 08:30 | XMS_ITS ---
Author Organization [facility] [place] Address [address] [place] [address] Care Team Providers Care Vp Design Name Role Phone Frandy Ruiz Primary Care Provider [phone] Allergies No Known Allergies REASON FOR VISIT yearly wellness exam, Ears clogged, Stopped taking her Levothyroxine- was gaining weight so she stopped taking it Medications Medication SIG (Take, Route, Frequency, Duration) Notes Start Date End Date Status Cyclobenzaprine HCl 10 MG 1 tablet Orally tid; D uration: 30 days 5ActiveCitalopram Hydrobromide 20 MGTAKE 1 TABLET BY MOUTH EVERY DAY; Duration: 90ActiveLiothyronine Sodium 5 MCGTAKE 2 TABLETS BY MOUTH ONCE DAILY ON AN EMPTY STOMACH; Duration: 90 daysActiveDiclofenac Sodium 75 MGTAKE 1 TABLET BY MOUTH TWICE A DAY; Duration: 30ActiveFenofibrate 145 MG1 tablet Orally Once a day; Duration: 90 daysActive Social History Tobacco Use: Social History Observation Description Date Details (start date - stop date) Former Smoker 11/05/1974 - 11/05/1991 Tobacco Use/Smoking Question Answer Notes Patient is a former smoker When did you start smoking?11/05/1974When did you stop smoking?11/05/1991 Problems Problem Type SNOMED Code ICD Code Onset Dates Problem Status W/U Status Risk Notes Problem Gastroesophageal ref lux disease (236251300) GERD (gastroesophageal reflux disease) (K21.9) Activeconfirmed Vital Signs Weight 256.6 lbs 10/30/2025 Height 64 in 10/30/2025 Blood pressure systolic 126 mm Hg 10/30/20 25 Blood pressure diastolic 80 mm Hg 025 BMI 44.04 kg/m2 10/30/2025 Procedures Procedure Date Ordered Date Performed Result Body Sit e Cerumen Removal - performed 10/30/2025 10/30/2025 N/A Encounters Encounter Location Date Provider Diagnosis [facility] [address] [place] [address] 10/30/2025 Frandy Ruiz Hypothyroidism E03.9 ; Low back pain at multiple sites M54.50 ; Bilateral primary osteoarthritis of knee M17.0 ; GERD (gastroesophageal reflux disease) K21.9 and Cerumen impaction H61.20 Assessments Encounter Date Diagnosis (ICD Code) Assessment Notes Treatment Notes Treatment Clinical Notes Section Notes 10/30/2025 Hypothyroidism (ICD-10 - E03.9) 10/30/2025Low back pain at multiple sites (ICD-10 - M54.50)10/30/2025ilateral primary osteoarthritis of knee (ICD-10 - M17.0)10/30/2025GERD (gastroesophageal reflux disease) (ICD-10 - K21.9)10/30/2025erumen impaction (ICD-10 - H61.20) Plan Of Treatment Pending Test Test Name Order Date HEMOGLOBIN A1C (GLYCO) 10/30/2025 IRON, TOTAL 10/30/2025 LIPID PANEL (CHOL/TRIG/HDL/LDL) 10/30/20 25 VITAMIN D, 25 LEVEL (TOTAL) 10/30/2025 Insulin Level 10/30/2025 STOOL OCCULT BLOOD 10/30/2025 THYROID PANEL (T4/TSH/FREE T3) 5 MM diagnostic mammo BI 10/30/2025 CMP (COMP MET MEDINA) w/eGFR CKD-EPI 2024 CBC WITH DIFF 10/30/2025 Progress Notes * Kami RASHID LDOB: 0 (65 yo F)Acc No.[id number]:10/30/2025 UNLOCKED PROGRESS NOTE Progress Note Patient: Kami VALLE :?Camron Ruiz ([facility]), MDDOB:1960???Age: 65 Y???Sex:FemaleDate:10/30/2025Phone:[phone]:[address] [place] [address] Oksana, BUNNY [id number] In:01:25 PM ESTCheck Out:02:20 PM EST Subjective: * Chief Complaints: * 1 . Yearly wellness exam. 2. Ears clogged. 3. Stopped taking her Levothyroxine- was gaining weight so she stopped taking it. * ROS: ???EENT:?hearing changes?denies.?visual changes?denies. non-healing mouth sores?denies.?swollen glands or neck lumps?denies.?hoarseness?denies.?sore throat?denies.?difficulty swallowing?denies.?nose bleeds?denies.?nasal congestion?denies.?ear ache?denies.?ear discharge denies.?ringing in ears?denies.?light sensitivity?denies.?eye pain?denies.?blurring?denies.?eye irritation?denies.?double vision?denies. vision loss?denies.?General/Constitutional:?Sweats:?Denies.?Fatigue?denies.?Sleep proble ms?denies.?Anorexia?denies.?Malaise?denies.?Weight loss?denies. Fatigue or Weakness?denies.?Fever or Chills?denies.?Cardiovascular:?Shortness of Breath w/lying flat?denies.?Lightheadedne ss/dizziness?denies.?Chest tightness/ heavy pressure?denies.?Swelling of legs, a nkles, or feet?denies.?Waking up with shortness of breath?denies.?Chest pain&#16 0;denies.?Palpitations?denies.?Weight gain?denies.?Respiratory:?Chronic or frequent cough?denies.?Coughing up blood&#1 60;denies.?Difficulty breathing?denies.?Productive cough?denies.?Snoring&#1 60;denies.?Shortness of breath that awakens from sleep (PND)?denies.?Chest pain? denies.?Sputum production?denies.?Wheezing?denies.?Musculoskeletal:?Joint pain?denies.?Joint Fluid?denies.?Backpain?denies.?Knee pain?denies.?Neck pain?denies.?Joint Stiffness?denies.?Muscle cramps?denies.?Weakness of muscles?denies.?Arthritis?denies.?Muscle aches?denies.?Pain in shoulder(s)?denies.?Swollen joints?denies.? 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 * Surgical History: T onsils , Right Shoulder surgery , bowel resection , Left carpal tunnel release , catarat extraction OD . * Hospitalization/Major Diagno stic Procedure: Tootie arthur Past Hospitalization. * Family History: F ather: alive, diagnosed with Heart Disease. M other: alive, dementia. * Social History: ???Tobacco Use:?Tobacco Use/Smoking?Patient is a?former smoker ?When did you start smoking??11/05/1974 ?When did you stop smoking??11/05/1991 * Medications: T aking Citalopram Hydrobromide 20 MG Tablet TAKE 1 TABLET BY MOUTH EVERY DAY , Taking Cyclobenzaprine HCl 10 MG Tablet 1 tablet Orally tid , Taking Diclofenac Sodium 75 MG Tablet Delayed Release TAKE 1 TABLET BY MOUTH TWICE A DAY , Taking Fenofibrate 145 MG Tablet 1 tablet Orally Once a day , Taking Liothyronine Sodium 5 MCG Tablet TAKE 2 TABLETS BY MOUTH ONCE DAILY ON AN EMPTY STOMACH , Discontinued Levothyroxine Sodium 50 MCG Tablet 1 tablet in the morning on an empty stomach Orally Once a day , Medication List reviewed and reconciled with the patient * Allergies: N .K.D.A. Objective: * Vitals: W t:256.6lbs, Ht: 64 in, BP:126/80mm Hg, BMI:44.04Index, Ht-cm: 162.56 cm, Wt-k.39 kg. * Examination: ???Physical Exam: ?GENERAL:?well developed, well nourished, in no acute distress.?HEAD:?normocephalic/atraumatic.?EYES:?pupils equal, round and reactive to light, conjunctivae and sclerae normal.?EARS:?no deformity or lesion of external ear, canals and TM appear normal bilaterally, TM's intact, not inflamed with normal light reflex, hearing grossly normal to conversational speech.?NOSE:?no deformity, discharge, inflammation, or lesions. ?MOUTH:?mucous membranes moist, normal oropharynx and posterior pharynx without lesions or exudates, tongue normal, dentition normal.?NECK:?neck supple, no masses or palpable cervical nodes, trachea midline, thyroid without nodules, masses, tenderness, or enlargement.?CHEST:?no chest wall deformity, no chest wall tenderness. ?LUNGS:?normal respiratory effort and clear to auscultation, no wheezes, rales, or rhonchi, good air exchange.?CARDIO:?regular rate and rhythm, normal S1 and S2, nor murmur, rub, or gallop.?PULSES:?normal capillary refill.?ABDOMEN:?soft, non-distended, non-tender, no masses.?MUSCULOSKELETAL:?no deformity or scoliosis noted, normal range of motion, joints normal, no erythema, edema, effusion, or ecchymosis.?EXTREMITY:?no clubbing, cyanosis, edema, or deformity withnormal ROM in both upper and lower bilateral extremities.?NEUROLOGIC:?grossly normal.?SKIN:?no rashes, ulcerations, or suspicious lesions.?LYMPH NODES:?no cervical adenopathy, nodes normal.?MENTAL STATUS:?alert and oriented x3, normal mood and affect.? Assessment: * Assessment: 1.?Hypothyroidism - E03.9 (Primary)???2.?Low back pain at multiple sites - M54.50???3.?Bilateral primary osteoarthritis of knee - M17.0???4.?GERD (gastroesophageal reflux disease) - K21.9???5.?Cerumen impaction - H61.20??? Plan: * Treatment: ?LAB: HEMOGLOBIN A1C (GLYCO) ?LAB: IRON, TOTAL ?LAB: LIPID PANEL (CHOL/TRIG/HDL/LDL) ?LAB: VITAMIN D, 25 LEVEL (TOTAL) ?LAB: Insulin Level ?LAB: STOOL OCCULT BLOOD ?LAB: THYROID PANEL (T4/TSH/FREE T3) ?LAB: CMP (COMP MET MEDINA) w/eGFR CKD-EPI ?LAB: CBC WITH DIFF ?Imaging: MM diagnostic mammo BI2.?Low back pain at multiple sites?LAB: HEMOGLOBIN A1C (GLYCO) ?LAB: IRON, TOTAL ?LAB: LIPID PANEL (CHOL/TRIG/HDL/LDL) ?LAB: VITAMIN D, 25 LEVEL (TOTAL) ?LAB: Insulin Level ?LAB: STOOL OCCULT BLOOD ?LAB: THYROID PANEL (T4/TSH/FREE T3) ?LAB: CMP (COMP MET MEDINA) w/eGFR CKD-EPI ?LAB: CBC WITH DIFF3.?Bilateral primary osteoarthritis of knee?LAB: HEMOGLOBIN A1C (GLYCO) ?LAB: IRON, TOTAL ?LAB: LIPID PANEL (CHOL/TRIG/HDL/LDL) ?LAB: VITAMIN D, 25 LEVEL (TOTAL) ?LAB: Insulin Level ?LAB: STOOL OCCULT BLOOD ?LAB: THYROID PANEL (T4/TSH/FREE T3) ?LAB: CMP (COMP MET MEDINA) w/eGFR CKD-EPI ?LAB: CBC WITH DIFF4.?GERD (gastroesophageal reflux disease)?LAB: HEMOGLOBIN A1C (GLYCO) ?LAB: IRON, TOTAL ?LAB: LIPID PANEL (CHOL/TRIG/HDL/LDL) ?LAB: VITAMIN D, 25 LEVEL (TOTAL) ?LAB: Insulin Level ?LAB: STOOL OCCULT BLOOD ?LAB: THYROID PANEL (T4/TSH/FREE T3) ?LAB: CMP (COMP MET MEDINA) w/eGFR CKD-EPI ?LAB: CBC WITH DIFF5.?Cerumen impaction?Procedure: Cerumen Removal - performed (Performed Date - 10/30/2025) * Procedure Codes: 6 9210 REMOVE IMPACTED CERUMEN * Preventive Medicine: ??Screenings/Counseling:?BMI ACTION PLAN?Above Normal BMI Follow-up?Dietary management education, guidance, and counseling * * Electronic signature of Frandy Ruiz MD, [phone] on 10/31/2025 at 10:24 AM EST Sign off status: PendingVisit Status:?CHK (Check Out) * [facility] Norberto Date: 1 12/31/2024 Generated for Printing/Faxing/eTransmitting on:?10/31/2025 10:24 AM EST History and Physical Notes * Examination CategorySub-CategoryDetailNotesCategory NotesPhysical ExamGENERAL:well developed, well nourished, in no acute distressHEAD:normocephalic/atraumatic EYES:pupils equal, round and reactive to light, conjunctivae and sclerae normal EARS:no deformity or lesion of external ear, canals and TM appear normal bilaterally, TM's intact, not inflamed with normal light reflex, hearing grossly normal to conversational speechNOSE:no deformity, discharge, inflammation, or lesionsMOUTH:mucous membranes moist, normal oropharynx and posterior pharynx without lesions or exudates, tonguenormal, dentition normalNECK:neck supple, no masses or palpable cervical nodes, trachea midline, thyroid without nodules, masses, tenderness, or enlargementCHEST:no chest wall deformity, no chest wall tendernessLUNGS:normal respiratory effort and clear to auscultation, no wheezes, rales, or rhonchi, good air exchangeCARDIO:regular rate and rhythm, normal S1 and S2, nor murmur, rub, or gallopPULSES:normal capillary refillABDOMEN:soft, non-distended, non-tender, no massesRECTAL:MUSCULOSKELETAL:no deformity or scoliosis noted, normal range of motion, joints normal, no erythema, edema, effusion, or ecchymosisEXTREMITY:no clubbing, cyanosis, edema, or deformity with normal ROM in both upper and lower bilateral extremitiesNEUROLOGIC:grossly normalSKIN:no rashes, ulcerations, or suspicious lesionsLYMPH NODES:no cervical adenopathy, nodes normalMENTAL STATUS:alert and oriented x3, normal mood and affect
--- OUTSIDE RECORDS SUMMARY | 2025-10-31 10:24 | XMS_ITS | CCD ---
Author Organization [facility] Care Team Providers Care Lifestyle Consultant Name Role Phone GITA ., DR MORIN Primary Care Unavailable KARASIK ., DR RAMOS Admitting Unavailabl e KARASIK ., DR RAMOS Attending Unavailabl e KARASIK ., DR RAMOS Consulting Unavailabl e ZIEBER, DR MONICA Muller Consulting Unavailable HOY ., DR MORIN [...] Unavailable HOY ., DR MORIN Attending Unavailable BIALASKI, LINDA Referring Unavailable BIALASKI LINDA Referring Unavailable Medications Current Medications MedicationDrug Class(es)DatesSig (Normalized)Sig (Original)citalopram 20 mg oral tablet (1 source)Serotonin Reuptake InhibitorStart: 03-66-6061ihtl 1 tablet by mouth once dailyCitalopram 20 mg tablet Active 20 MG PO Daily March 18, 2025 12:00am cyclobenzaprine hydrochloride 10 mg oral tablet (1 source)Muscle RelaxantStart: 74-48-4166wmbo 1 tablet by mouth three times dailyCyclobenzaprine 10 mg tablet Active 10 MG PO Three times daily March 18, 2025 12:00amdiclofenac sodium 75 mg delayed release oral tablet (1 source)Nonsteroidal Anti-inflammatory DrugStart: 28-70-1126ezsj 1 tablet by mouth twice dailyDiclofenac Sodium 75 mg tablet,delayed release (DR/EC) Active 75 MG PO Twice daily March 18, 2025 12:00amfenofibrate 145 mg oral tablet (1 source)Peroxisome Proliferator Receptor alpha AgonistStart: 38-95-7703boyi 1 tablet by mouth once dailyFenofibrate Nanocrystallized 145 mg tablet Active 145 MG PO Daily March 18, 2025 12:00amlevothyroxine sodium 0.05 mg oral capsule (1 source)l-ThyroxineStart: 43-09-1974xiqy 1 capsule by mouth once daily Levothyroxine 50 mcg capsule Active 50 MCG PO Daily March 18, 2025 12:00am liothyronine sodium 0.005 mg oral tablet (1 source)l-TriiodothyronineStart: 29-00-3213mgyn 1 tablet by mouth once daily Liothyronine 5 mcg tablet Active 5 MCG PO Daily March 18, 2025 12:00am Problems Active Problems Problem ClassificationProblemDateDocumented DateEpisodic/ChronicNutritional deficiencies (1 source)Vitamin D deficiency, unspecified; Translations: [VITAMIN D DEFICIENCY UNSPECIFIED]Onset: 34-23-6180HanqtaaJaxrneupjtlr (3 sources)COUGH, UNSPECIFIED; Translations: [COUGH, UNSPECIFIED]Onset: 58-17-2576Lvenkjrdjvxb (4 sources)CONTACT W/AND (SUSP) EXPOS COVID-19; Translations: [CONTACT W/AND (SUSP) EXPOS COVID-19]Onset: 07-27-2022 Past or Other Problems Problem ClassificationProblemDateDocumented DateEpisodic/ChronicOther screening for suspected conditions (not mental disorders or infectious disease) (4 sources)Encounter for screening mammogram for malignant neoplasm of breast; Translations: [ENC SCR MAMMO MALIG NEOPLASM BREAST]Onset: 44-94-2274Ireipgch Other upper respiratory disease (1 source)Nasal congestion; Translations: [NASAL CONGESTION]Onset: 10-27-2022 EpisodicOther upper respiratory infections (1 source)Acute sinusitis, unspecified; Translations: [ACUTE SINUSITIS UNSPECIFIED]Onset: 83-28-4474YmpijgpzZcaxngqg codes; unclassified (1 source)Family history of leukemia; Translations: [FAMILY HISTORY OF LEUKEMIA] Onset: 25-33-8974AuoxvjqkDnamjbqp codes; unclassified (1 source)Family history of malignant neoplasm of prostate; Translations: [FAMILY HX MALIG NEOPLASM PROSTATE]Onset: 45-68-3161NwvcdxmxEdqaeqkfjfsr (1 source)COUGH, UNSPECIFIED; Translations: [COUGH, UNSPECIFIED]Onset: 24-39-7229Birfwbklfqyg (1 source)CONTACT W/AND (SUSP) EXPOS COVID-19; Translations: [CONTACT W/AND (SUSP) EXPOS COVID-19]Onset: 07-26-2022 Results Test NameValueInterpretationReference RangeFacilityMR THORACIC SPINE WO CONTRAST on 10-79-1658RN THORACIC SPINE WO CONTRASTExam: MR THORACIC SPINE WO CONTRAST Clinical History: Mid back pain for a few months Reference Exam: No comparison Technique: Multiplanar, multisequence thoracic spine MRI was performed without intravenous contrastadministration. Findings: FINDINGS: Alignment: Gentle upper thoracic dextrorotoscoliosis. Vertebral bodies: Sagittal STIR imaging: No abnormal increased or weighted signal identified withinthe thoracic vertebral segments. Multilevel thoracic spinal spondylosis. Paravertebral soft tissues: Negative. Thoracic cord: Normal cord morphology and signal. No syrinx. Conus: Negative, terminates at L1 Disc Spaces: Multilevel degenerative disc base height loss throughout the thoracic spine. Multilevel bulging throughout the thoracic spine at nearly all levels. Negative for thoracic spine disc extrusion. No Paraspinal soft tissues:There is appropriate vascular flow void in the great vessels of the chest. Bilateral renal cysts. Small hiatal hernia. Impression: 1. Multilevel thoracic spinal spondylosis. 2. Multilevel degenerative disc disease with bulging throughout the thoracic spine. 3. Negative for thoracic spine disc extrusion, compression or other fracture, or subluxation. Dictated on: 04/07/2025 10:31 AM This report has been electronically signed and approved by the interpreting Radiologist.NormalNot AvailableXR LUMBAR SPINE 4+ VIEWS WITH FLEXION EXTENSIONon 13-65-5002LG LUMBAR SPINE 4+ VIEWS WITH FLEXION EXTENSIONExam: XR LUMBAR SPINE 4+ VIEWS WITH FLEXION EXTENSION Clinical History: Mid back pain for a few months, felt a pop Reference Exam: X-ray 02/04/2025 FINDINGS: Gentle levorotoscoliosis of the lower lumbar spine. Multilevel degenerative disc disease and spondylosis. Disc space height loss most pronounced at L2-L3. Lumbar pedicles are not splayed. The SI joints and the sacral arcuate lines are thought to align appropriately. Oblique views document no pars interarticularis defects. Smooth sacrococcygeal arch. Flexion/extension lateral views generate no abnormal motion. Nonobstructive abdominal bowel gas pattern. IMPRESSION: 1. Degenerative levorotoscoliosis of the lumbar spine. 2. Multilevel degenerative disc base height loss. 3. Negative for acute compression or other fracture. No subluxation or generation of abnormal motion on provocative maneuvers. Dictated on: 04/07/2025 9:46 AM This report has been electronically signed and approved by the interpreting Radiologist.NormalNot AvailableINSULINon 21-29-8304Tiknkrc24.0 uIU/mLNormal 2.6-24.9[facility] HospitalComment on above:Performed By: #### INSULIN #### [facility] [address] [place] [address] Dr. Marium Toledo AUTO DIFFon 89-12-7816KTTO #0.0 103/ulNormal0.0-0.1[facility] HospitalComment on above:Performed By: #### CBC #### [facility] [address] [place] [address] Dr. Marium MurilloBasophils/100 WBC (Bld)0.3 %Normal0.2-2.0[facility] Comment on above:Performed By: #### CBC #### [facility] [address] [place] [address] Dr. Marium Pena #0.2 103/ulNormal0.0-0.7The [facility] CenterComment on above: Performed By: #### CBC #### [facility] [address] [place] [address] Dr. Marium Arriagaosinophils/100 WBC (Bld)3.5 %Normal0.9-7.0[facility] Comment on above:Performed By: #### CBC #### [facility] [address] [place] [address] Dr. Marium Arriagarythrocyte distribution width (RBC) [Ratio]13.1 %Adqcuj31.0-15.0 [facility] HospitalComment on above:Performed By: #### CBC #### [facility] [address] [place] [address] Dr. Marium MurilloHematocrit (Bld) [Volume fraction]41.6 %Zdvxqi52.0-48.0The [facility] CenterComment on above:Performed By: #### CBC #### [facility] [address] [place] [address] Dr. Marium MurilloHemoglobin (Bld) [Mass/Vol]13.4 g/yRLkatpt54.0-16.0The [facility] CenterComment on above:Performed By: #### CBC #### [facility] [address] [place] [address] Dr. Marium MurilloIG #0.03 10e3/ulNormal0.00-0.03The [facility] CenterComment on above:Performed By: #### CBC #### [facility] [address] [place] [address] Dr. Marium MurilloIG %0.5 %Normal0.0-0.5The [facility] CenterComment on above: Performed By: #### CBC #### [facility] [address] [place] [address] Dr. Marium Olvera #1.5 103/ulNormal1.2-3.8The [facility] CenterComment on above:Performed By: #### CBC #### [facility] [address] [place] [address] Dr. Marium Bernardomphocytes/100 WBC (Bld)23.8 %Tdjjpt55.5-60.0The [facility] CenterComment on above:Performed By: #### CBC #### [facility] [address] [place] [address] Dr. Marium MurilloMANUAL DIFF REQNONormalThe [facility] CenterComment on above: Performed By: #### CBC #### [facility] [address] [place] [address] Dr. Marium Coburn (RBC) [Entitic mass]28.8 evNsxqhg06.7-34.0The [facility] CenterComment on above:Performed By: #### CBC #### [facility] [address] [place] [address] Dr. Marium Bedoya (RBC) [Mass/Vol]32.2 g/fSMdpaey71.9-35.2The [facility] CenterComment on above:Performed By: #### CBC #### [facility] [address] [place] [address] Dr. Marium BedoyaV (RBC) [Entitic vol]89.3 gZEakvur20.0-99.0The [facility] CenterComment on above:Performed By: #### CBC #### [facility] [address] [place] [address] Dr. Marium Hodge #0.8 103/ulNormal0.3-0.8The [facility] CenterComment on above:Performed By: #### CBC #### [facility] [address] [place] [address] Dr. Marium Parkerocytes/100 WBC (Bld)12.2 %Critically high1.7-12.0The [facility] CenterComment on above:Performed By: #### CBC #### [facility] [address] [place] [address] Dr. Marium Shane #3.8 103/ulNormal1.4-6.5The [facility] CenterComment on above:Performed By: #### CBC #### [facility] [address] [place] [address] Dr. Marium Victoriautrophils/100 WBC (Bld)59.7 %Rhrzwy12.0-75.0The [facility] CenterComment on above:Performed By: #### CBC #### [facility] [address] [place] [address] Dr. Marium Torreslet mean volume (Bld) [Entitic vol]13.3 fLNormal9.5-13.5The [facility] CenterComment on above:Performed By: #### CBC #### [facility] [address] [place] [address] Dr. Marium MurilloPLT172 103/evOboqfz442-260Yss [facility] CenterComment on above: Performed By: #### CBC #### [facility] [address] [address] [address] Marium MurilloRBC4.66 106/ulNormal4.20-5.40The [facility] on above:Performed By: #### CBC #### [facility] [address] [address] [address] Marium MurilloWBC6.3 103/ulNormal4.0-11.0The [facility] on above: Performed By: #### CBC #### [facility] [address] [address] [address] Marium Balbuena THYROXINE INDEX T7on 05-01-1644JAJ9.35Xrvqyf1.30-4.50The [facility] on above:Performed By: #### TSH, LIPID, CMP, T7 ####[facility] [address] [address]Dr. Marium MurilloT3U35.0 %Ylczvp44.0-39.0The [facility] on above: Performed By: #### TSH, LIPID, CMP, T7 ####[facility] [address] [address]Dr. Marium MurilloT4 [Mass/Vol]4.30 ug/dLCritically low4.80-13.90The [facility] on above:Performed By: #### TSH, LIPID, CMP, T7 ####[facility] [address] [address]Dr. Marium MurilloGLYCOHEMOGLOBIN A1Con 09-30-0585XRT RECOMMENDATIONSEE BELOWChildren's Hospital for RehabilitationComjohn d. dingell [facility] on above:Result Comment: ADA RECOMMENDED LIMIT 4.0 - 6.0 ADA THERAPEUTIC TARGET < 7.0 ACTION SUGGESTED > 7.0Performed By: #### A1C #### [facility] [address] [address] [address] Marium MurilloGlucose [Mass/Vol]111 mg/dLPremier Health Miami [facility] on above:Performed By: #### A1C #### [facility] [address] [address] [address] Marium MurilloHbA1c (Bld) [Mass fraction]5.5 %Normal4.5-6.2The [facility] on above:Performed By: #### A1C #### [facility] [address] [address] [address] Marium Cole 47-25-6786Ukby [Mass/Vol]72.0 ug/vYXewdkx50.0-170.0The [facility] on above:Performed By: #### VITAD, IRON #### [facility] [address] [place] [address] Dr. Marium MurilloLIPID PROFILEon 64-91-6325GOMM-HDL RATIO NORMSEE [facility] HospitalComjohn d. [facility] on above:Result Comment: 3.3 - 4.4 LOW RISK 4.4 - 7.1 AVERAGE RISK 7.1 - 11.0 MODERATE RISK >11.0 HIGH RISKPerformed By: #### TSH, LIPID, CMP, T7 ####[facility] [address] [address]Dr. Yijocy ChangCholesterol [Mass/Vol]179 mg/dLNormal<=200The [facility] on above:Performed By: #### TSH, LIPID, CMP, T7 ####[facility] [address] [address]Dr. Quyenjocy Murillo Cholesterol in HDL [Mass/Vol]46 mg/kLMjqgpe27-82Ztt [facility] on above:Performed By: #### TSH, LIPID, CMP, T7 ####[facility] [address] [address]Dr. Marium ChangCholesterol in LDL [Mass/Vol]105.6 mg/dLPremier Health [facility] Hospital [facility] on above:Performed By: #### TSH, LIPID, CMP, T7 ####[facility] [address] [address]Dr. Yilan ChangCholesterol.total/Cholesterol in HDL [Mass ratio]3.9 {ratio}NormalThe [facility] on above:Performed By: #### TSH, LIPID, CMP, T7 ####[facility] [address] [address]Dr. Marium ChangHDL NORMAL> or = 60 mg/dl - LOW CARDIOVASCULAR RISK <40 mg/dl - HIGH CARDIOVASCULAR RISKChildren's Hospital for RehabilitationComjohn d. dingell [facility] on above:Performed By: #### TSH, LIPID, CMP, T7 ####[facility] [address] [address]Dr. Yilan ChangLDL CALC NORMALSEE BELOWChildren's Hospital for RehabilitationComment on above:Result Comment: <100 mg/dl OPTIMAL 100 - 129 mg/dl NEAR OR ABOVE OPTIMAL 130 - 159 mg/dl BORDERLINE HIGH 160 - 189 mg/dl HIGH >190 mg/dl VERY HIGHPerformed By: #### TSH, LIPID, CMP, T7 ####[facility] [address] [address]Dr. Marium ChangTriglyceride [Mass/Vol]137 mg/dLNormal<=150The [facility] CenterComment on above:Performed By: #### TSH, LIPID, CMP, T7 ####[facility] [address] [address]Dr. Marium ChangVLDL CALC27.4 mg/dLNoCleveland Clinic Union HospitalComjohn d. [facility] on above:Performed By: #### TSH, LIPID, CMP, T7 ####[facility] [address] [address]Dr. Marium ChangPROF 14(COMP METB)on 85-74-3620Hmriigo [Mass/Vol]3.5 g/dLNormal3.4-5.0The [facility] CenterComment on above:Performed By: #### TSH, LIPID, CMP, T7 ####[facility] [address] [address]Dr. Marium MurilloAlbumin/Globulin [Mass ratio]1.0 {ratio}NormalThe [facility] on above:Performed By: #### TSH, LIPID, CMP, T7 ####[facility] [address] [address]Dr. Marium MurilloALP [Catalytic activity/Vol]84 U/YMcdyxq59-471Kli [facility] CenterComment on above:Performed By: #### TSH, LIPID, CMP, T7 ####[facility] [address] [address]Dr. Yilan ChangALT [Catalytic activity/Vol]32 U/ZIhfpbq95-83Wis [facility] Comment on above:Performed By: #### TSH, LIPID, CMP, T7 ####[facility] [address] [address]Dr. Yilan ChangAnion gap [Moles/Vol]8.2 mmol/LNormalThe [facility] CenterComment on above:Performed By: #### TSH, LIPID, CMP, T7 ####[facility] [address] [place], [place] [address]Dr. Yilan ChangAST [Catalytic activity/Vol]27 U/L Bswgcl75-12Bgk [facility] CenterComment on above:Performed By: #### TSH, LIPID, CMP, T7 ####[facility] [address] [place], [place] [address]Dr. Yilan ChangBilirubin [Mass/Vol]0.4 mg/dLNormal0.2-1.0The [facility] CenterComment on above:Performed By: #### TSH, LIPID, CMP, T7 ####[facility] [address] [place], [place] [address]Dr. Yilan Murillo Calcium [Mass/Vol]9.2 mg/dLNormal8.5-10.1The [facility] CenterComment on above: Performed By: #### TSH, LIPID, CMP, T7 ####[facility] [address] [place], [place] [address]Dr. Yilan ChangChloride [Moles/Vol]107 mmol/L Cwxumg89-344Hgu [facility] CenterComment on above:Performed By: #### TSH, LIPID, CMP, T7 ####[facility] [address] [address]Dr. Yilan ChangCO2 [Moles/Vol]31.9 mmol/EZfpalm79.0-32.0The [facility] CenterComment on above:Performed By: #### TSH, LIPID, CMP, T7 ####[facility] [address] [address]Dr. Yilan Murillo Creatinine [Mass/Vol]0.59 mg/dLNormal0.55-1.02The [facility] CenterComment on above:Performed By: #### TSH, LIPID, CMP, T7 ####[facility] [address] [place], [place] [address]Dr. Yilan ChangEGFR-AF SURINAMESE>60Normal>=60The [facility] CenterComment on above:Performed By: #### TSH, LIPID, CMP, T7 ####[facility] [address] [place], [place] [address]Dr. Yilan ChangEGFR-NON AF SURINAMESE>60Normal>=60The [facility] CenterComment on above:Performed By: #### TSH, LIPID, CMP, T7 ####[facility] [address] [place], [place] [address]Dr. Yilan ChangGlobulin (S) [Mass/Vol]3.6 g/dLNormalThe [facility] CenterComment on above:Performed By: #### TSH, LIPID, CMP, T7 ####[facility] [address] [place], [place] [address]Dr. Yilan ChangGlucose [Mass/Vol]91 mg/nWTsnpwg10-254Jyj [facility] on above:Performed By: #### TSH, LIPID, CMP, T7 ####[facility] [address] [place], [place] [address]Dr. Yilan ChangPotassium [Moles/Vol]4.1 mmol/LNormal 3.5-5.1The [facility] CenterComment on above:Performed By: #### TSH, LIPID, CMP, T7 ####[facility] [address] [place], [place] [address]Dr. Yilan ChangProtein [Mass/Vol]7.1 g/dLNormal6.4-8.2The [facility] CenterComment on above:Performed By: #### TSH, LIPID, CMP, T7 ####[facility] [address] [place], [place] [address]Dr. Yilan ChangSodium [Moles/Vol]143 mmol/XAhchvt655-351MrpMiami Valley Hospitalment on above: Performed By: #### TSH, LIPID, CMP, T7 ####[facility] [address] [address]Dr. Marium ChangUrea nitrogen [Mass/Vol]21.0 mg/dLCritically high7.0-18.0The [facility] CenterComment on above:Performed By: #### TSH, LIPID, CMP, T7 ####[facility] [address] [id number]. Marium ChangUrea nitrogen/Creatinine [Mass ratio] 35.6 mg/mgNoCleveland Clinic Union HospitalComment on above:Performed By: #### TSH, LIPID, CMP, T7 ####[facility] [address] [address]Dr. Marium MurilloTSHon 08-85-9546KWC6.666 uIU/mLNormal0.358-3.740The [facility] CenterComjohn d. [facility] on above:Performed By: #### TSH, LIPID, CMP, T7 #### [facility] [address] [place] [address] Dr. Marium MurilloVITAMIN D 25 OHon 77-59-9807NZJ D 25-OH26.2 ng/mLNormalOhiohealth Marion General HospitalComjohn [facility]. [facility] on above:Performed By: #### VITAD, IRON #### [facility] [address] [place] [address] Dr. Marium Sommers RANGESSEE BELOWNoCleveland Clinic Union HospitalComment on above: Result Comment: <20 ng/mL Vit D deficient 20 - <30 ng/mL Vit D insufficient 30 - 100 ng/mL Vit D sufficient >100 ng/mL Potential ToxicityPerformed By: #### VITAD, IRON #### [facility] [address] [place] [address] Dr. Marium Lehman-19 PCR (CVDTB)on 16-26-2619ELPW-CoV-2 (COVID-19) RNA MICHELL+probe Ql (Unsp spec)Not detectedNormalNOT DETECTEDThe [facility] Comment on above:Result Comment: When diagnostic testing is negative, the [...] for this test is supported by the Industry of Health and Human Service's declaration that circumstances exist to justify the emergency use of in vitro diagnostics for the detection and/or diagnosis of the virus that causes COVID-19. This EUA will remain in effect for the duration of the COVID-19 declaration justifying emergency of IVDs, unless it is terminated or revoked by the FDA (after which the test may no longer be used).Performed By: #### CVDTBH #### [facility] [address] [place] [address] Dr. Marium Christensen AND [facility] [phone]dred Hospital DaytonComment on above:Result Comment: Negative for Flu B protein antigen. Infection due to Flu B cannot be ruled out. FluB antigen in the sample may be below the detection limit of the test.Performed By: #### INFLUAB #### [facility] [address] [place] [address] Dr. Marium Christensen AGPositiveAbnormalNEGATIVE SEE COMMENTThe [facility] on above:Performed By: #### INFLUAB #### [facility] [address] [place] [address] Dr. Marium Gallegos AGNegativeNormalNEGATIVE SEE COMMENTThe [facility] on above:Performed By: #### INFLUAB #### [facility] [address] [place] [address] Dr. Marium RiversUPLEMUEL [facility] HospitalComment on above: Result Comment: NOTE: Live attenuated influenzae vaccine viruses can cause a positive result for a rapid influenza diagnostic test if administered up to 7 days prior to rapid testing.Performed By: #### INFLUAB #### [facility] [address] [place], [place] [address] Dr. Marium MurilloINTERNAL CONTROLSWithin Normal LimitsNormalWithin Normal Limits The [facility] CenterComment on above:Performed By: #### INFLUAB #### [facility] [address] [place], [place] [address] Dr. Marium MurilloCovid-19 PCR ([facility]VDNORFOLK [facility])on 82-47-2144JPJF-CoV-2 (COVID-19) RNA MICHELL+probe Ql (Unsp spec)Not detectedNormalNOT DETECTEDThe [facility] Comment on above:Result Comment: This test is not yet approved or cleared by the [place] FDA. When there are no FDA-approved or cleared tests available, and other criteria are met, FDA can make tests available under an emergency access mechanism called an Emergency Use Authorization (EUA). The EUA for this test is supported by the Industry of Health and Human Service's (HHS's) declaration that circumstances exist to justify the emergency use of in vitro diagnostics for the detection and/or diagnosis of the virus that causes COVID- 19. This EUA will remain in effect (meaning [...] of clinical signs and symptoms consistent with SARS-CoV-2.Performed By: #### CVDTBH #### [facility] [address] [place], [place] [address] Dr. Marium MurilloMG MAMM SCREEN 3D JOSÉ MIGUEL CADon [id number] MAMM SCREEN 3D JOSÉ MIGUEL CAD Patient: EMILY WATKINS Exam Date: 05/09/2022 : 1960 Gender:F Ordering : DR RICHARD FREEMAN . Admission #: [id number] Family : Order #: [id number] CLICK HERE TO VIEW EXAM RADIOLOGY REPORT [...] prostate cancer at age 50. LOCATION: [facility] BREAST COMPOSITION: Almost entirely fatty. [...] PALPABLE LUMP SHOULD BE BIOPSIED. Dictated by: Monica Price M.D. on 05/11/2022 at 13:23 Approved by: Monica Price M.D. on 05/11/2022 at 13:25[facility] RehabilitationCNPNon [id number] ([facility]) EMILY CALLES ([id number]) 1960 F Date Time Provider Department 07/25/21 VINAY HALL [facility] During your visit today, we recorded the following information about you: Chanel Richard [facility] 07/25/2021 9:15 AM Signed Additional [place] paperwork from [employer] being faxed for completion. Patient saw Dr. Hall on and was cleared to return to work. However, her employer is redirecting her to [employer] for return clearance. New return to work date on 07/27/2021 Lalitha can be reached at [phone] with any questions. Chanel Richard Pss Ivania Slater MA 07/25/2021 3:41 PM Signed Noted. I will drop off paperwork at [facility] so that Myra can have Dr. Hlal sign off on and fax tomorrow. JUVENAL Carrillo MA 07/27/2021 2:46 PM Signed Employer Forms for Patient/Caregiver Time Off of Work Completed, signed by provider, and returned to below contact. Completed copy scanned in [facility] Date of Surgery: 06/24/2021 Estimated RTW date:07/25/2021 Employer: [employer] Date sent to employer: 07/27/2021 Received fax confirmation: YES Allergies As of Date: 07/25/2021 (No Known Allergies) Date Reviewed: 07/21/2021 Reviewed by: Vinay Hall MD - Fully Assessed Reason for Visit: [place] Paperwork [6559] Prescriptions as of 07/27/2021 - oxyCODONE IR [...] [E66.01] Encounter Status:Closed by RODRÍGUEZ WILSON on 07/27/21[facility] [id number] TextOhio[facility] [id number] Visit (CORSAV) EMILY CALLES ([id number]) 1960 F Date Time Provider Department 07/21/21 [...] MD Colorectal Surgery Referring Provider: VINAY HALL [[id number]] Allergies As of Date: 07/21/2021 (No Known [...] fenofibrate nanocrystallized (TRICOR) 145 (more content not included)...Normal [facility] CenterConsultation Noteon 61-35-2970Tqyoyrcofofj Note [id number]#1.00CD:127[facility] HealthCNPNon [id number] ([facility]) EMILY CLALES ([id number]) 1960 F Date Time Provider Department 06/28/21 VINAY HALL [facility] During your visit today, we recorded the following information about you: Chanel Richard [facility] 06/28/2021 9:25 AM Signed Patient called with concerns of a itchy rash on her upper abdomen that has gotten bigger over the last few days. Noticed after her Lovenox injection. Patient can be reached at [phone]. Chanel Richard [facility] Kristopher Szymanski RN 06/28/2021 10:49 AM Signed Returned call and spoke with patient, S/p Laparoscopic Proctosigmoidectomy (Low Anterior Resection), Laparoscopic Mobilization of Splenic Flexure, Flexible Sigmoidoscopy, Laparoscopic Omental Pedicle Flap 06/24 Cc: rash to torso -pt c/o a red, raised, itchy rash to torso -pt states it was noticed Sunday evening before discharge from [facility] -denies chest pain or shortness of [...] Morbidly obese (HCC) [E66.01] Encounter Status:Closed by KRISTOPHER SZYMANSKI on 06/28/21NoSt. Mary's Medical CenterCNPNTelephone (PODCCP) EMILY CALLES ([id number]) 1960 F Date Time Provider Department 06/28/21 ELLIOTT MORA PODCCP During your visit today, we recorded the following information about you: Elliott Mora, Student 06/28/2021 11:19 AM Signed Record ID: [id number] Patient Name: Emily Jaime Chastity [facility]: [place]: [facility] [place] Attending: Viany Hall Center: Colorectal Surgery INSTRUCTIONS Continue with script and ensure patient has appropriate number for [facility] or Appointment Center according to discharging physician?s specialty and location at end of call SN TRANSFER TO [facility] SURVEY INFORMATION Medical/Nurse Homeland Security Program Specialist: Luisa Gallagher 1. Your discharge instructions are [...] Morbidly obese (HCC) [E66.01] Encounter Status:Closed by ELLIOTT MORA on 06/28/21[facility] Metabolic Panlon 68-91-2840Zekgr gap [Moles/Vol]9 mmol/LNormal 9-18[facility] HospitalComment on above:Performed By: #### ANDRESSA CBCDIF #### [place] [phone] [Mass/Vol]8.7 mg/dLNormal8.5-10.5[facility] HospitalComment on above:Performed By: #### ANDRESSA, CBCDIF #### [place] [phone] [Moles/Vol]109 mmol/DFrxxay92-286Xmmimqij HospitalComment on above:Performed By: #### ANDRESSA, CBCDIF #### [place] [phone] [Moles/Vol]25 mmol/FAaiexg86-32Hzqncurd HospitalComment on above:Performed By: #### ANDRESSA, CBCDIF #### [place] [address]Creatinine [Mass/Vol]0.54 mg/dLLow0.70-1.40[facility] HospitalComment on above:Performed By: #### ANDRESSA, CBCDIF #### [place] [phone]- Amer.>60Normal>60[facility] HospitalComment on above: Performed By: #### ANDRESSA, CBCDIF #### [place] [phone]-All Other Races>60Normal>60[facility] HospitalComment on above: Result Comment: eGFR (Estimated GFR) [...] the eGFR may not accurately reflect actual GFR.Performed By: #### ANDRESSA CBCDIF #### [place] [phone] [Mass/Vol]78 mg/aVIjglpu21-681Mefvlkds HospitalComment on above:Performed By: #### ANDRESSA CBCDIF #### [place] [phone] [Moles/Vol]4.1 mmol/LNormal3.5-5.0[facility] HospitalComment on above:Performed By: #### ANDRESSA CBCDIF #### [place] [phone] [Moles/Vol]143 mmol/XUvziif213-597Gudwmqdh HospitalComment on above:Performed By: #### ANDRESSA CBCDIF #### [place] [phone] nitrogen [Mass/Vol]13 mg/dLNormal8-25[facility] HospitalComment on above:Performed By: #### ANDRESSA CBCDIF #### [place] [phone] and Differentialon 99-51-3439Hdb Baso<0.03Normal<0.11[facility] HospitalComment on above:Performed By: #### ANDRESSA CBCDIF #### [phone] Mono0.71 k/uLNormal<0.87[facility] HospitalComment on above: Performed By: #### BMP, CBCDIF #### [place] [phone] Neut4.13 k/uLNormal1.45-7.50[facility] HospitalComment on above: Performed By: #### ANDRESSA, CBCDIF #### [place] [phone] nRBC<0.01Normal<0.01[facility] HospitalComment on above: Performed By: #### ANDRESSA, CBCDIF #### [place] [phone]/100 WBC (Bld)0.3 %NormalOsceola HospitalComment on above: Performed By: #### ANDRESSA, CBCDIF #### [place] [phone] DiffNormalFaLyman School for BoysComment on above:Performed By: #### ANDRESSA, CBCDIF #### [address]Eosinophils (Bld) [#/Vol]0.13 10*3/uLNormal<0.46[facility] Hospital Comment on above:Performed By: #### ANDRESSA, CBCDIF #### [place] [phone]/100 WBC (Bld)2.0 %NormalOsceola HospitalComment on above:Performed By: #### BMP, CBCDIF #### [address]Erythrocyte distribution width (RBC) [Ratio]12.6 %Nwfbxp02.5-15.0 [facility] CenterComment on above:Performed By: #### BMP, CBCDIF #### [place] [phone] (Bld) [Volume fraction]33.7 %Low36.0-46.0[facility] CenterComment on above:Performed By: #### BMP, CBCDIF #### [phone] (Bld) [Mass/Vol]11.0 g/dLLow11.5-15.5FUMass Memorial Medical Center Comment on above:Performed By: #### BMP, CBCDIF #### [place] [phone] (Bld) [#/Vol]1.49 10*3/uLNormal1.00-4.00[facility] CenterComment on above:Performed By: #### BMP, CBCDIF #### [phone]/100 WBC (Bld)23.0 %NormalAmesbury Health CenterComment on above:Performed By: #### BMP, CBCDIF #### [place] [phone] tRDiwnmq87.0-34.0[facility] CenterComment on above:Performed By: #### BMP, CBCDIF #### [place] [phone] (RBC) [Mass/Vol]32.6 g/cMMcmwiw06.5-36.0[facility] Comment on above:Performed By: #### BMP, CBCDIF #### [place] [phone] (RBC) [Entitic vol]90.1 hMCgbzsu44.0-100.0[facility] Comment on above:Performed By: #### BMP, CBCDIF #### [place] [phone]/100 WBC (Bld)11.0 %NormalOsceola HospitalComment on above:Performed By: #### BMP, CBCDIF #### [phone]/100 WBC (Bld)63.7 %NormalOsceola HospitalComment on above:Performed By: #### BMP, CBCDIF #### [phone] /100 EWGRzeiqh0Nedkqpgf HospitalComment on above:Performed By: #### BMP, CBCDIF #### [place] [phone] mean volume (Bld) [Entitic vol]13.5 fLHigh9.0-12.7[facility] HospitalComment on above:Performed By: #### ANDRESSA, CBCDIF #### [phone] (Bld) [#/Vol]127 10*3/pERue541-525Dmzqbkbk HospitalComment on above:Performed By: #### BMP, CBCDIF #### [phone] (Bld) [#/Vol]3.74 10*6/uLLow3.90-5.20[facility] HospitalComment on above:Performed By: #### BMP, CBCDIF #### [phone] (Bld) [#/Vol]6.48 10*3/uLNormal3.70-11.00[facility] Comment on above:Performed By: #### ANDRESSA, CBCDIF #### [phone] 21-13-2754VYRYVIW ID: [id number] Author: Naa Garcia MD Service: Colorectal Author [...] a liquid diet on POD1 and the Sampson was removed later that day. She was [...] TIME: 8:36 AM Naa Garcia MD 10:04 [facility] 05-92-0899QLLIDKM PROGHNO ID: [id number] Author: Mai Stevens RN Service: ? Author Type: Registered Nurse Type: Nursing Progress Note Filed: 06/26/2021 5:48 PM Note Text: Nursing Progress Note Patient Name: Emily Haywood Patient Location: / Daily Note: 0800: Patient awake in bed [...] discharge. This note was completed by: Mai LandrumBaystate Noble Hospital ID: [id number] Author: Nely Anne RN Service: ? Author Type: Registered Nurse Type: Nursing Progress Note Filed: 06/26/2021 1:16 AM Note Text: Nursing Progress Note Patient Name: Emily Haywood Patient Location: /FV-GA5E-32 Daily Note:(late entry for 2199) Pt aANDox3 upon assessment. Lungs clear on room air. Bowel sounds present. Pt states she is passing flatus. Lap sites and transverse incision brissa with glue. Pt tolerating limited clears diet, no c/o n/v. Sampson draining yellow,clear. PAS stockings on. Using dilaudid RN AMBULATORY for pain. Safety maintained. Will continue to monitor at this time. 2214: Pt had a BM in the toilet that was mixed with urine. This RN checked pt's sampson and it is still intact and still in pt. Text-paged SROC making aware. 2324: Spoke with SROC who advised to monitor pt's sampson for now. 99: Removed pt's sampson per order. Hats put in toilet to measure pt's urine output. This note was completed by: Nely [facility]Har[facility] Hospital Metabolic Panlon 44-83-2396Bxgao gap [Moles/Vol]8 mmol/LLow9-18[facility] HospitalComment on above:Performed By: #### ANDRESSA, CBCDIF ####[place] [phone] [Mass/Vol]9.3 mg/dLNormal8.5-10.5 [facility] CenterComment on above:Performed By: #### ANDRESSA, CBCDIF ####[place] [phone] [Moles/Vol] 108 mmol/FRpnyzk42-669Szzvvxdo HospitalComment on above:Performed By: #### ANDRESSA, CBCDIF ####[place] [phone] CO2 [Moles/Vol]25 mmol/TVnqrpx06-99Qebawhll HospitalComment on above:Performed By: #### BMP, CBCDIF ####[place] [phone] [Mass/Vol]0.52 mg/dLLow0.70-1.40[facility] Comment on above:Performed By: #### ANDRESSA CBCDIF ####[place] [phone]-African Amer.>60Normal>60 [facility] CenterComment on above:Performed By: #### ANDRESSA CBCDIF ####[place] [phone]-All Other Races >60Normal>60[facility] CenterComment on above:Result Comment: eGFR (Estimated GFR) Units of measure: [...] the eGFR may not accurately reflect actual GFR.Performed By: #### ELSY CRISOSTOMODIF ####[place] [phone] [Mass/Vol]104 mg/mQExcj40-517Rdjqptqr HospitalComment on above:Performed By: #### ANDRESSA CBCDIF ####[place] [phone] [Moles/Vol]4.3 mmol/LNormal3.5-5.0[facility] Comment on above:Performed By: #### ANDRESSA CBCDIF ####[place] [phone] [Moles/Vol]141 mmol/LNormal 132-148FaLyman School for BoysComment on above:Performed By: #### BMP, CBCDIF ####[facility] [place], [place] [phone] nitrogen [Mass/Vol]11 mg/dLNormal06-29[facility] CenterComment on above:Performed By: #### ANDRESSA, CBCDIF ####[facility] [place], [place] 70589006-508-3015UKKN MGT INIT NATALIEon 08-53-0429BQNQ MGT INIT LANENO ID: [id number] Author: RAGHAV Hendricks Service: ? Author Type: Hand Braille Transcriber Type: Care Mgt Initial Assessment Filed: 06/25/2021 11:47 AM Note Text: CARE MANAGEMENT: ASSESSMENT AND DISCHARGE PLAN SERVICE DATE: June 25, 2021 SERVICE TIME: 11:42 AM PRIMARY CARE PHYSICIAN: Mikel Ruiz MD ADMISSION STATUS: Inpatient Needs Prior to Discharge: To Be Determined MEDICAL: [facility] GENERIC Patient/Mortar Carrier Stated Goals: To have reduction in symptoms;To have reduction in pain;To return home to life as it was Health Insurance: [facility] Issues Impacting Discharge Plan: Chronic (s/p laparoscopic hand assisted LAR) Chronic: sigmoid mass, hypothyroidism, IBD, mixed HLD, depression, morbid obese Last Discharge Date: 06/09/21 Is this Within the Past 30 days? Last discharge within 30 days: No Advance Directive: Current Advance Directive: Health Care Power of Lifestyle Consultant In Chart: Yes Up To Date and [...] None Has the Patient Been in a Alf Facility in the Past 30 days?: No SOCIAL: Living Arrangements: Home Lives With: Spouse Financial Resources: Employed Primary Contact: Extended Emergency Contact Information Primary Emergency Contact: Gerry Haywood Mobile Relation: Spouse Supportive Patient Contact:: Yes [...] Completely I feel financially burdened by my yek-al-ienqtj expenses for my prescription medication:: 0 - Disagree Completely Risk Score: 0 Are you interested in bedside delivery of your medications? No Is Patient Psychosocially Complex?: No ASSESSMENT AND PLAN: Medical Needs: Medical Needs: Two or more chronic diseases Psychosocial Needs: Psychosocial Needs: None FREEDOM OF CHOICE EXPLAINED: [place] of Choice Given: No Reason Not Given: [...] 25, 2021 TIME: 11:40 AM PAGER/CONTACT #: [phone] HospitalCBC and Differentialon 91-20-7741Fge Baso<0.03Normal<0.11FaLyman School for BoysComment on above:Performed By: #### KAYLEIGH CRISOSTOMO ####[address] [phone] Eosin<0.03Normal<0.46FaLyman School for Boys Comment on above:Performed By: #### CAMILA CRISOSTOMOF ####[place] [phone] Mono1.10 k/uLHigh<0.87[facility] HospitalComment on above:Performed By: #### BMP, CBCDIF ####[place] [phone] Neut8.30 k/uLHigh 1.45-7.50[facility] HospitalComment on above:Performed By: #### ANDRESSA, CBCDIF ####[place] [phone] nRBC<0.01Normal<0.01[facility] HospitalComment on above:Performed By: #### ANDRESSA, CBCDIF ####[place] [phone] Basophils/100 WBC (Bld)0.1 %NormalOsceola HospitalComment on above:Performed By: #### ANDRESSA, CBCDIF ####[place] [phone] DiffNormalAmesbury Health CenterComment on above:Performed By: #### ANDRESSA, CBCDIF ####[place] [phone]/100 WBC (Bld)0.0 %NormalWrentham Developmental Centerment on above:Performed By: #### ANDRESSA, CBCDIF ####[place] [phone] distribution width (RBC) [Ratio]12.2 %Usxhju71.5-15.0[facility] HospitalComment on above:Performed By: #### BMP, CBCDIF ####[place] [phone] (Bld) [Volume fraction]35.8 %Low36.0-46.0[facility] CenterComment on above:Performed By: #### BMP, CBCDIF ####[place] [phone] (Bld) [Mass/Vol]11.5 g/dRDtqpeq06.5-15.5[facility] HospitalComment on above:Performed By: #### ANDRESSA, CBCDIF ####[place] [phone] (Bld) [#/Vol]0.86 10*3/uLLow1.00-4.00[facility] HospitalComment on above:Performed By: #### BMP, CBCDIF ####[place] [phone]/100 WBC (Bld)8.4 %NormalOsceola HospitalComment on above:Performed By: #### ANDRESSA, CBCDIF ####[place] [phone] zBAgxfdh37.0-34.0[facility] HospitalComment on above:Performed By: #### ANDRESSA, CBCDIF ####[place] [phone] MCHC (RBC) [Mass/Vol]32.1 g/iXXibhsx14.5-36.0[facility] HospitalComment on above: Performed By: #### ANDRESSA, CBCDIF ####[place] [phone] (RBC) [Entitic vol]90.4 fLNormal 80.0-100.0[facility] HospitalComment on above:Performed By: #### BMP, CBCDIF ####[place] [phone] Monocytes/100 WBC (Bld)10.7 %NormalOsceola HospitalComment on above:Performed By: #### BMP, CBCDIF ####[place] [phone]/100 WBC (Bld)80.8 %NormalOsceola HospitalComment on above:Performed By: #### BMP, CBCDIF ####[place] [phone] /100 DJPUysoha8Xbjoylkt Hospital Comment on above:Performed By: #### ANDRESSA CBCDIF ####[place] [phone] mean volume (Bld) [Entitic vol]13.4 fLHigh9.0-12.7[facility] HospitalComment on above:Performed By: #### ANDRESSA CBCDIF ####[place] [phone] Platelets (Bld) [#/Vol]144 10*3/iIZkr943-145Tkpvmxtl HospitalComment on above: Performed By: #### ANDRESSA CBCDIF ####[place] [phone] (Bld) [#/Vol]3.96 10*6/uLNormal 3.90-5.20[facility] HospitalComment on above:Performed By: #### ANDRESSA CBCDIF ####[place] [phone] (Bld) [#/Vol]10.27 10*3/uLNormal3.70-11.00[facility] HospitalComment on above:Performed By: #### ANDRESSA CBCDIF ####[place] [phone] PROGon 21-43-3020LPPXRVZ PRONO ID: [id number] Author: Fatoumata Goyal RN Service: ? Author Type: Registered Nurse Type: Nursing Progress Note Filed: 06/25/2021 4:41 AM Note Text: Nursing Progress Note Patient Name: Emily Haywood Patient [facility]: [facility]07/IJ8G-75 Transfer Note: 2020 (late entry): Patient transferred into room/unit CN9Z-98 in stable condition. Actions taken: No futher actions taken at this time. Will continue to monitor and check with patient. Pt alert and oriented, weaned off O2, satting 96% on RA. Bowel sounds hypoactive x 4 quadrants. Dilaudid RN AMBULATORY pump at 0.2 6 10. Transverse incision and laparoscopic sites BRISSA with glue, no drainage. Sampson draining clear yellow urine. ODETTE on the Right draining bloody. 0441: Text paged surgery FT2K-44 Emily Calles. Pt automatic BP 95/49 and manual is 99/39. Just wanted to make aware. Thanks. Fatoumata [phone] This note was completed by: Fatoumata Med[facility] State HospitalANES POSTPROC EVALon 33-55-4307TEIC POSTPROC EVALHNO ID: [id number] Author: Chaz Mckeon MD Service: Anesthesiology Author Type: Anesthesiologist Type: Anesthesia Postprocedure Evaluation Filed: 06/24/2021 7:03 PM Note Text: POST ANESTHESIA EVALUATION NOTE : 1960 Procedure Summary Date: 06/24/21 Room / Location: [place] [address] / OR Anesthesia Start: 1325 Anesthesia Stop: 1756 Procedure: LAPAROSCOPIC COLECTOMY SIGMOID COLON W/ COLORECTAL ANASTOMOSIS (Left Abdomen) Diagnosis: Mass of colon (Mass of colon [K63.89]) Surgeons: Vinay Hall MD Responsible Provider: Chaz Mckeon MD Anesthesia Type: general ASA Status: 3 Anesthesia Type: general Last vitals Vitals Value Taken Time BP 102/70 06/24/21 1900 Temp 36 ?C (96.8 ?F) 06/24/21 1754 Pulse 76 06/24/21 1903 Resp 13 06/24/211902 SpO2 95 % 06/24/211902 Vitals shown include [...] June 24, 2021 TIME: 7:03 PM CSN: [id number] Hospital PRE-OPon 25-86-2489GDJG PRE-OPHNO ID: [id number] Author: Fidel Grant DO Service: Anesthesiology Author [...] June 24, 2021 TIME: 12:25 PM CSN: [id number] [facility] [place] NOTon 06-24-2021 BRIEF OP NOTHNO ID: [id number] Author: Naa Garcia MD Service: Colorectal Author Type: Resident Type: Brief Op Note Filed: 06/24/2021 5:48 PM Note Text: BRIEF OPERATIVE NOTE - COLORECTAL SURGERY Log ID: [id number] Surgery/Procedure Date: 06/24/2021 Incision/Procedure Start Time: 2:17 PM Incision Close/Procedure End Time: 5:37 PM Surgeon(s) and Homeland Security Program Specialist(s): Surgeon(s) and Role: * Vinay Hall MD [...] Diagnosis: Sigmoid mass Drains: Yes, 19fr round aurora in pelvis Wound Classification: Class 3, operative wound contaminated with gross spillage from the gastrointestinal tract Complications: None SIGNATURE: Naa Garcia MD PATIENT NAME: Emily Haywood DATE: June 24, 2021 TIME: 5:43 [facility] PHYSICALon [id number] PHYSICALHNO ID: [id number] Author: Naa Garcia MD Service: Colorectal Author [...] [place] DATE: June 24, 2021 TIME: 12:44 [facility] PROn [id number] PROGHNO ID: [id number] Author: Silva Hernandez RN Service: Nursing Author [...] PROVIDED TO PATIENT: None REFERRAL (RECOMMENDATION): None BFNXZLXZO [facility] ID: [id number] Author: Vinay Hall MD Service: Colorectal Author Type: Physician Type: Operative Report Filed: 06/24/2021 5:45 PM Note Text: COLON AND RECTAL SURGERY OPERATIVE REPORT PATIENT NAME: Emily Haywood ADMISSION DATE: 06/24/2021 LOG ID: [id number] SURGERY/PROCEDURE DATE: 06/24/2021 INCISION/PROCEDURE START TIME: 2:17 PM INCISION CLOSE/PROCEDURE END TIME: 5:37 PM AGE: [age] year old SEX: female SURGEON(S)/PROCEDURALIST(S) AND PLAYGROUND DIRECTOR(S): Surgeon(s) and Role: * Vinay Hall MD [...] and appeared healthy and patent. A 19 Aurora drain was placed in the pelvis. The abdomen was irrig (more content not included)...[facility] CenterURGICAL PATHOLOGYon [id number] PATHOLOGYSpecimen originated from [facility] Specimen #: [id number] Submitting Physician: VINAY HALL MD FINAL DIAGNOSIS [...] examination only. (Oshilaja) Intraoperative diagnosis performed at [facility], [address] [address] [place] [place] [address] GROSS DESCRIPTION A. Received fresh designated sigmoid [...] 0.8 cm. The bowel does lie flat. Mortar Carrier sections are submitted as follows: A1 proximal margin perpendicular (inked orange), A2 distal margin perpendicular (inked blue), A3-A11 entire lesion submitted in sequential order from proximal to distal, A12 mesenteric margin perpendicular (inked black), A13 circumferential margin perpendicular (inked black), A14 thickened mucosa, A15 four intact possible lymph nodes, A16 four intact possible lymph nodes. WE/sld 06/27/2021 B. Received in formalin designated distal donut is a donut that measures 1.5 cm in length x 1.5 cm in diameter. The mucosa is hyperemic. The wall thickness is 0.2 cm. Mortar Carrier sections are submitted in one cassette. WE/giovanny 06/27/2021 Gross examination performed at [facility], [address] [place] [address] Date of Report: 06/29/2021 Date of Procedure: 06/24/2021 Date of Receipt: 06/24/2021 Submitted by: VINAY HALL MD Location: [facility] Diagnostic interpretation performed at [facility], [address] [place] [address].CLIA Number: [id number] HospitalCNPNon [id number] ([facility]) EMILY CALLES ([id number]) 1960 F Date Time Provider Department 06/23/21 VINAY HALL [facility] During your visit today, we recorded the following information about you: Melissa Ward 06/23/2021 8:52 AM Signed Patient called regarding FMLA return call to [phone] Ivania Slater MA 06/23/2021 9:08 AM Signed Called the patient. Patient wanted to know if FMLA paperwork from [employer] was completed yet and faxed because she is calling [employer] and sending emails and has not received a call or email advising if they received the paperwork. I advised the patient that I completed the paperwork and faxed it to [employer] [phone], 17 pages and confirmation received. Patient verbally understood. If any further problems or questions advised that patient or her HR department can call me. JUVENAL Carrillozabeth Jose Manuel [facility] 06/29/2021 11:42 AM Signed Received voicemail from patient. Anamika at [facility], called patient and needs more information regarding her time off in order to pay her. Anamika can be reached at [phone]. Please call Lalitha after with an update, . Chanel Jose Manuel [facility] Ivania Slater MA 06/29/2021 12:11 PM Signed Called Anamika at [facility]. Left a voicemail to return call. Ivania Slater MA 06/29/2021 1:27 PM Signed Return to work date corrected to reflect 08/05/21.Faxed correction to [facility] [phone]. Confirmation received. Scanned to patient chart. Called Anamika at [facility] left a message on her voicemail advising of the above. Called patient Lalitha and left a message on her voicemail advising of the above. Ivania Slater MA Allergies As of Date: 06/23/2021 (No Known Allergies) Date Reviewed: 06/17/2021 Reviewed by: Dawna Leyva APRN.CLASSIFIED ADVERTISING MANAGER - Fully Assessed Reason for Visit: [facility] Paperwork [4610] Prescriptions as of 06/29/2021 - enoxaparin (LOVENOX) [...] [E66.01] Encounter Status:Closed by IVANIA SLATER on 06/23/21[facility] Check COVIDon 30-08-8364WXNV-CoV-2 (COVID-19) RNA MICHELL+probe Ql (Unsp spec)UPPER RESPIRATORY TRACT SWABNormalCChildren's Hospital for Rehabilitationment on above:Performed By: #### PREALB #### [place] [address] LCZJ-CoV-2 (COVID-19) RNA MICHELL+probe Ql (Unsp spec)Negative for COVID19 (SARS CoV2) by RT-PCR or equivalent method.NormalNegative for COVID19 (SARS CoV2) by RT-PCR or equivalent method.[facility] on above:Result Comment: This test was developed and its performance characteristics determined by [facility] [place]. This test has been authorized by FDA under an Emergency Use Authorization (EUA). This test has been validated in accordance with the FDA's Guidance Document Policy for DiagnosticsTesting in Laboratories Certified to Perform High Complexity Testing under CLIA prior to Emergency use Authorization for Coronavirus Disease 2019 during the Public Health Emergency issued on January 03, 2020. Test performed by [facility], [facility] [place], [facility] [place] [address].Performed By: #### PREALB #### [facility] [address] [place], [place] [address] Xsrwsig Blood Typeon 75-69-2856VZX/RH(D)PositiveNormalFairuc medical center HospitalComment on above:Performed By: #### CONABO ####[facility] [place], [place] [id number] PHYSICALon 30-54-9278RCDHQGN PHYSICALHNO ID: [id number] Author: Dawna Leyva APRN.BECKI Service: ? Author Type: Nurse Practitioner Type: [...] CAD, chest pain, CHF, DVT/PE, hypertension, recent CT and murmur/valvular heart disease. GI: SEE HPI : Positive for: nocturia >1 time per night. Negative for: dysuria, frequent urination, hematuria, nephrolithiasis, renal failure, urgency and urinary tract infection. EGG CASER: Negative for abnormal vaginal bleeding, abnormal vaginal [...] - SIGMOIDOSCOPY 2020 - TONSILLECTOMY HX 1963 FAMILY HISTORY Problem Relation Age of Onset [...] at 6 pm, again (more content not included)...NormalMedina HospitalType and SCR (30D)on 24-26-7702IQX/RH(D)PositiveNormalFairuc medical center HospitalComment on above: Performed By: #### TSCR30 ####[facility] [place], [place] [phone] [id number] ([facility]) EMILY CALLES ([id number]) 1960 F Date Time Provider Department 06/13/21 VINAY HALL [facility] During your visit today, we recorded the following information about you: Josefa Mancini 06/13/2021 8:22 AM Signed Received FMLA/STD paperwork on 06/13/21 Pending physician signature and completion. Surgeon: Dr. Hall Date of Surgery (if known): 06/24/21 Ivania Slater MA 06/14/2021 12:07 PM Signed FMLA paperwork completed and faxed to [facility] at [phone]. Confirmation received. Scanned to patient chart. JUVENAL Carrillo MA 06/29/2021 8:19 AM Signed Also received FMLA paperwork on 06/28/21 from Zuri Irby at [facility]. . . Employer Forms for Patient/Caregiver Time Off of Work Completed, signed by provider, and returned to below contact. Completed copy scanned in [facility] Date of Surgery: 06/24/21 Estimated RTW date:07/06/21 Employer: [employer] Date sent to employer: 06/29/21 Received fax confirmation: YES Allergies As of Date: 06/13/2021 (No Known Allergies) Date Reviewed: 06/09/2021 Reviewed by: Evangelina Benson RN - Fully Assessed Reason for Visit: FMLA Paperwork [1083] Prescriptions as of 06/29/2021 - enoxaparin (LOVENOX) [...] 06/09/2021 Encounter Status:Closed by IVANIA SLATER on 06/14/21[facility] HospitalTORY PHYSICALon 43-35-3895HHBZCJD PHYSICALHNO ID: [id number] Author: Narcisa Prakash PA-C Service: Orthopaedic Surgery Author Type: Physician Homeland Security Program Specialist Type: HANDP Filed: 06/09/2021 12:02 PM Note [...] DATE: June 09, 2021 TIME: 11:56 AM PAGER:[facility]woodURGICAL PATHOLOGYon 89-45-8206HFTPKFGZ PATHOLOGYSpecimen originated from [facility] Specimen #: [id number] Submitting Physician: VINAY HALL MD FINAL DIAGNOSIS [...] in one cassette. Gross examination performed at [facility], [address] [place] [address] TTN 06/09/2021 9:17:28 PM Date of Report: 06/13/2021 Date of Procedure: 06/09/2021 Date of Receipt: 06/09/2021 Submitted by: VINAY HALL MD Location: [facility] Diagnostic interpretation performed at [facility], [address] [place] [address], [place] [address]. CLIA Number: [id number] Clinic Reference LabComment on above:Performed By: #### S #### See report for performing lab information.Frank [id number] ([facility]) JAIME CHASTITYEMILY ([id number]) 1960 F Date Time Provider Department 06/03/21 VINAY HALL [facility] During your visit today, we recorded the following information about you: Myra Fuenets RN 06/03/2021 11:08 AM Signed Call placed [...] By: Myra Fuentes RN BSN DDSI Specialty Product Scientist Myra Fuentes RN 06/03/2021 12:21 PM Signed Addended by: MYRA FUENTES on: 06/03/2021 12:21 PM Modules accepted: Orders Allergies As of Date: 06/03/2021 (No Known Allergies) Date Reviewed: 06/02/2021 Reviewed by: Vinay Hall MD - Fully Assessed Reason for Visit: Pre-Op Teaching [134] Schedule Surgery [1330] Primary Visit Diagnosis:Polyp of colon, unspecified part of colon, unspecified type [K63.5] Order(s):SIGMOIDOSCOPY [0302318] Order #: [id number] FUTURE neomycin 500 mg tabletTake 2 tablets [...] surgery Encounter Status:Closed by MYRA FUENTES on 06/03/21NormalCSelect Medical Specialty Hospital [facility] and Differentialon 94-36-9364Xxv Baso<0.03Normal<0.11CSCCI Hospital [facility] on above:Performed By: #### PREALB #### [place] [address] [place] [phone] Mono0.73 k/uLNormal<0.87[facility] on above:Performed By: #### PREALB #### [place] [phone] Neut3.93 k/uLNormal1.45-7.50[facility] Hospitalment on above:Performed By: #### PREALB #### [phone] nRBC<0.01Normal<0.01[facility] on above:Performed By: #### PREALB #### [phone]/100 WBC (Bld)0.3 %NormalUniversity Hospitals Geneva Medical CenterComment on above:Performed By: #### PREALB #### [place] [phone] DiffNormalClevelUniversity Hospitals Ahuja Medical Center on above: Performed By: #### PREALB #### [place] [phone] (Bld) [#/Vol]0.21 10*3/uLNormal<0.46[facility] on above:Performed By: #### PREALB #### [place] [phone]/100 WBC (Bld)3.2 %NormalUniversity Hospitals Geneva Medical Center Comment on above:Performed By: #### PREALB #### [place] [phone] distribution width (RBC) [Ratio]12.5 %Nfqsih27.5-15.0 [facility] on above:Performed By: #### PREALB #### [place] [address] [place] [address] Ilqkyvckge (Bld) [Volume fraction]42.6 %Bisonb31.0-46.0[facility] on above:Performed By: #### PREALB #### [place] [address] [place] [address] Ztoqbqppiy (Bld) [Mass/Vol]13.5 g/gVScqkbh63.5-15.5CSCCI Hospital [facility] on above:Performed By: #### PREALB #### [place] [address] Zdoseyrrgwd (Bld) [#/Vol]1.60 10*3/uLNormal1.00-4.00[facility] on above:Performed By: #### PREALB #### [place] [address] [place], [place] [address] Oszhkjimjyb/100 WBC (Bld)24.6 %NormalUniversity Hospitals Geneva Medical Center Comment on above:Performed By: #### PREALB #### [place] [address] [place], [place] [address] GEW84.9 nEScicza15.0-34.0[facility] on above: Performed By: #### PREALB #### [place] [address] [place], [place] [address] YLKW (RBC) [Mass/Vol]31.7 g/hXTfmmhg21.5-36.0[facility] on above:Performed By: #### PREALB #### [place] [address] [place], [place] [address] PWL (RBC) [Entitic vol]91.2 gVKhaxgj40.0-100.0[facility] on above:Performed By: #### PREALB #### [place] [address] [place] [address] Mwosxhhea/100 WBC (Bld)11.2 %NormalUniversity Hospitals Geneva Medical CenterComment on above:Performed By: #### PREALB #### [place] [address] Iashjqpygbt/100 WBC (Bld)60.7 %NormalUniversity Hospitals Geneva Medical Center Comment on above:Performed By: #### PREALB #### [place] [address] QWVPo3.0 /100 XOAFyqzvo5FqqdgdwzsLake County Memorial Hospital - [facility] on above: Performed By: #### PREALB #### [place] [address] Nlrkycqj mean volume (Bld) [Entitic vol]12.7 fLNormal9.0-12.7 [facility] on above:Performed By: #### PREALB #### [place] [address] Bfrypatqg (Bld) [#/Vol]171 10*3/uGEnoqhy035-102XfohaztdlLake County Memorial Hospital - [facility] on above:Performed By: #### PREALB #### [place] [address] HER (Bld) [#/Vol]4.67 10*6/uLNormal3.90-5.20[facility] on above:Performed By: #### PREALB #### [place] [address] ACL (Bld) [#/Vol]6.51 10*3/uLNormal3.70-00University Hospitals Geneva Medical CenterComment on above:Performed By: #### PREALB #### [facility] [address] [place], [place] [address] RYFMrt 53-34-3754NREQXzzamm Visit (CORSAV) EMILY CALLES ([id number]) 1960 F Date Time Provider Department 06/02/21 11:30 AM VINAY HALL During your visit today, we recorded the following information about you: Pulse Blood pressure Weight 62/minute 139/80 111.1 kg Vinay Hall MD 06/02/2021 12:44 PM Signed COLORECTAL SURGERY June 02, 2021 Emily Haywood 60 year old This consult was requested by Dr. Terrence Natarajan / Jenna and my final recommendations will be communicated to the requesting health care provider by way of the shared medical record for internal providers or letter via the [employer] for external providers. Chief Complaint: colon mass History of Present Illness: Emily Haywood is a 60 year old female presents with colon mass Colonoscopy with Dr David Natarajan - 05/04/21-colorectal screening --moderate descending and sigmoid [...] Reviewed/ordered: Review of prior notes from Dr. Natarajan - Review of Pathology - Review of Labs: CBC, BMP - Review of Procedures / Tests: Colonoscopy - Additional testing or imaging to be ordered: Flexible sigmoidoscopy Risk of morbidity, mortality and/or complications of treatment plan: high Vinay Hall MD Colorectal Surgery Referring Provider: TERRENCE NATARAJAN [[id number]] Allergies As of Date: 06/02/2021 (No Known Allergies) Date Reviewed: 06/02/2021 Reviewed by: Vinay Hall MD - Fully Assessed Reason for Visit: New Patient [172] Primary Visit Diagnosis:Polyp of colon, unspecified part of colon, unspecified type [K63.5] Order(s):CBC + DIFF [SQCBCDIF] Order #: [id number] FUTURE COMP METABOLIC PANEL [SQCMP] Order #: [id number] FUTURE PREALBUMIN BLD [SQPREALB] Order #: [id number] FUTURE ECG COMPLETE [ECG01] Order #: [id number] FUTURE Prescriptions as of 06/28/2021 - enoxaparin [...] Text Encounter Status:Closed by VINAY HALL on 06/02/21NormalCHolmes County [facility] Metabolic Panelon 89-03-2252Alajggw [Mass/Vol]4.2 g/dLNormal 3.9-4.9CChildren's Hospital for Rehabilitationment on above:Performed By: #### PREALB #### [facility] [address] [place], [place] [address] CZO [Catalytic activity/Vol]75 U/VPlktaj73-908ZzkzvevmpLake County Memorial Hospital - West on above:Performed By: #### PREALB #### [facility] [address] [place], [place] [address] GOZ [Catalytic activity/Vol]26 U/LNormal7-38[facility]field Hospitalment on above:Performed By: #### PREALB #### [facility] [address] [place], [place] [address] Nhrvs gap [Moles/Vol]8 mmol/LLow9-18[facility] Comment on above:Performed By: #### PREALB #### [facility] [address] [place], [place] [address] WZI [Catalytic activity/Vol]31 U/IXugkvi81-18ZcgkzcevwLake County Memorial Hospital - West on above:Performed By: #### PREALB #### [facility] [address] [place] [address] Pepmewxff [Mass/Vol]0.5 mg/dLNormal0.2-1.3CUniversity Hospitals Ahuja Medical Center Comment on above:Performed By: #### PREALB #### [place] [address] [place] [address] Ifjukxx [Mass/Vol]10.0 mg/dLNormal8.5-10.2CUniversity Hospitals Ahuja Medical Center Comment on above:Performed By: #### PREALB #### [place] [address] [place] [address] Fsgxeiuy [Moles/Vol]103 mmol/WUhihth26-210SjjuagpnxUniversity Hospitals Geneva Medical Center Comment on above:Performed By: #### PREALB #### [place] [address] [place] [address] LI4 [Moles/Vol]26 mmol/BVjqfzo72-20VnyathxyvUniversity Hospitals Geneva Medical CenterComment on above:Performed By: #### PREALB #### [place] [address] [place] [address] Sqoammlniu [Mass/Vol]0.54 mg/dLLow0.58-0.96University Hospitals Geneva Medical CenterComment on above:Performed By: #### PREALB #### [place] [address] jOKJ- Amer.>60NormalClevelWakeMed Cary HospitalComment on above:Performed By: #### PREALB #### [facility] [place] [address] zCZO-All Other Races>60NormalCUniversity Hospitals Ahuja Medical CenterComjohn d. dingell veterans affairs medical center on above:Result Comment: eGFR (Estimated GFR) Units of measure: [...] the eGFR may not accurately reflect actual GFR.Performed By: #### PREALB #### [facility] [address] [place] [address] Gkaxime [Mass/Vol]91 mg/iOXfqasj72-41NzjwbvtgcUniversity Hospitals Geneva Medical Center Comment on above:Result Comment: The Australian Diabetes Association (ADA) provides guidance for cutoff [...] Standards of Medical Care in Diabetes 2016, Australian Diabetes Association. Diabetes Care. 2016.39(Suppl 1).Performed By: #### PREALB #### [facility] [address] [place] [address] Pfovicxln [Moles/Vol]4.4 mmol/LNormal3.7-5.1CUniversity Hospitals Ahuja Medical CenterComment on above:Performed By: #### PREALB #### [facility] [address] [place], [place] [address] Biyqdfk [Mass/Vol]7.0 g/dLNormal6.3-8.0[facility] Comment on above:Performed By: #### PREALB #### [facility] [address] [place] [address] Cxhidi [Moles/Vol]137 mmol/IJuitye495-774YlmrsmlfaUniversity Hospitals Geneva Medical Center Comment on above:Performed By: #### PREALB #### [facility] [address] [place], [place] [address] Lsgo nitrogen [Mass/Vol]16 mg/dLNormal7-21[facility] Comment on above:Performed By: #### PREALB #### [facility] [address] [place], [place] [address] Mysywyhrfawd 10-44-4407Awakcfwhky [Mass/Vol]22 mg/hIJwujjr90-61 University Hospitals Geneva Medical CenterComment on above:Performed By: #### PREALB #### [facility] [address] [place], [place] [address] [phone] Clinical Summaryon 90-14-9935Abmbxejqhq Clinical Summary {42-19-10-07-8w-a4-5a-03-14-01-96-g4-09-51-88-e8}CD:[id number] HealthGeneral Surgery Office/Clinic Noteon 83-63-5880Gfciyib Surgery Office/Clinic NoteChief Complaint post operative follow up HPI Staff 13 day post operative follow up post colonoscopy with biopsy from sigmoid and rectosigmoid junctionmass. History of Present Illness 2 weeks s/p colonoscopy for colorectal screening; patient found to have distal sigmoid colitis, bx revealed surface erosion, dense chronic inflammation with prominent lymphoid aggregates, no granulomata; possible IBD; also found to have large villous lesion at rectosigmoid junction, encompassed 3/4of the circumference of the colon; biopsies just revealed villous adenoma, but appeared superficial. patient denies abdominal pain or blood in stools; no h/o IBD. Review of Systems ROS - Provider Constitutional: no fever, no sweats, no weight loss. Eyes: no glasses, no blurred vision, no visual loss. ENMT: no dentures, no hoarseness, no swallowing difficulties, no hearing loss, no ear infection(s),no nose bleeds. Cardiovascular: normal blood pressure, no [...] will likely require surgical resection, will progress tocancer if not already present; possible associated IBD in distal sigmoid; will refer to colorectal surgery for recommendations and treatment, patient prefers [facility]; call sooner if problems/questions. [place] [facility] [place] 2. Left sided colitis without complications (K51.50: Left sided colitis without complications) see # 1 Ordered[place] [facility] [place] Follow-up [...] (11/05/2007), Carpal tunnel syndrome of right wrist, Cataractextraction, Right shoulder. Medications citalopram 20 mg Tab [...] Status SARS-CoV-2 (COVID-19) mRNA BNT-162b2 vax 01/06/2021 RecordedMercy HealthComment on above:Result Comment: Electronically Signed By: ROSA ISELA PALMER, Terrence Cornellbr\Date and Time Signed: 05/17/21 16:31 EDTOutside Colonoscopyon 84-14-6019Yboarnc [id number]#1.00CD:[address] [place], [place] [address]Pathology Noteon 82-72-2780Gcktcbchm Note [id number]#1.00CD:[address] [place], [place] [address]Lab Reportson 15-98-0325Jow Reports [id number]#1.00CD:[address] [place], [place] [address]Provider Letter FTMCon 22-70-9476Znhifjew Letter [facility] [place] [place] Mikel Ruiz, [facility] [facility] [place] [address] Re: EMILY HAYWOOD Date of : 1960 Thank you for your referral of Emily Haywood who was seen on consultation for colonoscopy. A colonoscopy is planned. I have enclosed my consultation notes for your review. I will be happy to follow Emily. Sincerely, Terrence Natarajan MD General SurgeryNoHenry County HospitalConsent for Procedure/Surgeryon 52-00-4463Bieffyb for Procedure/Surgery [id number]#1.00CD:[address] [place], [place] [address]Historical Records Officeon 73-65-1207Nmfhnlitlz Records Office [id number]#1.00CD:[address] [place], [place] [address]Ambulatory Clinical Summaryon 52-26-7635Immvedwmiy Clinical Summary {g9-4w-05-d5-2e-1l-70-zs-5s-sq-t1-a3-0a-6c-d6-d5}CD:[id number] Health System [facility] Educationon 81-98-1164Omlabwh EducationColonoscopy A colonoscopy is an exam to evaluate [...] caregiver. Discomfort is usually minimal. You may begiven a drug to help you sleep (sedative [...] ? Medicines taken, including vitamins, herbs, eyedrops, mrsl-ahv-ewsesuk medicines, and creams. ? Use of steroids [...] medical facility. It is important for you tofollow up on all of your test results. [...] medicines have worn off. ? Only take myor-lwg-xluzptt or prescription medicines for pain, discomfort, or fever as directed by your caregiver. Do not use aspirin or blood thinners if a biopsy was taken. Consult your caregiverfor medicine usage if biopsies were taken. SEEK [...] 01/13/2013 Document Reviewed: 06/03/2009 ExitCare? Patient Information ?2014 [employer]. Physical Medicine and Rehabilitation Exercising to Lose Weight Exercise is structured, repetitive physical activity to improve fitness and health. Getting regularexercise is important for everyone. It is especially important if you are overweight. Being overweight increases your risk of heart disease, stroke, diabetes, high blood pressure, and several types of cancer. Reducing your calorie intake and exercising can help you lose weight. Exercise is usually categorized as moderate or vigorous intensity. To lose weight, most people needto do a certain amount of moderate-intensity or [...] a week of vig (more content not included)...[facility] Hospitalsician Referralon 03-36-5685Cnzaqtzxi Referral [id number]#1.00CD:[address] [place], [place] [address]Patient Correspondenceon 36-70-3644Consnor Correspondence [id number]#1.00CD:[address] [place], [place] [address]Physician Referralon 29-02-3410Gvepbhtxr Referral [id number]#1.00CD:[address] [place], [place] [address]Physician Referralon 19-46-6454Szxiecwcx Referral [id number]#1.00CD:[address] [place] [address] Vital Signs Date TimeVital SignValuePerforming PukzytebkHeiuauii47-46-2757 13:41-0400Body .56 cmTrihealth [facility]05-14-2025 13:41-0400Body mass index (BMI) [Ratio]43 kg/a4MkfiddnxnTrihealth Good Samaritan Hospital05-14-2025 13:41-0400Body .6 kgTrihealth Good Samaritan Hospital05-14-2025 13:41-0400Diastolic blood wjuixnss74 mm[Hg][facility] 03-18-2025 13:41-0400Heart rate88 /minTrihealth Good Samaritan Hospital 03-18-2025 13:41-0400Systolic blood jjoexmgf109 mm[Hg][facility] Encounters Encounter DateEncounter TypeCare ProviderFacilityStart: 04-07-2025 End: 98-70-5675ekcvyqqivmIGWR BIALASKINot AvailableStart: 03-18-2025 End: 68-34-5162dfzfbacmixBsbtvngeqKindred Hospital Lima Work Phone: Start: 03-18-2025 End: 72-08-3925Qjpecld encounter procedureAtrium Health [facility] Work Phone: start: 00-69-4227Woajizztp for general adult medical examination without abnormal findingsDR MIKEL HOY .[facility] HospitalStart: 02-05-2023 End: 01-33-2038xrcyvcfhieXA MIKEL HOY .Facility:G1Vyqfe: 02-05-2023 End: 40-26-8153Zvhoptfpq for general adult medical examination without abnormal findingsDR MIKEL HOY .Facility:N7Wvtae: 10-23-2022 End: 51-79-4811zbaxictlefNY MIKEL HOY .Facility:N6Qbgjm: 07-26-2022 End: 91-61-2190mkhteqmvtcJJ MIKEL HOY .Facility:R9Ygnww: 05-09-2022 End: 87-11-9113hdtxkhlzpfIG MIKEL HOY .Facility:H1 Procedures DateProcedureProcedure DetailPerforming ClinicianStart: 71-35-4538Cwiyqupq screenComment on above:Performed By: #### [id number] ####[address] [id number] Plan of Treatment DateCare ActivityDetailAuthorMR Thoracic spineTri[facility] XR Lumbar spine ViewsTrihealth Good Samaritan Hospital Payers DatePayer CategoryPayerPolicy [id number] 2..[id number] 2..[id number] 2..1.[id number] 2.840.1.6328[id number] 2.16.840.1.358604.3.57[id number] [id number] Social History DateTypeDetailFacilityStart: 18-65-1249Mahaomh smoking status NHISEx-smoker (finding)[facility]: 16-19-9114XlrTxgksb (finding) [facility]: 93-18-1465Jmj Assigned At [facility] Progress note 07-21-2021 Note Date & WkzrLfteWertycof43-10-1824 NoteHNO ID: [id number] Author: Vinay Hall MD Service: ? Author [...] with her endoscopist. Vinay Hall MD [facility] Progress note 06-26-2021 Note Date & LyouUpllEseckszg21-74-1685 NoteHNO ID: [id number] Author: Naa Garcia MD Service: Colorectal Author Type: Resident Type: Progress Notes Filed: 06/26/2021 10:38 PM Note Text: ODETTE DRAIN REMOVAL ? After proper patient identification, ODETTE?drain was removed at the bedside. Drain isolated, suction removed, suture cut. Recovered whole and intact. Dry gauze dressing applied. The patient tolerated the procedure well. ? [facility] 06-26-2021 Note Date & TudqXzcwYudyirnl97-23-1656 NoteHNO ID: [id number] Author: Naa Garcia MD Service: Colorectal Author Type: Resident Type: Progress Notes Filed: 06/26/2021 11:54 AM Note Text: General Surgery Progress Note Service Date: June 26, 2021 Patient Name: Emily Haywood Assessment and Plan: Emily Haywood is a 60 year old female with history of villous adenoma of the rectosigmoid junction s/p laparoscopic hand assisted LAR on 06/24. Neuro/Pain: Stop RN AMBULATORY and start oxycodone Cardio/Resp: Incentive spirometry FEN/GI: Advance to GIS and HLIV. Plan to remove ODETTE prior to discharge Renal: Strict I/Os. Sampson removed overnight POD 1 Heme/DVT PPx: ICDs, Lovenox 40mg daily and plan for homegoing Wound/ID: No abx Dispo: Continue RNF. Possible discharge home today vs. Tomorrow. Naa Garcia MD June 26, 2021 7:39 AM Subjective: No acute events overnight. Pain controlled, denies nausea/vomiting. Started to pass gas and had a bowel movement overnight. Voiding around sampson, so it was removed overnight. Physical Exam: [...] Date 06/25/21 07 - 06/26/21 0659 06/26/21 07 - 06/27/21 0659 Shift 2999-5573 9454-3073 4287-8619 24 Hour Total 5577-8799 3976-7374 3561-6885 24 Hour Total INTAKE PO 100 150 250 PO 100 150 250 Shift Total 100 150 250 OUTPUT Urine 280 933 5749 2150 Void (ml) 800 800 Output ([REMOVED] Indwelling Urinary Catheter 06/24/21 1409 Sampson 16 Fr 06/26/21 0100) 300 122 143 0108 Tubes 90 90 50 230 Drain/Tube Output (Drain/Tube 06/24/21 1713 Jose Manuel Burton Right Lower Quadrant) 90 90 50 230 # of BMs Stool Incontinence 1 x 1 x Number of BMs 1 x 1 x 4 x 6 x Shift Total 759 110 8734 2380 Weight (kg) 110.7 110.7 110.7 110.7 [...] mL INTRAVENOUS q 12 H - HYDROmorphone RN AMBULATORY 0.5 mg/mL in NaCl 0.9% 100 mL [...] Patient Active Hospital Problem List: Colonic mass (06/09/2021)[facility] Progress note 06-25-2021 Note Date & KwpyWlikBvbggssl95-73-3933 NoteHNO ID: [id number] Author: Joseluis Colvin MD Service: Colorectal Author Type: Resident Type: Progress Notes Filed: 06/25/2021 7:43 AM Note Text: General Surgery Progress Note Service Date: June 25, 2021 Patient Name: Emily Haywood Assessment and Plan: Emily Haywood is a 60 year old female with history of villous adenoma of the rectosigmoid junction s/p laparoscopic hand assisted LAR on 06/24. Neuro/Pain: Continue RN AMBULATORY and appreciate APMS input Cardio/Resp: Incentive spirometry FEN/GI: Continue IVF, will start limited clear liquid diet today Renal: Strict I/Os. Continue Sampson (to be removed on POD3 if no [...] 0659 06/25/21 07 - 06/26/21 0659 Shift 3728-1068 9031-0537 1095-2330 24 Hour Total 4669-4904 6539-9475 9775-9279 24 Hour Total INTAKE PO 50 50 PO 50 50 IV 2500 1146 3646 Volume (mL) (lactated ringers iv infusion) 1000 1000 Volume (mL) (lactated ringers iv infusion) 1500 1500 Volume (mL) (lactated ringers iv infusion) 1146 1146 Shift Total 2550 1146 3696 OUTPUT Urine 75 362 249 6952 Void (ml) 0 0 OR Urine Output 75 460 535 Output ( Indwelling Urinary Catheter 06/24/21 1409 Sampson 16 Fr) 150 500 650 Emesis 0 0 Emesis (ml) 0 0 Tubes 140 70 210 Drain/Tube Output (Drain/Tube 06/24/21 1713 Jose Manuel Burton Right Lower Quadrant) 140 70 210 # of BMs Number of BMs 0 x 0 x Blood 50 50 Estimated Blood loss 50 50 Shift Total 75 004 554 7945 Weight (kg) 110.7 110.7 110.7 110.7 110.7 [...] mL INTRAVENOUS q 12 H - HYDROmorphone RN AMBULATORY 0.5 mg/mL in NaCl 0.9% 100 mL [...] Patient Active Hospital Problem List: Colonic mass (06/09/2021)[facility] Plan of care note 06-25-2021 Note Date & MgqkKziwKqfpykvp87-55-7597 NoteHNO ID: [id number] Author: John Ma MD Service: Colorectal Author [...] leak test. EBL:50 mLs Interval: Arrived to [facility]. No nausea or vomiting. NPO. Pain Well-controlled. NO CP or SOB. Pt sleeping well and comfortable. Pain Meds: Tylenol q6h, Hydromorphone RN AMBULATORY, ketorolac q6h IVF: LR 75 mL/hr PHYSICAL [...] MD Resident General Surgery PGY-1 Personal Pager: [phone] For calls on nights and weekends, please page the gen surg pager: [phone] 11:35 PM, 06/24/2021[facility] Clinical Note 06-24-2021 Note Date & TzscXswiZhvinwov47-22-8491 NoteHNO ID: [id number] Author: Regi De Leon APRN.POINTER MACHINE OPERATOR Service: Anesthesiology Author Type: Nurse Assistant Auditor Type: Anesthesia Procedure Notes Filed: 06/24/2021 2:11 [...] Right Location: Hand SIGNATURE: Regi De Leon APRN.POINTER MACHINE OPERATOR PATIENT NAME: Emily Haywood DATE: June 24, 2021 TIME: 2:11 PM [id number] 06-24-2021 Note Date & TuelHflsJbjfujvb48-51-2848 NoteHNO ID: [id number] Author: Regi De Leon APRN.POINTER MACHINE OPERATOR Service: Anesthesiology Author Type: Nurse Assistant Auditor Type: Anesthesia Procedure Notes Filed: 06/24/2021 2:11 PM Note Text: ANESTHESIOLOGY PROCEDURE NOTE Airway General Information Procedure Start Time/Medication Administration: 06/24/2021 1:36 PM Patient location during procedure: OR Staffing Anesthesiologist: Fidel Grant DO POINTER MACHINE OPERATOR: Regi De Leon APRN.POINTER MACHINE OPERATOR Performed by: NISHI Indications and Patient Condition [...] June 24, 2021 TIME: 2:10 PM [facility]: [id number] Progress note 06-02-2021 Note Date & DvedHmxmLdiixwpa65-35-5597 NoteHNO ID: [id number] Author: Vinay Hall MD Service: ? Author Type: Physician Type: Progress Notes Filed: 06/02/2021 12:44 PM Note Text: COLORECTAL SURGERY June 02, 2021 Emily Haywood 60 year old This consult was requested by Dr. Terrence Natarajan / Jenna and my final recommendations will be communicated to the requesting health care provider by way of the shared medical record for internal providers or letter via the [employer] for external providers. Chief Complaint: colon mass History of Present Illness: Emily Haywood is a 60 year old female presents with colon mass Colonoscopy with Dr David Natarajan - 05/04/21-colorectal screening --moderate descending and sigmoid [...] Reviewed/ordered: Review of prior notes from Dr. Natarajan - Review of Pathology - Review of Labs: CBC, BMP - Review of Procedures / Tests: Colonoscopy - Additional testing or imaging to be ordered: Flexible sigmoidoscopy Risk of morbidity, mortality and/or complications of treatment plan: high Vinay Hall MD [facility]University [facility] Clinical Note 03-23-2021 Note Date & IkrnXfbwQirlvjve23-60-5892 NoteChief Complaint Consultation for Colonoscopy HPI Staff 60 year old female referred by Dr Ruiz on consultation of Colonoscopy. Previous Colonoscopy completed at [facility] [address] Hall. Denies [...] swallowing difficulties, no hearing loss, no ear infection(s),no nose bleeds. Cardiovascular: normal blood pressure, no [...] Status SARS-CoV-2 (COVID-19) mRNA BNT-162b2 vax 01/06/2021 RecordedProtestant HospitalComment on above:Result Comment: Electronically Signed By: ROSA ISELA PALMER, Terrence Koenig\Date and Time Signed: 03/23/21 15:53 EDT Evaluation note Note Date & TypeNoteFacilityEvaluation noteNo assessment information available [facility] Work Phone: Summary Purpose Family History No Family History Records Found Relationship Condition Age at Onset Recorded Date/T kathryn father Heart disease Unknown Malignant neoplasmUnknown Advance Directives No Advanced Directives Records Found Advance Directive Response Recorded Date/ Time Advance Directives No March 05, 2025 3:54pm Chief Complaint and Reason for Visit Chief Complaint Admit Date DDD -LUMBAR -BACK PAIN March 18, 2025 1: 19pm Additional Source Comments INFORMATION SOURCE (unrecogn ized section and content) DATE CREATED AUTHOR 06/14/2021 [facility] DATE CREATED AUTHOR AUTHOR'S ORGANIZ ATION 06/14/2021 [facility] DATE CREATED AUTHOR AUTHOR'S ORGANIZ ATION 06/18/2021 [facility] DATE CREATED AUTHOR AUTHOR'S ORGANIZ ATION 06/29/2021 [facility] DATE CREATED AUTHOR AUTHOR'S ORGANIZ ATION 06/30/2021 [facility] DATE CREATED AUTHOR AUTHOR'S ORGANIZ ATION 12/08/2021 [facility] DATE CREATED AUTHOR AUTHOR'S ORGANIZ ATION 02/10/2023 [facility] DATE CREATED AUTHOR AUTHOR'S ORGANIZ ATION 04/12/2025 [facility] EPIC Care Teams (unrecognized sec tion and content) Team Status: Active Member Role Status Dates Mikel Ruiz MD Primary Care Provider Active Team Status: Inactive Member Role Status Dates Linda Bhagat DO Attending Provider Active S tart: March 18, 2025 End: March 18, 2025DoYue Tay[facility] Care ProviderActiveStart: March 18, 2025 End: March 18, 2025 Goals (unrecognized section and content) Goals may be documented in a n alternate section FOR RECORDS PERTAINING TO PATIENTS WHO ARE [...] BE BASED ON THE PRIMARY CLINICAL RECORDS. [facility]. provides no warranty or guarantee of the accuracy or completeness of information in this document.
--- OUTSIDE RECORDS SUMMARY | 2025-10-31 10:25 | XMS_ITS | Clinical Summary ---
Author Organization [facility] tem Address [id number] [place] [address] Care Team Providers Care Box Maker Wood Name Role Phone Camron Ruiz MD Primary Care Provider [phone] Allergies No known active allergies Medications MedicationSigDispense QuantityRefillsLast FilledStart DateEnd DateStatus citalopram (CeleXA) 20 mg tablet Take 20 mg by mouth in the morning.05/27/2021ctive fenofibrate (TRICOR) 145 mg tablet Take 145 mg by mouth in the morning.Active diclofenac (VOLTAREN) 75 mg EC tablet Take 75 mg by mouth in the morning and 75 mg before bedtime.Active liothyronine (CYTOMEL) 5 MCG tablet Take 10 mcg by mouth in the morning.05/23/2021ctive Social History Tobacco UseTypesPacks/DayYears UsedDateSmoking Tobacco: FormerSmokeless Tobacco: NeverAlcohol UseStandard Drinks/WeekCommentsDefer0 (1 standard drink = 0.6 oz pure alcohol)ChildcareAnswerDate DppujraaGtxsuajexAuuqnsq67/12/2019Employment AnswerDate WwxebzpqYigsxcikgqAjaztmz60/12/2019CommentsNoSex and Gender InformationValueDate RecordedSex Assigned at BirthNot on fileLegal SexFemale 06/10/2015 11:50 AM EDTGender IdentityNot on fileSexual OrientationNot on file Plan of Treatment Health MaintenanceDue DateLast DoneCommentsDepression Yrnohqxos21/13/1972Tobacco Iamongbnt31/13/1972Adult BMI Fgzgkioqt04/13/1978DTaP,Tdap and Td Vaccines (1 - Tdap)1979Zoster (Shingles) Vaccine (1 of 2)2010Influenza Vaccine 07/06/2025Fall Risk Xfkjhfyzr09/13/2025RSV ( or age 60+ yrs) (1 - 1-dose 75+ series)2035 [employer] Not on file Insurance Care Teams Team MemberRelationshipSpecialtyStart DateEnd Camron Ruiz MD PCP - Generalmily Medicine04/11/22
--- OUTSIDE RECORDS SUMMARY | 2025-10-31 10:25 | XMS_ITS | Patient Health Record ---
Author Organization [facility] Address [address] [place] [address] Care Team Providers Care Coppersmith Apprentice Name Role Phone Frandy Pelayo Primary Care Provider Allergies No Known Allergies Results Component Value Reference Range Notes MR lumbar spine wo con Reviewed date:02/21/2025 11:35:16 AM Interpretation: Performing Lab: Notes/Report: Source Facility: [place] [address] Magnetic Resonance Report Signed Patient: EMILY LAWTON MR#: [id number] : 1960 Acct:[id number] Age/Sex: 64 / F ADM Date: 02/19/25 Loc: MRI Attending Dr: Mikel Pelayo M.D. Ordering Physician: Mikel Pelayo M.D. Date of Service: 02/19/25 Procedure(s): MR lumbar spine wo con Accession Number(s): [id number] cc: Mikel Pelayo M.D. [place] [id number] Patient Name: EMILY LAWTON MRN: [id number] date: 1960 Sex: F Assigned Patient Location: MRI Current Patient Location: MRI Accession/Order Number: [id number] Exam Date: 02/19/2025 14:11 Report Date: 02/19/2025 14:17 At the request of: MIKEL PELAYO MD Procedure: MR lumbar spine wo con MRI Lumbar Spine withoutcontrast TECHNIQUE: Multiplanar T1 and T2-weighted imaging of lumbar spine obtained without contrast. HISTORY: Chronic back pain COMPARISON: Plain film 02/04/2025 The last fully segmented vertebral pair is operationally defined as L5/S1. POST SURGERY CHANGES: None BONE MARROW INFILTRATION: None BONE MARROW EDEMA: None BONY ALIGNMENT: Mild straightening with scoliosis SPINAL CANAL: Multilevel LUMBAR FRACTURE: None BONY LESIONS: None KIDNEYS: No hydronephrosis is identified. AORTA: No aortic aneurysm is seen. CONUS MEDULLARIS : The distal spinal cord is in adequate position without abnormality. Additional findings CONJOINED NERVE ROOT: None Lower thoracic level: Mild spondylosis. Mild diffuse disc bulges. L1-2 :Mild disc space narrowing. Diffuse disc bulge. Mild to moderate central canal stenosis. Posterior element hypertrophy. Mild bilateral neural foraminal narrowing L2-3: Marked disc space narrowing and endplate spurring. Diffuse disc bulge and left paracentral disc protrusion moderate to severe central canal stenosis. Posterior element hypertrophy. Moderate bilateral neural foraminal narrowing L3-4: Marked disc space narrowing. Endplate changes. Endplate spurring. Diffuse disc bulge. Severe central canal stenosis. Posterior element hypertrophy. Moderate to severe right and moderate left neural foraminal narrowing L4-5: Moderate disc space narrowing. Diffuse disc bulge. Moderate to severe central canal stenosis. Posterior element hypertrophy. Marked bilateral neural foraminal narrowing. L5-S1: Mild disc space narrowing. Diffuse disc bulge. Mild central canal stenosis. Posterior element hypertrophy. Mild bilateral neural foraminal narrowing MR/MR lumbar spine wo con IMPRESSION: Multilevel discovertebral degenerative changes. Moderate to severe central canal stenoses as above. Neural foraminal narrowing as above. Pre-MRI plain film assessment: None Impression dictated by: Shade Srinivasan M.D.02/19/2025 2:17 PM Dictation Location: [place] [address] Electronically authenticated by: [id number] Y Date: 02/19/2025 14:17 Dictated By: Shade Srinivasan D.O. Signed By: 02/19/25 1420 DD/ 1417 TD/TT: [employer] Consultant: SARITA de paz RT min 2V Reviewed date:02/04/2025 07:29:21 PM Interpretation: Performing Lab: Notes/Report: Source Facility: [place] [address] XRay Report Signed Patient: EMILY LAWTON MR#: [id number] : 1960 Acct:[id number] Age/Sex: 64 / F ADM Date: 02/04/25 Loc: RAD Attending Dr: Mikel Pelayo M.D. Ordering Physician: Mikel Pelayo M.D. Date of Service: 02/04/25 Procedure(s): XR hip RT min 2V Accession Number(s): [id number] cc: Mikel Pelayo M.D. [place] [address] Patient Name: EMILY LAWTON MRN: [id number] date: 1960 Sex: F Assigned Patient Location: [facility] Current Patient Location: [facility] Accession/Order Number: [id number] Exam Date: 02/04/2025 13:20 Report Date: 02/04/2025 13:22 At the request of: MIKEL PELAYO MD Procedure: XR hip RT min 2V 2 views right plain film COMPARISON: 10/21/2020 HISTORY: Low back pain ACUTE FINDINGS: None DEGENERATIVE CHANGE: Unremarkable SOFT TISSUE FINDINGS: Unremarkable JOINT EFFUSION: None POSTOP CHANGES: None BONY MINERALIZATION: Adequate XR/XR hip RT min 2V IMPRESSION: Stable hip without significant degeneration or acute bony findings. Impression dictated by: Shade Srinivasan M.D.02/04/2025 1:22 PM Dictation Location: [place] [address] Electronically authenticated by: [id number] Y Date: 02/04/2025 13:22 Dictated By: Shade Srinivasan D.O. Signed By: 02/04/25 1324 DD/ 132 TD/TT: [employer] Consultant: XR lumbar spine 2-3V Reviewed date:02/04/2025 07:29:21 PM Interpretation: Performing Lab: Notes/Report: Source Facility: [facility] [address] XRay Report Signed Patient: EMILY LAWTON MR#: [id number] : 1960 Acct:[id number] Age/Sex: 64 / F ADM Date: 02/04/25 Loc: RAD Attending Dr: Mikel Pelayo M.D. Ordering Physician: Mikel Pelayo M.D. Date of Service: 02/04/25 Procedure(s): XR lumbar spine 2-3V Accession Number(s): [id number] cc: Mikel Pelayo M.D. [place] [address] Patient Name: EMILY LAWTON MRN: [id number] date: 1960 Sex: F Assigned Patient Location: [facility] Current Patient Location: [facility] Accession/Order Number: [id number] Exam Date: 02/04/2025 13:40 Report Date: 02/04/2025 13:45 At the request of: MIKEL PELAYO MD Procedure: XR lumbar spine 2-3V 2 view Lumbar Spine HISTORY: Low back and hip pain. COMPARISON: None POSTSURGICAL CHANGES: None BONY ALIGNMENT: Mild scoliosis. Mild straightening HYPERMOBILITY:No bending imaging. LISTHESIS:Mild degenerative listhesis FRACTURE: None DEGENERATIVE CHANGES: Extensive multilevel lumbar spondylosis. Extensive multilevel facet degeneration SOFT TISSUES: Unremarkable BONY MINERALIZATION:Adequate XR/XR lumbar spine 2-3V IMPRESSION: Extensive degenerative changes. Scoliosis. No acute fracture. Impression dictated by: Shade Srinivasan M.D.02/04/2025 1:45 PM Dictation Location: [place] [address] Electronically authenticated by: [id number] Y Date: 02/04/2025 13:45 Dictated By: Shade Srinivasan D.O. Signed By: 02/04/251346 DD/ 44 TD/TT: [employer] Consultant: Reason For Referral Diagnosis 1 Other intervertebral disc degeneration, lumbar region (M51.36) Referral Organization [facility] Referring Provider First Name Frandy Referring Provider Last Name Joseph [facility] [place] Referred Provider Antonino Dangelo Referred Provider Specialty Neurosurgery Referral Priority Routine Medications Medication SIG (Take, Route, Frequency, Duration) [...] did you start smoking?11/05/1974When did you stop smoking?11/05/1991Alcohol Screen (Audit-C) Question Answer Notes Did you have a drink containing alcohol in the p ast year? Yes How often did you have 6 or more drinks on one occasion in the past year?Never (0 point)How many drinks did you have on a typical day when you were drinking in the past year?1 or 2 drinks (0 point)How often did you have a drink containing alcohol in the past year?Less than monthly (1 point)Qrpivn1Zdpaakpmgtztks NegativeAUDIT-C (Standard) Question Answer Notes Did you have a drink containing alcohol in the p ast year? Yes How often did you have six or more drinks on one occasion in the past year?Never (0 point)How many drinks did you have on a typical day when you were drinking in the past year?3 or 4 drinks (1 point)How often did you have a drink containing alcohol in the past year?Monthly or less (1 point)Mlrvfe1GwqhatjitokjdvItygxrug Problems Problem Type SNOMED Code ICD Code Onset Dates Problem Status W/U Status Risk Notes Problem Osteoarthritis of knee (27806444 7) Bilateral primary osteoarthritis of knee (M17.0) ActiveconfirmedProblemPrimary osteoarthritis (931713347)Unilateral primary osteoarthritis, right knee (M17.11)ActiveconfirmedProblemDegeneration of lumbar intervertebral disc (57590009)Other intervertebral disc degeneration, lumbar region (M51.36)ActiveconfirmedProblemGastroesophageal reflux disease (733614083) GERD (gastroesophageal reflux disease) (K21.9)ActiveconfirmedProblem Hypothyroidism (47663098)Hypothyroidism (E03.9)ActiveconfirmedProblemWell adult (062151267)Well adult (Z00.00)ActiveconfirmedProblemImpacted cerumen (33212632) Cerumen debris on tympanic membrane (H61.20)ActiveconfirmedProblemLumbosacral spondylosis without myelopathy (70637648)Spondylosis of lumbar spine (M47.816) ActiveconfirmedProblemLow back pain (finding) (031792084)Low back pain at multiple sites (M54.50)Activeconfirmed Vital Signs Blood pressure diastolic 80 mm Hg 10/30/2025 Yyriei68 in10/30/2025lood pressure rdvxrecu850 mm Hg10/30/20252133Rqzyqg468.6 lbs 10/30/2025BMI44.04 kg/m210/30/2025 Procedures Procedure Date Ordered Date Performed Result Body Sit e Cerumen Removal - performed 10/30/2025 10/30/2025 N/A Encounters Encounter Location Date Provider Diagnosis [facility] [address] [place] [address] 02/03/2025 Frandy Hoy Low back pain at mul tiple sites M54.50 [facility] [address] [place] [address] 10/30/2025 Frandy Hoy Hypothyroidism E03.9 ; Low back pain at multiple sites M54.50 ; Bilateral primary osteoarthritis of knee M17.0 ; GERD (gastroesophageal reflux disease) K21.9 and Cerumen impaction H61.20 [facility] [address] [place] [address] 02/04/2025 Frandy Hoy Low back pain at mul tiple sites M54.50 [facility] [address] [place] [address] 02/02/2025 Frandy Hoy [facility] [place] [address] 02/02[facility]20[facility] [facility] [address]/12/2024Doug HoyLow back pain at multiple sites M54.50 and Right hip pain M25.551B[place] [address] [place] [address]/12/2024Doug HoyLow back pain at multiple sites M54.50Bu[place] [address] [facility] [place] [address]/ Frandy HoyOther intervertebral disc degeneration, lumbar region M51.36[place] [address] [place] [address]/ Frandy HoyWellness examination Z00.00 ; Hypothyroidism E03.9 and Screening for colon cancer Z12.11BKimberly [place] [address] [place] [address]/Doug Hoy Assessments Encounter Date Diagnosis (ICD Code) Assessment Notes Treatment Notes Treatment Clinical Notes Section Notes 02/03/2025 Low back pain at multiple sites (ICD-10 - M54.50) T/N/Triam - may need to repeat tomo02/04/2025Low back pain at multiple sites (ICD-10 - M54.50)10/30/2025Hypothyroidism (ICD-10 - E03.9)10/30/2025Low back pain at multiple sites (ICD-10 - M54.50)02/04/2025Low back pain at multiple sites (ICD-10 - M54.50)02/04/2025Right hip pain (ICD-10 - M25.551)02/04/2025Low back pain at multiple sites (ICD-10 - M54.50)02/21/2025Other intervertebral disc degeneration, lumbar region (ICD-10 - M51.36)07/30/2025Wellness examination (ICD-10 - Z00.00)07/30/2025Hypothyroidism (ICD-10 - E03.9)10/30/2025ilateral primary osteoarthritis of knee (ICD-10 - M17.0)10/30/2025GERD (gastroesophageal reflux disease) (ICD-10 - K21.9)07/30/2025Screening for colon cancer (ICD-10 - Z12.11)10/30/2025erumen impaction (ICD-10 - H61.20) Plan Of Treatment Pending Test Test Name Order Date CMP (COMPLETE METABOLIC PANEL) 4 HEMOGLOBIN A1C (GLYCO) 10/30/2025 IRON, TOTAL 10/30/2025 LIPID PANEL (CHOL/TRIG/HDL/LDL) 10/30/20 25 VITAMIN D, 25 LEVEL (TOTAL) 10/30/2025 MRI Lumbar Spine w/o contrast 02/04/2025 FECAL OCCULT BLOOD 07/30/2025 Insulin Level 10/30/2025 CMP - Comprehensive Metabolic Panel 07/07 CBC W/AUTO DIFF 03/24/2024 STOOL OCCULT BLOOD 03/24/2024 STOOL OCCULT BLOOD 10/30/2025 CBC AUTO DIFF 07/30/2025 GLYCOHEMOGLOBIN A1C 07/30/2025 GLYCOHEMOGLOBIN A1C 03/24/2024 LIPID PROFILE 03/24/2024 LIPID PROFILE 07/30/2025 THYROID PANEL (T4/TSH/FREE T3) 5 THYROID PANEL (T4/TSH/FREE T3) 4 THYROID PANEL (T4/TSH/FREE T3) 4 THYROID PANEL (T4/TSH/FREE T3) 5 MM screening mammo BI 09/11/2024 MM diagnostic mammo BI 10/30/2025 CMP (COMP MET MEDINA) w/eGFR CKD-EPI 2024 CBC WITH DIFF 10/30/2025 Insurance Providers Payer Name Payer Address Payer Phone Subscriber Number Group Number Insured Name Patient Relationship to Insured Coverage Start Date Coverage End Date [employer] [address] [place] [address] [phone] - patient is the insured Medications Administered Medication Instructions Date of Administration Dosage Notes Ketorolac Tromethamine mgKetorolac Hkxtviklizat20/02/202560 mgOrphenadrine Citrate mgOrphenadrine Ugzhcdv89 mgTriamcinolone 40 mg/ml mgTriamcinolone 40 mg/ml mg Medical (General) History Medical History History ICD Code DDD (degenerative disc disease), lumbar M51.36 Scoliosis M41.9 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
--- OUTSIDE RECORDS SUMMARY | 2025-10-31 10:25 | XMS_ITS | Clinical Summary ---
Author Organization [facility] Address [address] [place] [address] Care Team Providers Care Customer Experience Associate Name Role Phone Camron Ruiz MD Primary Care Provider [phone] Allergies No known active allergies Medications MedicationSigDispense QuantityRefillsLast FilledStart DateEnd DateStatus diclofenac (Voltaren) 75 MG EC tablet Take 75 mg by mouth in the morning and 75 mg before bedtime.Active fenofibrate (Tricor) 145 MG tablet Take 145 mg by mouth in the morning.Active levothyroxine (Synthroid, Levoxyl) 100 MCG tablet Levothyroxine SodiumActive citalopram (CeleXA) 20 MG tablet Take 20 mg by mouth in the morning.03/31/2023ctive liothyronine (Cytomel) 5 MCG tablet take 2 tablets by mouth once daily ON AN EMPTY OPZZHBN3207/02/2023ctive Active Problems ProblemNoted DateDiagnosed DateLeft carpal tunnel wrgoubiu88/15/2023arpal tunnel syndrome of right wrist04/19/2023rimary hslgrdzkcammpd15/15/2023 Resolved Problems ProblemNoted DateDiagnosed DateResolved DateMorbidly obese Overview (04/19/2023): Last Assessment & Plan: Assessment: Body mass index is 41.88 kg/m??. Bilateral primary osteoarthritis of knee/rthritis of left kneerthritis of right knee Family History Medical HistoryRelationNameCommentsArthritisFatherHeart diseaseFatherArthritis MotherMental illnessMotherRelationNameStatusCommentsFatherAliveMotherAlive Social History Tobacco UseTypesPacks/DayYears UsedDateSmoking Tobacco: NeverSmokeless Tobacco: NeverAlcohol UseStandard Drinks/WeekCommentsYes0 (1 standard drink = 0.6 oz pure alcohol)sociallyCommentsUnknownSex and Gender InformationValueDate RecordedSex Assigned at BirthNot on fileLegal BhbJlluaw29/15/2023 9:45 PM EDT Gender IdentityNot on fileSexual OrientationNot on file Last Filed Vital Signs Vital SignReadingTime TakenCommentsBlood Cvfmylcy358/7810 12:00 PM EDT Pulse--Lageuincjtl66.3 ??C (97.3 ??F)07/31/2023 8:06 AM EDTRespiratory Rate-- Oxygen Saturation--Inhaled Oxygen Concentration--Joredf274 kg (261 lb)07/31/2023 8:06 AM EDYExhirq961.5 cm (5' 2 )07/31/2023 8:06 AM EDTBody Mass Index47.74 07/31/2023 8:06 AM EDT Plan of Treatment Not on file Insurance Care Teams Team MemberRelationshipSpecialtyStart DateEnd Camron Ruiz MD PCP - GeneralFamily Medicine04/04/23
--- OUTSIDE RECORDS SUMMARY | 2025-10-31 10:25 | XMS_ITS | Clinical Summary ---
Author Organization [facility] Address [address] [place] [id number] Care Team Providers Care Physical Therapy Aides Teacher Name Role Phone Camron Ruiz MD Primary Care Provider [phone] Allergies No known active allergies Medications MedicationSigDispense QuantityRefillsLast FilledStart DateEnd DateStatus citalopram (CELEXA) 20 mg tablet Take 20 mg by mouth once daily.05/27/2021ctive fluocinonide (LIDEX) 0.05 % cream Apply 1 application to affected area as needed. 05/10/2021ctive liothyronine (CYTOMEL) 5 mcg tablet Take 10 mcg by mouth once daily.05/23/2021ctive diclofenac, EC, (VOLTAREN) 75 mg EC tablet Take 75 mg by mouth twice daily.Active fenofibrate nanocrystallized (TRICOR) 145 mg tablet Take 145 mg by mouth once daily.Active multivit with minerals/lutein (MULTIVITAMIN 50 PLUS ORAL) Take 1 tablet by mouth once daily.Active neomycin 500 mg tablet Indications:Polyp of colon, unspecified part of colon, unspecified typeTake 2 tablets by mouth as directed. Take 2 tablets at 6 pm, again at 7 pm and at 11 pm the eveningprior to surgery 6 tablet 06/03/2021ctive metroNIDAZOLE (FLAGYL) 500 mg tablet Indications:Polyp of colon, unspecified part of colon, unspecified typeTake 1 tablet by mouth as directed. Take 1 tablet at 6 pm, another at 7 pm and again at 11 pm, the evening prior to surgery 3 tablet 06/03/2021ctive oxyCODONE IR (ROXICODONE) 5 mg immediate release tablet Indications:Postoperative painTake 1 tablet by mouth every 6 hours as needed for pain. 25 tablet 06/26/2021ctive Active Problems ProblemNoted DateDiagnosed DateColonic mass06/09/2021Mixed hyperlipidemia 06/09/2021 Assessment & Plan (06/17/2021 9:10 AM EDT): Assessment: Compliant with Rx, following with PCP. Jdzsnwdutt05/05/2021 Assessment & Plan (06/17/2021 9:11 AM EDT): Assessment: Currently stable on Rx per patient. Diverticula of colon06/09/2021IBS (irritable bowel syndrome) Assessment & Plan (06/17/2021 9:09 AM EDT): Assessment: Denies constipation or diarrhea; has some urgency with bowel movements. Acquired hypothyroidism Assessment & Plan (06/17/2021 9:10 AM EDT): Assessment: R sided thyroid enlargement, patient states has been like this for years. Biopsied in the past. Recently started on thyroid Rx. Morbidly obese Assessment & Plan (06/17/2021 9:11 AM EDT): Assessment: Body mass index is 41.88 kg/m??. Immunizations ImmunizationAdministration DatesNext DueCOVID-19 original vaccine, age 12+ yr, monovalent ([email or web address] - PURPLE TOP)02/19/2021,01/19/2021 Family History Medical HistoryRelationCommentsHeartFatherVision lossFatherDementiaMotherGBS MotherRelationStatusCommentsFatherAliveMotherAlive Social History Tobacco UseTypesPacks/DayYears UsedDateSmoking Tobacco: FormerCigarettes0.815 1974 - mokeless Tobacco: NeverAlcohol UseStandard Drinks/WeekCommentsNot Currently0 (1 standard drink = 0.6 oz pure alcohol)Area Deprivation IndexAnswer Date RecordedNational Score (1-100), lower number is lower riskNot on file 06/02/2021tate Score (1-10), lower number is lower riskNot on file06/02/2021 Data from: https://www.neighborhoodatlas.medicine.[facility]/. Last address used for calculationNot on file06/02/2021CommentsNoSex and Gender Information ValueDate RecordedSex Assigned at BirthNot on fileLegal IfoKrejzp90/14/2021 10:16 AM EDTGender IdentityNot on fileSexual OrientationNot on file Last Filed Vital Signs Vital SignReadingTime TakenCommentsBlood Evxkaukp38/7009 12:14 PM EDT Erthu501907/21/2021 12:14 PM IPQGskwucescpd34.3 ??C (99.1 ??F)06/26/2021 11:50 AM EDTRespiratory Kwwl485906/26/2021 11:50 AM EDTOxygen Yynzevtcdz33%06/26/2021 11:50 AM EDTInhaled Oxygen Concentration--Aqlgtl650.7 kg (222 lb)07/21/2021 12:14 PM DWENriqrx791.6 cm (5' 4 )06/24/2021 8:26 PM EDTBody Mass Index38.1108 8:26 PM EDT Plan of Treatment Health MaintenanceDue DateLast DoneCommentsAnxiety Jzfyrjivu14/13/1978Depression Bmqaepgjz07/13/1978HIV [place]92/13/1978Hepatitis C Wmjzffwhu45/13/1978 Mammogram Lmgfcmvmc67/13/2000CT Ionrcabpxvmp54/13/2005Cologuard (FIT-DNA) 07/18/20058326Yuuiuxtvbih89/13/2005Fecal Occult Blood2005Lipid Screening 2005Pneumococcal Vaccine: 50+ (1 of 1 - PCV)2010Shingrix Vaccine (1 of 2)2010Diabetes Jbdjhfueu99/22/644191/, 06/25/2021, 06/02/2021 Covid-19 Vaccine (3 - 2024- season)504, 01/19/2021Influenza Vaccine (#1)2025dvance Directive Stggavlxuk83/13/2025one Density Dozaaorou12/13/2025DTaP,Tdap,Td Vaccine (2 - Td or Tdap) Colorectal Cancer Frtinvori80/05/7269Pufaeilkfyqig36SV Vaccine (1 - 1-dose 75+ series)2035 Procedures Procedure NamePriorityDate/TimeAssociated DiagnosisCommentsBASIC METABOLIC PANEL ASAP06/26/2021 6:31 AM EDT SIGMOIDOSCOPY FLEX XBCRSsvmvbl82/05/2021 11:42 AM EDT from Last 3 Months or Most Recently Relevant to Health Maintenance Results * (ABNORMAL) BASIC METABOLIC PNL (06/26/2021 6:31 AM EDT)ComponentValueRef Range Test MethodAnalysis TimePerformed AtPathologist BhnmuprfjNdogskl9271 - 100 mg/dL06/26/2021 8:28 AM [facility] HospitalBUN138 - 25 mg/dL06/26/2021 8:28 AM [facility] HospitalCreatinine0.54(L)0.70 - 1.40 mg/dL06/26/2021 8:28 AM [facility] - 148 mmol/L06/26/2021 8:28 AM [facility] HospitalPotassium4.13.5 - 5.0 mmol/L06/26/2021 8:28 AM [facility] Sajaztvt34254 - 110 mmol/L06/26/2021 8:28 AM [facility] HospitalCO22523 - 32 mmol/L06/26/2021 8:28 AM [facility] HospitalAnion Gap99 - 18 mmol/L06/26/2021 8:28 AM [facility] HospitalCalcium8.78.5 - 10.5 mg/dL06/26/2021 8:28 AM [facility]GFR->60>60006/26/2021 8:28 AM [facility] HospitaleGFR-All Other Races>60>60 .06/26/2021 8:28 AM [facility] Comment: eGFR (Estimated GFR) Units of measure: [...] eGFR may not accurately reflect actual GFR. Specimen (Source)Anatomical Location / LateralityCollection Method / Volume Collection TimeReceived TimeBloodBLOOD SPECIMEN / Pfurtyc6906/26/2021 6:31 AM EDT 06/26/2021 6:32 AM EDT Narrative Authorizing ProviderResult TypeResult StatusDavibora Mohr MDLABORATORYFinal Result Performing OrganizationAddressCity/State/[place] [address], [place] [address] * SIGMOIDOSCOPY FLEX DIAG (06/09/2021 11:42 AM EDT)ComponentValueRef RangeTest MethodAnalysis TimePerformed AtPathologist SignatureTranscriptBrooks Memorial Hospital Gastrointestinal [facility] Patient Name: Kami Rashid Procedure Date: 06/09/2021 11:42 AM Date of : 1960 Admit Type: Outpatient Age: 60 Room: [facility] A Gender: Female Note Status: Finalized Attending MD: Earl Mohr MD Procedure: ? Flexible Sigmoidoscopy Indications: ? Preoperative assessment Providers: ? Earl Mohr MD Patient Profile: ? This is a 60 year old female. Refer to note in ? patient chart for documentation of history and ? physical. Last Colonoscopy: within the past month. Referring Physician: Medicines: ? Fentanyl 100 micrograms IV, Midazolam 4 mg IV Complications: ? No immediate complications. Requesting Provider: Procedure: ? Pre-Anesthesia Assessment: ? - Prior to the procedure, a History and Physical was ? performed, and patient medications and allergies were ? reviewed. The patient is competent. The risks and ? benefits of the procedure and the sedation options ? and risks were discussed with the patient. All ? questions were answered and informed consent was ? obtained. Patient identification and proposed ? procedure were verified by the physician and the ? nurse in the pre-procedure area in the endoscopy ? suite. Mental Status Examination: alert and oriented. ? Airway Examination: normal oropharyngeal airway and ? neck mobility. ASA Grade Assessment: III - A patient ? with severe systemic disease. After reviewing the ? risks and benefits, the patient was deemed in ? satisfactory condition to undergo the procedure. The ? anesthesia plan was to use moderate sedation / ? analgesia (conscious sedation). Immediately prior to ? administration of medications, the patient was ? re-assessed for adequacy to receive sedatives. The ? heart rate, respiratory rate, oxygen saturations, ? blood pressure, adequacy of pulmonary ventilation, ? and response to care were monitored throughout the ? procedure. The physical status of the patient was ? re-assessed after the procedure. ? After obtaining informed consent, the scope was ? passed under direct vision. The Colonoscope was ? introduced through the anus and advanced to the ? sigmoid colon. The flexible sigmoidoscopy was ? accomplished without difficulty. The patient ? tolerated the procedure well. The quality of the ? bowel preparation was good. Moderate Sedation: ? The administration of moderate sedation was initiated at 12:31 PM. ? Moderate (conscious) sedation was administered by the endoscopy nurse ? and supervised by the endoscopist. The patient's oxygen saturation, ? heart rate, blood pressure and response to care were monitored. Total Procedure Duration: 0 hours 8 minutes 21 seconds Findings: ? The perianal and digital rectal examinations were normal. ? A 40 mm polyp was found in the recto-sigmoid colon. The polyp was ? sessile. Biopsies were taken with a cold forceps for histology. Area ? was tattooed with an injection of Spot (carbon black). ? The exam was otherwise without abnormality. Impression: ?- One 40 mm polyp at the recto-sigmoid colon. ? Biopsied. Tattooed. ? - The examination was otherwise normal. Recommendation: ?- Discharge patient to home. ? - Resume previous diet. ? - Await pathology results. Procedure Code(s): ?? --- Professional --- ? 74511, Sigmoidoscopy, flexible; with biopsy, single ? or multiple ? 35092, Sigmoidoscopy, flexible; with directed ? submucosal injection(s), any substance CPT copyright 2019 [employer]. All rights reserved. The codes documented in this report are preliminary and upon lathe turner review may be revised to meet current compliance requirements. Attending Participation: ? I personally performed the entire procedure. Scope In: 12:35:11 PM Scope Out: 12:43:32 PM MD Earl Holden MD 06/09/2021 12:48:04 PM This report has been signed electronically by Earl Mohr MD Number of Addenda: 0 Note Initiated On: 06/09/2021 11:42 AM Estimated Blood Loss: ? Estimated blood loss was minimal.[facility] DISE[facility] INSTITUTESpecimen (Source)Anatomical Location / LateralityCollection Method / VolumeCollection TimeReceived Time06/09/2021 11:42 AM EDT Narrative Authorizing ProviderResult TypeResult StatusDavibora Mohr MDDIGESTIVE DISEASE REGIONALFinal ResultPerforming OrganizationAddressCity/State/ZIP CodePhone Number [facility] [address] [place] [address] [facility] from Last 3 Months or Most Recently Relevant to Health Maintenance Insurance Advance Directives TypeDate RecordedPatient RepresentativeExplanationAdvance Directive(s)06/17/2021 8:30 AM Care Teams Team MemberRelationshipSpecialtyStart DateEnd Date Camron Ruiz MD PCP - GeneralFamily Medicine06/03/21
[2025-10-31 11:29] LABS: Iron 70.0 ug/dL (50.0-170.0)
[2025-10-31 11:35] LABS: Hematocrit 44.3 % (36.0-48.0); Hemoglobin 14.7 g/dL (12.0-16.0); Immature Granulocytes Abs Auto 0.03 10^3/uL (0.00-0.03); Immature Granulocytes Pct Auto 0.4 % (0.0-0.5); Lymphocytes Absolute Auto 1.7 10^3/uL (1.2-3.8); Mean Corpuscular HGB Conc 33.2 g/dL (29.9-35.2); Mean Corpuscular Hemoglobin 29.6 pg (26.7-34.0); Mean Corpuscular Volume 89.3 fL (81.0-99.0); Platelet Count 181 10^3/uL (150-450); Red Blood Count 4.96 10^6/uL (4.20-5.40); White Blood Count 6.9 10^3/uL (4.0-11.0)
[2025-10-31 11:43] LABS: Alanine Aminotransferase 31 U/L (14-59); Albumin Globulin Ratio 0.9; Albumin Level 3.3 g/dL (3.4-5.0); Alkaline Phosphatase 104 U/L (46-116); Anion Gap 9.3; Aspartate Amino Transferase 30 U/L (15-37); Blood Urea Nitrogen 14.0 mg/dL (7.0-18.0); Calcium 9.2 mg/dL (8.5-10.1); Carbon Dioxide 27.7 mmol/L (21.0-32.0); Chloride 105 mmol/L (98-107); Cholesterol 172 mg/dL (<=200); Estimated GFR (African America >60 (>=60 mL/min/1.73m^2); Estimated GFR (Non-African Ame >60 (>=60 mL/min/1.73m^2); Free T3 2.26 pg/mL (2.18-3.98); Globulin 3.6 g/dL; Glucose 97 mg/dL (74-106); HDL Cholesterol 41 mg/dL (40-60); Potassium 4.0 mmol/L (3.5-5.1); Sodium 138 mmol/L (136-145); Thyroid Stimulating Hormone 0.757 uIU/mL (0.358-3.740); Total Protein 6.9 g/dL (6.4-8.2); Triglycerides 180 mg/dL (<=150); VLDL CHOLESTEROL 36.0 mg/dL
== END 2025-10-31 10:19 | disposition home or self-care (01) ==
PROVIDERS: PCP Family Medicine; Visit Provider Family Medicine
DX: K21.9 Gastro-esophageal reflux disease without esophagitis (principal); E03.9 Hypothyroidism, unspecified; M54.50 Low back pain, unspecified; M17.0 Bilateral primary osteoarthritis of knee; D64.9 Anemia, unspecified; E55.9 Vitamin D deficiency, unspecified; E78.5 Hyperlipidemia, unspecified; R73.09 Other abnormal glucose; Z12.12 Encounter for screening for malignant neoplasm of rectum
CPT/HCPCS: 36415; 80053; 80061; 82306; 83036; 83525; 83540; 84436; 84443; 84481; 85025